=== PATIENT | female | born 1945 | race Caucasian/White ===

== ENCOUNTER 2017-10-12 13:22 | Inpatient (IN) | payer MEDICARE, MEDICAID ==
--- OUTSIDE RECORDS SUMMARY | 2017-10-12 13:29 | XMS REPORT ---
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 Shruti Clarke DO Primary Care Physician Unavailable Payers Type Date Identification Numbers Payment Provider Subscriber Medicare Primary Effective: Policy Number: Medicare Joselin Munoz 1996 [id number] PayID: [id number] [address] [place] [address] Medigap Part B Effective: 2012 Policy Number: BS Facets Joselin Munoz [id number] Expires: 2017 PayID: [id number] [address] [address] [place] [address] Medigap Part B Effective: 2016 Policy Number: [id number] Medicaid Joselin Munoz Group Name: 1 [address] PayID: [id number] [place] [address] Problems Date Description Provider Status Onset: 04/10/2013 Atrial fibrillation Ruben Bustamatne M.D. Active Onset: 04/10/2013 Chest pain Ruben Bustamante M.D. Active Onset: 04/10/2013 Preoperative cardiovascular Ruben Bustamante M.D. Active examination Onset: 04/10/2013 Abnormal results of cardiovascular Ruben Bustamante M.D. Active function studies Family History Date Family Member(s) Problem(s) Comments General Lung Cancer father General Arthritis bother, sister General Pulmonary Embolism (Pe) father Social History Type Date Description Comments Lives With Assisted living Occupation Retired ETOH Use Denies alcohol use Smoking Patient is a former smoker pack and half a day, quit in 1999 Recreational Drug Use Denies Drug Use Exercise Type/Frequency Does not exercise Allergies, Adverse Reactions, Alerts Date Description Reaction Status Severity Comments 04/10/2013 Dilaudid active Medications Medication Date Status Form Strength Qnty SIG Indications Ordering Provider Oxycodone HCL Active up to 6 tabs Unknown /0000 po qd prn Gemfibrozil Active Tablets 600mg 180ta 1 po bid Unknown / bs Furosemide Active Tablets 20mg 90tab 1 po qd Unknown /0000 s Lantus Active Solution 100Unit/M 6Vial sliding Unknown / L s scale Atorvastatin Active Tablets 40mg 90tab take 1 Unknown Calcium / s tablet at bedtime Citalopram Active Tablets 20mg 30tab 1 po qd Unknown Hydrobromide /0000 s Metoprolol Active Tablets 25mg 1/2 tab by Unknown Tartrate /0000 mouth twice a day Amiodarone HCL Active Tablets 200mg 1 by mouth Unknown / every day Warfarin Sodium Active Tablets 2.5mg Unknown / Humalog Active Solution 100Unit/M 4u subq 1x a Unknown /0000 Cartridge L day 6u subq 2x a day Milk Of Active Suspension 400mg/5ML 30 Unknown Magnesia /0000 milliliters by mouth every day at bedtime as needed for constipation Skin Prep Wipes Active Unknown /0000 Tylenol Extra Active Tablets 500mg 2 by mouth Unknown Strength /0000 as needed Vitamin C Active Capsules 500-400mg 1 by mouth Unknown / -Unit every day W/Vitamin E Vitamin D3 Active Tablets 95179Qxyl one by mouth Unknown Ultra Potency /0000 once weekly Miconazole Active Cream 2% apply twice Unknown Nitrate /0000 a day until clear Baclofen 00/00 Active 5mg q 8hrs Unknown /0000 Calazime Skin Active Paste Unknown Protectant/Oliv / amine Hydrocortisone Active Ointment 1% Unknown /0000 Methocarbamol 05/16 Hx Tablets 500mg 45tab one to two Dany Waller /2009 s up to qid Farida, - prn for M.D. 04/08 Hydrocodone/Vimal 03/28 Hx Tablets 5-325mg 90tab 1-2 po qid Dany Waller taminophen s prn Román Iqbal M.DFrancisco 04/09 Oxycodone HCL 01/09 Hx Tablets 5mg 90tab 1-2 po qid Dany Waller /2009 s prRomán Gar M.D. 03/28 Valium 10/04 Hx Tablets 5mg 3tabs 1 po 2 hours Dany Waller prior to mri Farida, - may take one M.D. 04/09 more q 1 hr /2012 prn anxiety Levothyroxine Hx Tablets 125mcg 90tab 1 po qd Unknown Sodium /0000 s - 03/[address] 20mg 90cap 1 po qd Unknown /0000 s - 03/16 Multivitamins Hx Capsules 30cap 1 capsule Unknown /0000 s ophelia;y - 03/16 Gabapentin Hx Capsules 100mg 240ca 2 po bid Unknown /0000 ps - 03/16 B-12 Hx 1200mg 1 po qd Unknown /0000 - 03/16 Glipizide Hx Tablets 5mg 60tab 1 po bid Unknown /0000 s - 03/07 Aspirin Ec Hx Tablets DR 81mg 100ta 1 by mouth Unknown /0000 bs every day - 03/16 Glucosamine Hx Capsules 1500Com bid Unknown Chondroitin /0000 1500 Complex - Maximum 03/10 Celexa 00 Hx Tablets 10mg 1 by mouth Unknown /0000 every day - 03/10 Docusate Sodium 00 Hx Capsules 100mg 1 by mouth Unknown /0000 twice a day - 03/16 Humalog Mix Hx Suspension (75-25)10 8 units sq Unknown 75/25 /0000 0Unit/ML twice a day - with 03/26 breakfast /2017 and dinner Cipro Hx Tablets 500mg 1 by mouth Unknown /0000 twice a day - 03/16 Albuterol 00 Hx Nebulizer (2.5mg/3M 1 vial via Unknown Sulfate /0000 L) 0.083% nebulizer 4 - times daily 03/16 as needed Medications Administered in Office Medication Date Status Form Strength Qnty SIG Indications Ordering Provider Inj, Administered Injection Ruben D. Regadenoson, 013 Valdo Bustamante 0.1 MG Technetium TC Administered Injection Ruben DFrancisco 99M 013 Valdo Bustamante Tetrofosmin, Per Unit Dose Up To 40 Millicuries Vital Signs Date Vital Result Comment 09/26/2017 Height 65 inches 5'5" Heart Rate 66 /min Respiratory Rate 20 /min Body Temperature 96.1 F Pain Level 0 06/27/2017 Heart Rate 49 /min BP Systolic Sitting 134 mmHg BP Diastolic Sitting 64 mmHg Body Temperature 96.5 F 03/26/2017 Height 65 inches 5'5" Weight 229.00 lb BP Systolic 115 mmHg BP Diastolic 81 mmHg Respiratory Rate 16 /min Body Temperature 98.2 F BMI (Body Mass Index) 38.1 kg/m2 12/07/2016 Height 65 inches 5'5" Weight 266.00 lb BP Systolic 115 mmHg BP Diastolic 83 mmHg Body Temperature 97.7 F Pain Level 5 BMI (Body Mass Index) 44.3 kg/m2 09/18/2016 Height 65 inches 5'5" Weight 266.00 lb Heart Rate 72 /min BP Systolic 130 mmHg BP Diastolic 82 mmHg Respiratory Rate 20 /min Body Temperature 96.0 F Pain Level 0 BMI (Body Mass Index) 44.3 kg/m2 08/24/2016 Height 65 inches 5'5" Weight 266.00 lb Heart Rate 68 /min Respiratory Rate 16 /min Body Temperature 97.6 F Pain Level 4 BMI (Body Mass Index) 44.3 kg/m2 07/24/2016 Height 65 inches 5'5" Weight 266.00 lb Heart Rate 60 /min BP Systolic 130 mmHg BP Diastolic 68 mmHg Respiratory Rate 16 /min Pain Level 1 BMI (Body Mass Index) 44.3 kg/m2 06/19/2016 Height 65 inches 5'5" Weight 266.00 lb Pain Level 0 BMI (Body Mass Index) 44.3 kg/m2 06/01/2016 Height 65 inches 5'5" Weight 266.00 lb Respiratory Rate 18 /min Pain Level 0 BMI (Body Mass Index) 44.3 kg/m2 05/10/2016 Respiratory Rate 17 /min Body Temperature 98.8 F Pain Level 0 04/24/2016 Height 65 inches 5'5" Weight 266.00 lb Heart Rate 60 /min Respiratory Rate 16 /min Pain Level 0 BMI (Body Mass Index) 44.3 kg/m2 04/13/2016 Height 65 inches 5'5" Weight 266.00 lb Pain Level 0 BMI (Body Mass Index) 44.3 kg/m2 04/03/2016 Height 65 inches 5'5" Weight 266.00 lb Heart Rate 60 /min Respiratory Rate 16 /min Pain Level 0 BMI (Body Mass Index) 44.3 kg/m2 03/29/2016 Height 65 inches 5'5" Weight 266.00 lb Pain Level 0 BMI (Body Mass Index) 44.3 kg/m2 03/22/2016 Height 65 inches 5'5" Weight 266.00 lb Body Temperature 95.8 F BMI (Body Mass Index) 44.3 kg/m2 03/15/2016 Height 65 inches 5'5" Weight 266.00 lb Pain Level 2 BMI (Body Mass Index) 44.3 kg/m2 03/08/2016 Height 65 inches 5'5" Weight 266.00 lb Heart Rate 56 /min BP Systolic 120 mmHg BP Diastolic 59 mmHg BMI (Body Mass Index) 44.3 kg/m2 05/27/2014 Height 63 inches 5'3" Weight 280.00 lb with shoes Heart Rate 64 /min regular BP Systolic Sitting 102 mmHg right arm large cuff BP Diastolic Sitting 58 mmHg right arm large cuff BP Systolic Standing 100 mmHg right arm large cuff BP Diastolic Standing 54 mmHg right arm large cuff Respiratory Rate 18 /min BMI (Body Mass Index) 49.6 kg/m2 04/10/2013 Height 63 inches 5'3" Weight 264.00 lb Heart Rate 48 /min BP Systolic 104 mmHg Ra large cuff BP Diastolic 54 mmHg Ra large cuff BP Systolic Sitting 104 mmHg LA large cuff BP Diastolic Sitting 56 mmHg LA large cuff BP Systolic Standing 100 mmHg LA BP Diastolic Standing 54 mmHg LA Respiratory Rate 16 /min BMI (Body Mass Index) 46.8 kg/m2 Results Test Date Test Result H/L Range Note Laboratory test 02/06/2016 Point of Care Glucose 209 mg/dL High 74-106 1 finding Laboratory test 02/06/2016 Point of Care Glucose 182 mg/dL High 74-106 2 finding Creatinine 06/12/2011 Creatinine 2.0 mg/dL High 0.50-1.40 One Over Creatinine 0.50 eGFR Non- 24.9 > 60 eGFR 32.0 > 60 3 Comp Metabolic Panel 01/15/2010 Sodium 137 mmol/L 135-145 Potassium 4.6 mmol/L 3.5-5.0 Chloride 106 mmol/L 101-111 Co2 (Carbon Dioxide) 22.0 mmol/L 22-32 Anion Gap 9.0 mmol/L 2-11 4 Glucose 208 mg/dL High 70-100 5 BUN 32 mg/dL High 6-24 Creatinine 1.70 mg/dL High 0.50-1.40 One Over Creatinine 0.50 BUN/Creatinine Ratio 18.8 8-20 Calcium 8.8 mg/dL 8.1-9.9 6 Total Protein 6.5 GM/DL 6.2-8.1 Albumin 3.2 GM/DL 3.2-5.2 Globulin 3.3 GM/DL 2-4 Albumin/Globulin Ratio 1.0 1-3 Bilirubin Total 0.5 mg/dL 0.4-1.5 7 Alkaline Phosphatase 70 U/L 30-110 Alt (SGPT) 9 U/L Low 14-54 Ast (Sgot) 33 U/L 12-42 eGFR Non- 32.0 > 60 eGFR 38.7 > 60 8 CBC With Electronic Diff 01/15/2010 White Blood Count 10.6 CUMM 4.8-10.8 Red Cell Count 2.75 CUMM Low 4.2-5.4 Hemoglobin 8.6 g/dL Low 12.0-16.0 Hematocrit 25 % Low 35-47 Mean Corpuscular Volume 92 um3 79-97 Mean Corpuscular Hemoglob 31 pg 27-31 Mean Corpuscular HGB Cone 34 g/dL 32-36 Redcell Distribution WDTH 15 % 10.5-15 Platelet Count 252 CUMM 150-450 Mean Platelet Volume 7.3 um3 Low 7.4-10.4 Manual Differential 01/15/2010 Polysegmented Neutrophil 78 % 38-83 Lymphocyte 17 % Low 25-47 Monocyte 4 % 0-13 Eosinophil 1 % 0-6 Absolute Neutrophil Count 8.2 RBC Morphology NORMAL Urinalysis W/Microscopic 01/15/2010 Ua Color YELLOW Yellow Appearance-Urine CLEAR Clear Specific [place]-Ur 1.014 1.010-1.030 Esterase-Urine 2+ Negative Nitrite NEGATIVE Negative Anfzhjbxiqtn-Pz-WUZ NEGATIVE Negative Protein-Urine NEGATIVE Negative PH-Urine 5.5 5-9 Blood-Urine NEGATIVE Negative Ketones-Urine NEGATIVE Negative Bilirubin-Ur NEGATIVE Negative Glucose-Urine NEGATIVE Negative WBC-Urine 20-25 0-5 RBC-Urine 0-2 0-2 Epith Cells-Ur FEW None Bacteria-Urine 4+ None Urine Culture & 01/15/2010 Urine Culture ENTEROBACTER AER <SEE 9 Sensitivi Sensitivi NOTE> Anaerobic Culture 01/15/2010 Anaerobic Culture NG5 10 Bottle Bottle Blood Culture 01/15/2010 Aerobic Culture Bottle NG5 11 Ursc-1 01/15/2010 Ampicillin >=32 Amikacin <=2 Ciprofloxacin <=0.25 Ceftriaxone 8 Cefazolin >=64 Nitrofurantoin 64 Gentamicin <=1 Imipenem 2 Levofloxacin <=0.12 Trimeth-Sulfa <=20 Ceftazidime 16 Tigecycline <=0.5 Piperacillin/Tazobactam 8 Surgical Pathology 01/12/2010 Surgical Pathology <SEE 12 NOTE> Laboratory test 01/05/2010 Release Date 01/14/10 13, 14 finding Type And Screen 01/05/2010 Patient Blood Type O POSITIVE 13 Antibody Screen NEGATIVE 13 Specimen Discard Date 01/19/10 13, 15 Basic Metabolic Panel 01/05/2010 Sodium 141 mmol/L 135-145 13 Potassium 5.4 mmol/L High 3.5-5.0 13 Chloride 109 mmol/L 101-111 13 Co2 (Carbon Dioxide) 22.0 mmol/L 22-32 13 Anion Gap 10.0 mmol/L 2-11 13, 16 Glucose 54 mg/dL Low 70-100 13, 17 BUN 49 mg/dL High 6-24 13 Creatinine 2.23 mg/dL High 0.50-1.40 13 One Over Creatinine 0.40 13 BUN/Creatinine Ratio 22.0 High 8-20 13 Calcium 10.2 mg/dL High 8.1-9.9 13, 18 eGFR Non- 23.4 > 60 13 eGFR 28.3 > 60 13, 19 Laboratory test finding 01/05/2010 PTT (Aptt) 29.4 25.15-38.53 13, 20 Protime 01/05/2010 Inr 1.05 High 0.97-1.03 13, 21 Protime 12.4 SEC High 11.5-12.2 13, 22 CBC With Electronic Diff 01/05/2010 White Blood Count 9.1 CUMM 4.8-10.8 13 Red Cell Count 2.77 CUMM Low 4.2-5.4 13 Hemoglobin 8.6 g/dL Low 12.0-16.0 13 Hematocrit 26 % Low 35-47 13 Mean Corpuscular Volume 94 um3 79-97 13 Mean Corpuscular Hemoglob 31 pg 27-31 13 Mean Corpuscular HGB Cone 33 g/dL 32-36 13 Redcell Distribution WDTH 16 % High 10.5-15 13 Platelet Count 356 CUMM 150-450 13 Mean Platelet Volume 7.1 um3 Low 7.4-10.4 13 Gran % 69.2 % 38-83 13 Lymph % 19.2 % Low 25-47 13 Mononuclear % 8.0 % 1-9 13 Eosinophil % 3.2 % 0-6 13 Basophil % 0.4 % 0-2 13 Abs Lymphs 1.7 1.0-4.8 13 Abs Mononuclear 0.7 0-0.8 13 Absolute Neutrophil Count 6.3 1.5-7.7 13 Abs Eosinophils 0.3 0-0.6 13 Abs Basophils 0 0-0.2 13, 23 1 Handcrew Foreman: [id number] BEL RENNER 2 Handcrew Foreman: [id number] [place] JUN 12 Because ethnic data is not always readily available, this report includes an eGFR for both -Americans and non- Americans. The National Kidney Disease Education Program (NKDEP) does not endorse the use of the MDRD equation for patients that are not between the ages of 18 and 70, are , have extremes of body size, muscle mass, or nutritional status, or are non- or non-. According to the National Kidney Foundation, irrespective of diagnosis, the stage of the disease is based on the level of kidney function: Stage Description GFR(mL/min/1.73 m(2)) 1 Kidney damage with normal or decreased GFR 90 2 Kidney damage with mild decrease in GFR 60-89 3 Moderate decrease in GFR 30-59 4 Severe decrease in GFR 15-29 5 Kidney failure <15 (or dialysis) 4 Anion gap measurement may be of limited value in the presence of any alkalosis, especially in a combined acid base disorder. . 5 Note change in reference range as of 01/29/08. The change was based on recommendations from the [place] [employer]. 6 Please note change in reference range effective 07 . 7 A metabolite of Naproxen, O-desmethylnaproxen, has been shown to interfere with the Jendrassik-Paton method for measuring total bilirubin. Samples from patients who have taken Naproxen have shown spurious elevation in total bilirubin levels. 8 Because ethnic data is not always readily available, this report includes an eGFR for both -Americans and non- Americans. The National Kidney Disease Education Program (NKDEP) does not endorse the use of the MDRD equation for patients that are not between the ages of 18 and 70, are , have extremes of body size, muscle mass, or nutritional status, or are non- or non-. According to the National Kidney Foundation, irrespective of diagnosis, the stage of the disease is based on the level of kidney function: Stage Description GFR(mL/min/1.73 m(2)) 1 Kidney damage with normal or decreased GFR 90 2 Kidney damage with mild decrease in GFR 60-89 3 Moderate decrease in GFR 30-59 4 Severe decrease in GFR 15-29 5 Kidney failure <15 (or dialysis) 9 ENTEROBACTER AEROGENES 100^75-100,000 ORGANISMS/ML (MANY)^CCU NORMAL CED 25^10-25,000 ORGANISMS/ML (MODERATE)^CCU 10 NO GROWTH AFTER 5 DAYS 11 NO GROWTH AFTER 5 DAYS 12 ---- RUN DATE: 01/19/10 [facility] NMI LIVE PAGE 1 RUN TIME: 1215 Specimen Inquiry RUN USER: INTERFACE -- Name: JOSELIN MUNOZ Status: DIS IN Re01/12/10 Age/Sex: 64/F Unit#: [id number] Location: [facility]. : 43 -- Spec[id number] [facility]: 01/12/[address] [facility] [address]: Dany bailey MD Spec Type: SURGICAL P Received: 01/12/10-1203 Copies to: SPECIMEN L3 TO L5 LAMINA AND SPINUS PROCESS AND LIGAMENT HISTORY PRE-OP DIAGNOSIS: L3/L5 Lumbar stenosis. GROSS DESCRIPTION The specimen is received in formalin labelled Joselin Branham Michela, L3 to L5 Lamina and Spinous Process and Ligament, and consists of multiple fragments of bone and dense fibrous tissue measuring in aggregate 5.0 x 4.0 x 2.5 cm. Composite Technician section, one cassette after decal. 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 B) Normocellular bone marrow with mixed trilineal hematopoiesis. C) Ligament tissue with dense fibrosis and myxoid degeneration. Signed Electronically by: FOREIGN BROWN MD 01/19/10 1214 -- -- DEPARTMENT OF PATHOLOGY, [address] [place] [address] [facility] Permit #[id number] Foreign Brown M.D. Director Chaz Kat M.D. Process Architect Dir mariam -- 13 01/12 14 ANY BLOOD NOT GIVEN WILL BE RELEASED AT 0700 ON THE ABOVE DATE UNLESS DOCTOR NOTIFIES LAB OTHERWISE. 15 PREADMISSION TESTING SAMPLES FOR BLOOD BANK WILL BE HELD FOR 14 DAYS FROM THE DATE OF COLLECTION *IF* THE FOLLOWING CRITERIA ARE MET: 1) THE PATIENT HAS *NOT* BEEN IN THE LAST 3 MONTHS. 2) THE PATIENT HAS *NOT* BEEN TRANSFUSED IN THE LAST 3 MONTHS. PREADMISSION TESTING SAMPLES WILL *NOT* BE HELD FOR 14 DAYS FROM PATIENTS WHO IN THE LAST 3 MONTHS: 1) HAVE BEEN 2) HAVE BEEN TRANSFUSED THESE PATIENTS *MUST* BE COLLECTED WITHIN 3 DAYS OF THE SURGERY DATE. 16 Anion gap measurement may be of limited value in the presence of any alkalosis, especially in a combined acid base disorder. . 17 Note change in reference range as of 01/29/08. The change was based on recommendations from the [place] Diabetes [employer]. 18 Please note change in reference range effective 07 . 19 Because ethnic data is not always readily available, this report includes an eGFR for both -Americans and non- Americans. The National Kidney Disease Education Program (NKDEP) does not endorse the use of the MDRD equation for patients that are not between the ages of 18 and 70, are , have extremes of body size, muscle mass, or nutritional status, or are non- or non-. According to the National Kidney Foundation, irrespective of diagnosis, the stage of the disease is based on the level of kidney function: Stage Description GFR(mL/min/1.73 m(2)) 1 Kidney damage with normal or decreased GFR 90 2 Kidney damage with mild decrease in GFR 60-89 3 Moderate decrease in GFR 30-59 4 Severe decrease in GFR 15-29 5 Kidney failure <15 (or dialysis) 20 PLEASE NOTE NEW REFERENCE RANGE EFFECTIVE 09. 21 Recommended INR for Patients on Oral Anticoagulants Prophylaxis 2.0 - 3.0 Treatment of thrombosis 2.0 - 3.0 Prevention of embolism 2.0 - 3.0 Prevention of embolism from prosthetic heart valves 2.5 - 3.5 22 DIAGNOSIS,TREATMENT,AND THERAPY MUST BE BASED ON THE INR VALUE ALONE. 23 Lymphopenia % Anemia Procedures Date CPT Code Description Status 06/19/2016 10668 Walking Cast Completed 06/01/2016 16320 Walking Cast Completed 05/19/2016 11914 EKG, Interpretation Only Completed 05/10/2016 53096 Walking Cast Completed 04/26/2016 68248 Walking Cast Completed 04/24/2016 80706 Walking Cast Completed 04/13/2016 20866 Walking Cast Completed 04/03/2016 01747 Walking Cast Completed 03/29/2016 85117 Walking Cast Completed 03/22/2016 89665 Short Leg Cast Completed 03/15/2016 11287 Short Leg Cast Completed 02/06/2016 37339 ORIF Open TX Bimalleolar Ankle FX Includes Internal Completed Fixation 02/06/2016 39360 ORIF Open TX Bimalleolar Ankle FX Includes Internal Completed Fixation 02/01/2016 32484 EEG Recording Awake & Asleep Completed 01/20/2016 45442 EEG Recording Awake & Drowsy Completed 01/19/2016 93900 EKG, Interpretation Only Completed 01/17/2016 70303 ECHO Transthorasic Realtime 2D W Doppler & Color Completed Flow [facility]osp 05/27/2014 14194 EKG Tracing & Interpretation Completed 04/24/2013 86377 Stress Test Completed 04/24/2013 93763 Myocardial Perfusion Imaging Tomographic (Spect) Completed Multiple Studies 04/10/2013 48454 EKG Tracing & Interpretation Completed 12/03/2012 25843 EKG, Interpretation Only Completed 12/02/2012 88299 ECHO Transthorasic Realtime 2D W Doppler & Color Completed Flow [facility]osp 01/12/2010 89513 Pimentel/Facet/Foraminotomy;Ea Addl Segment; Cerv, Thora, Or Completed Lumbar 01/12/2010 28420 Pimentel/Facet/Foraminotomy;Vertebral Segment; Lumbar Completed Encounters Type Date Location Provider CPT E/M Dx Office Visit 08/27/2017 [facility] [place] [address] M25.572 8:15a Office Visit 06/27/2017 [facility] M.D. 21154 M19.172 9:15a Of [facility] Office Visit 05/29/2017 [facility] [place] [address] M25.512 8:45a Office Visit 05/21/2017 [facility] [place] [address] I63.10 8:15a I48.0 Z51.81 Z79.01 Office Visit 05/09/2017 8:30[place] [address] S70.312A S70.311A Office Visit 04/26/2017 10:00a [facility] [place] [address] I63.40 S82.842G R47.01 Z99.3 Office Visit 04/23/2017 8:15a [facility] [place] [address] I48.2 Z79.01 I10 E03.9 Z79.4 E11.9 E78.5 Z99.3 Office Visit 04/18/2017 8:00a [facility] Katherin Lind, OBEY 10033 R05 Office Visit 03/26/2017 8:45a [facility] 71081 S82.842D Of Juju Lyle M14.672 Office Visit 03/13/2017 8:00a [facility] Katherin Lind, OBEY 89575 M25.572 Office Visit 02/13/2017 8:00a [facility] Taniya Appiah M.D. 86249 I63.10 I48.0 Z51.81 Z79.01 Office Visit 01/29/2017 10:00a [facility] Taniya Appiah M.D. 65327 I63.10 I48.0 Z51.81 Z79.01 Office Visit 12/07/2016 10:15a [facility] [address]1012 M14.672 Juju Lyle M25.372 Office Visit 09/18/2016 10:30a [facility] 81170 S82.842D Of Juju Lyle Office Visit 08/24/2016 10:00a [facility] 88714 S82.842D Of Juju Lyle Office Visit 07/24/2016 9:30a [facility] 27074 S82.842D Of Juju Lyle Office Visit 06/19/2016 9:30a [facility] 46267 S82.842D Of Juju Lyle Office Visit 06/01/2016 9:15a [facility] 42831 S82.842D Of Juju Lyle S82.842D Office Visit 05/24/2016 12:55p [facility], [place], [address] K92.2 Micha Lyle I48.91 E11.8 I10 Office Visit 05/23/2016 [facility] [place], [address] K92.2 Hospitalists MFranciscoDFrancisco I48.91 E11.8 I10 Office Visit 05/22/2016 12:55p [facility] [place], [address]11 K92.2 Hospitalists MFranciscoDFrancisco I48.91 E11.8 I10 Office Visit 05/21/2016 12:54p [facility] [place], [address] K92.2 Hospitalists MFranciscoDFrancisco I48.91 E11.8 Office Visit 05/20/2016 12:54p [facility] Taniya Appiah, 22920 K92.2 Hospitalists MFranciscoDFrancisco I48.91 E11.8 I10 Office Visit 05/19/2016 12:53p [facility] Taniya Armandohn, 93666 K92.2 Hospitalists MFranciscoDFrancisco I48.91 E11.8 I10 Office Visit 05/18/2016 12:53p [facility], Rob Parr, 29732 K92.2 Hospitalists NFranciscoPFrancisco I48.91 E11.8 I10 Office Visit 05/10/2016 9:15a [facility], 7101[address] S82.842D Of Juju Lyle S82.842D Office Visit 02/08/2016 2:32p [facility] Jose Angel Bam, [address] E11.9 Assoc,pc PA Hospitalists Z96.7 Z78.9 Z87.81 Office Visit 02/07/2016 [facility] [address] E11.9 Assoc,pc PA Hospitalists Z96.7 Z78.9 Z87.81 Office Visit 02/06/2016 2:28p [facility] Jose Angel Elisabetha-Yani, 32558 E11.9 Assoc,pc PA Hospitalists Z96.7 Z78.9 Z87.81 Office Visit 02/04/2016 3:50p [facility], 46640 S82.842A Juju Lyle Office Visit 02/04/2016 4:13p [facility], 05900 S82.852A Juju Lyle Office Visit 02/03/2016 9:15a [facility] [place] Qu[place] [address] I69.320 I10 S82.842A Z79.01 Office Visit 02/02/2016 7:00a [facility], 98723 S82.842A Juju Lyle Office Visit 02/02/2016 1:49p [facility], Rob Keshav, 48423 R47.01 Hospitalists N.P. I48.2 N30.01 I63.412 Office Visit 02/01/2016 2[facility]p [facility] [place] [address] R47.01 Assoc, Hospitalists Valdo I48.2 N30.01 I63.412 Office Visit 01/24/2016 12:44p [facility], Varun Hodges, 30801 I63.9 Hospitalists M.DFrancisco E11.9 E66.01 Z79.4 Office Visit 01/23/2016 12:43p [facility], Varun Hodges, 58630 I63.9 Hospitalists MFranciscoDFrancisco E11.9 E66.01 Z79.4 Office Visit 01/22/2016 11:33a [facility] Wu Hernandez 59023 I63.512 Valdo Valiente I65.29 I10 I48.91 Office Visit 01/22/2016 12[facility]p [facility] Taniya App[place], 58141 I63.9 Hospitalists Valdo E11.9 E66.01 Z79.4 Office Visit 01/21/2016 12:12p [facility] Wu Hernandez 64015 I63.512 Valdo Valiente I48.91 I65.29 I10 Office Visit 01/21/2016 12:42p [facility], Taniya Appiah, 32662 I63.9 Hospitalists MFranciscoDFrancisco E11.9 E66.01 Z79.4 Office Visit 01/20/2016 12[facility] [place] [address] I63.9 Hospitalists E11.9 E66.01 Z79.4 Office Visit 01/20/2016 12:09p [facility] Myra Marquez, 75457 I63.512 M.DFrancisco R25.1 R40.0 I10 I48.91 Office Visit 01/19/2016 12:06p [facility] Myra Marquez, 79909 I63.512 M.D. I10 I48.91 R25.1 R40.0 Office Visit 01/19/2016 12:41p [facility], [place] [address] I63.9 Hospitalists E11.9 E66.01 Z79.4 Office Visit 01/18/2016 1:56p [facility] Myra Marquez, 97728 I63.512 M.D. I10 I48.91 I65.29 Office Visit 01/18/2016 12:41p [facility], [place] [address] I63.9 Hospitalists E11.9 E66.01 Z79.4 Office Visit 01/17/2016 12:40p [facility], [place] [address] I63.9 Hospitalists E11.9 E66.01 Z79.4 Office Visit 01/17/2016 9:22a [facility] Darek Edmondpert, 65845 I63.512 I10 I48.91 Office Visit 01/16/2016 12:39p [facility], Blane Martinez M.D. 36682 G45.9 Hospitalists E11.9 E66.01 Z79.4 Office Visit 05/27/2014 9:30a [facility] Ruben Bustamante 47990 427.31 Vamsi Lyle Office Visit 04/10/2013 1:00p [facility] Ruben Bustamante 59362 427.31 Vamsi Lyle 786.50 V72.81 794.39 Office Visit 12/11/2012 3:51p [facility],scooter Martinez M.D. 52435 578.1 Hospitalists 280.0 Office Visit 12/10/2012 3:50p [facility],scooter Martinez M.D. 42039 578.1 Hospitalists 280.0 Office Visit 12/09/2012 3:50p [facility],pc [place], 43259 578.1 Hospitalists M.D. 280.0 Office Visit 12/08/2012 3:50p [facility],pc [place], 46572 578.1 Hospitalists M.D. 280.0 Office Visit 12/06/2012 3:36p [facility],pc [place], 02491 285.1 Hospitalists M.D. 578.9 411.89 Office Visit 12/05/2012 3:36p [facility],pc [place], 02801 285.1 Hospitalists M.D. 578.9 411.89 Office Visit 12/04/2012 3:36p [facility],pc [place], 31861 285.1 Hospitalists M.D. 578.9 411.89 Office Visit 12/03/2012 3:35p [facility],pc [place], 28924 285.1 Hospitalists M.D. 578.9 411.89 Office Visit 12/03/2012 4:07p [facility] Jalen Snyder M.D., 11080 794.31 [facility] FAC, FSCAI 411.1 424.1 Office Visit 12/02/2012 3:35p [facility], [place], 57375 285.1 Hospitalists M.D. 578.9 794.31 Office Visit 06/18/2012 1:20p [facility] Dany Iqbal, 41829 724.02 Of Vamsi M.DFrancisco Office Visit 06/12/2011 1:20p [facility] Dany Iqbal 62521 724.02 Of Vamsi M.DFrancisco Office Visit 05/15/2011 3:00p [facility] Dany Iqbal 43756 724.02 Of Vamsi M.DFrancisco Office Visit 12/26/2010 11:00a [facility] Dany Iqbal 23844 724.02 Of Vamsi M.DFrancisco Office Visit 09/25/2010 11:40a [facility] Dany Iqbal, 70929 724.02 Of Seam Stay Stitcher M.D. Office Visit 06/26/2010 9:40a [facility] Dany Iqbal, 28340 724.02 Of Vamsi Lyle Office Visit 01/09/2010 3:40p [facility] Dany Iqbal, 74613 724.02 Of Vamsi MMartell Office Visit 12/09/2009 10:40a [facility] Dany Iqbal, 23534 724.02 Of Vamsi Lyle Office Visit 11/22/2009 1:40p [facility] Dany Iqbal, 81333 781.2 Of Vamsi Lyle Office Visit 10/14/2009 9:20a [facility] Dany Iqbal, 74658 781.2 Of Vamsi Lyle Office Visit 10/04/2009 1:40p [facility] Dany Iqbal, 74794 781.2 Of Vamsi Lyle Plan of Care Future Appointment(s):12/26/2017 9:30 am - Rio Tim M.D. at [facility]09/26/2017 - Rio Tim M.D.M14.622 Charcot's joint, left elbowFollow up:3 months
[2017-10-12 14:47] LABS: ABS Basophils 0.1 10^3/ul (0-0.2); ABS Eosinophils 0.5 10^3/ul (0-0.6); ABS Lymphocytes 1.3 10^3/ul (1.0-4.8); ABS Monocytes 0.6 10^3/ul (0-0.8); ABS Neutrophils 5.2 10^3/ul (1.5-7.7); ABS Nucleated RBC 0 10^3/ul; Eosinophil % 5.9 % (0-6); Hematocrit 36 % (35-47); Hemoglobin 11.8 g/dl (12.0-16.0); Lymphocyte % 17.5 % (25-47); Mean Corpuscular HGB Conc 33 g/dl (31-36); Mean Corpuscular Hemoglobin 30 pg (27-31); Mean Corpuscular Volume 93 fL (80-97); Mean Platelet Volume 8.5 um3 (7.4-10.4); Nucleated Red Blood Cells % 0.1; Platelet Count 181 10^3/ul (150-450); Red Blood Count 3.86 10^6/ul (4.0-5.4); Red Cell Distribution Width 15 % (10.5-15); White Blood Count 7.7 10^3/ul (3.5-10.8)
--- NOTE | 2017-10-12 14:55 | RAD ---
INDICATION: Left ankle deformity. COMPARISON: Comparison is made with a prior study from September 18, 2016. TECHNIQUE: 3 views of the left ankle were obtained. FINDINGS: There is diffuse soft tissue swelling. The patient is status post operative reduction internal fixation. There are metallic plates present along the distal tibia and fibula transfixed with multiple screws. There is medial dislocation of the talus relative to the tibia which has progressed slightly from the prior study. The metallic plate present along the medial aspect of the tibia is eroding into the dome of the talus which appears similar to the prior study. There is a chronic ununited bony density medial to the talus likely representing an old fracture fragment which is also unchanged possibly arising from the medial malleolus. IMPRESSION: 1. DIFFUSE SOFT TISSUE SWELLING. 2. MEDIAL DISLOCATION OF THE TALUS RELATIVE TO THE TIBIA WHICH HAS PROGRESSED FROM THE PRIOR STUDY. 3. EROSION OF THE MEDIAL SURGICAL PLATE INTO THE DOME OF THE TALUS SIMILAR TO THE PRIOR EXAM. 4. CONSIDER AN UNDERLYING INFECTIOUS PROCESS.
[2017-10-12 15:04] LABS: EGFR Non-African American 27.3 (>60)
[2017-10-12] MEDS ORDERED: ceFAZolin 1 GM VIAL(*) 1 GM in NS 0.9% 50 ML* 50 ML IVPB ONE (16:47)
[2017-10-12] MEDS ORDERED: ceFAZolin 1 GM* X ONE DOSE IVPB ×2 (17:00)
--- NOTE | 2017-10-12 17:18 | RAD ---
INDICATION: Possible sepsis. COMPARISON: Correlation is made with a prior study from May 18, 2016. TECHNIQUE: A portable view of the chest was obtained. FINDINGS: Cardiac and mediastinal contours appear to be within normal limits. There is a small infiltrate at the right lung base. The lungs are otherwise clear. No pleural effusion is seen. IMPRESSION: SMALL RIGHT BASILAR INFILTRATE.
[2017-10-12] MEDS ORDERED: Acetaminophen TAB* 325 MG PO PRN (17:51)
[2017-10-12] MEDS ORDERED: Al Hydrox/Mg Hydrox/Simet LIQ* 30 ML UDC PO PRN (17:51)
[2017-10-12] MEDS ORDERED: Dextrose 50% Syringe 50 ML* 25 GM/50 ML SYRINGE IV PUSH PRN (17:53)
[2017-10-12] MEDS ORDERED: Baclofen TAB* 10 MG PO PRN (17:54)
[2017-10-12] MEDS ORDERED: hydrALAZINE IV* 20 MG/ML VIAL IV SLOW PU PRN (17:56)
[2017-10-12 17:58] LABS: INR 2.4 (0.77-1.02)
[2017-10-12] MEDS ORDERED: Phytonadione Oral Solution* 5 MG/25 ML UDC PO ONE (17:58)
[2017-10-12] MEDS ORDERED: ceFAZolin 1 GM VIAL(*) 1 GM in NS 0.9% 50 ML* 50 ML IVPB SCH (18:00)
[2017-10-12] MEDS ORDERED: Insulin GLARGINE(*) 1 UNITS UNIT SUBCUT SCH (18:00)
--- NOTE | 2017-10-12 18:02 | ED ---
Palmoo Reyes Elizabeth, scribed for Stephan Painting MD on 10/12/17 at 1431 . Lower Extremity - HPI Summary HPI Summary: This patient is a 72 year old F presenting to [facility] with a chief complaint of an open wound to her left ankle. Patient notes she had surgery to repair a deformity to her left ankle 14-15 months ago and the hardware is visible through the wound. Symptoms aggravated by nothing. Symptoms alleviated by nothing. Patient reports inability to ambulate. Patient resides at [facility]. 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 Onset of Pain: Prior to Arrival Onset/Duration: Still Present Severity Currently: Mild Pain Intensity: 0 Timing: Constant Location: Is Discrete @ - left ankle Aggravating Factor(s): Nothing Alleviating Factor(s): Nothing - Allergies/Home Medications Allergies/Adverse Reactions: Allergies Allergy/AdvReac Type Severity Reaction Status Date / Time hydromorphone Allergy Altered Verified 10/12/17 13:35 Mental Status rivaroxaban [From Xarelto] Allergy Bleeding Verified 10/12/17 13:35 Home Medications: Home Medications Acetaminophen [Tylenol Extra Strength] 1,000 mg PO BEDTIME 10/12/17 [History Confirmed 10/12/17] Ascorbic Acid TAB* [Vitamin C TAB*] 500 mg PO BID 10/12/17 [History Confirmed 10/12/17] Atorvastatin* [Lipitor 80 MG*] 40 mg PO QPM 10/12/17 [History Confirmed 10/12/17 ] Baclofen TAB* [Lioresal TAB*] 5 mg PO Q8H PRN 10/12/17 [History Confirmed ] Cholecalciferol TAB* [Vitamin D TAB*] 50,000 unit PO MONTHLY 10/12/17 [History Confirmed 10/12/17] Ferrous Sulfate TAB* 325 mg PO DAILY 10/12/17 [History Confirmed 10/12/17] Furosemide TAB* [Lasix TAB*] 20 mg PO DAILY 10/12/17 [History Confirmed 10/12/17 ] Insulin LISPRO* [HumaLOG*] 4 unit SUBCUT QAM 10/12/17 [History Confirmed ] Insulin LISPRO* [HumaLOG*] 6 unit SUBCUT BID WITH MEALS 10/12/17 [History Confirmed 10/12/17] Levothyroxine TAB* [Synthroid TAB*] 125 mcg PO DAILY 10/12/17 [History Confirmed 10/12/17] Lidocaine 4% TOPICAL* [Xylocaine Topical 4%*] 1 patch TOPICAL DAILY 10/12/17 [ History Confirmed 10/12/17] Magnesium Hydroxide LIQ* [Milk of Magnesia LIQ*] 30 ml PO Q6H PRN 10/12/17 [ History Confirmed 10/12/17] Metoprolol Succinate XL TAB* [Toprol XL TAB*] 25 mg PO DAILY 10/12/17 [History Confirmed 10/12/17] Polyethylene Glycol 3350* [Miralax*] 17 gm PO DAILY 10/12/17 [History Confirmed 10/12/17] Warfarin TAB(*) [Coumadin TAB(*)] 2 mg PO QPM 10/12/17 [History Confirmed ] PMH/Surg Hx/FS Hx/Imm Hx Endocrine/Hematology History: Reports: Hx Diabetes - IDDM, Hx Thyroid Disease - hypothyroid, Hx Anemia Cardiovascular History: Reports: Hx Atrial Fibrillation, Hx Coronary Artery Disease, Hx Hypercholesterolemia, Hx Hypertension, Other Cardiovascular Problems /Disorders - A Fib, myocardial stenosis Denies: Hx Pacemaker/ICD Respiratory History: Reports: Hx Asthma, Hx Sleep Apnea GI History: Reports: Hx Gastroesophageal Reflux Disease, Hx Gastrointestinal Bleed, Other GI Disorders - GI BLEED History: Reports: Hx Kidney Infection Denies: Hx Dialysis, Hx Renal Disease Musculoskeletal History: Reports: Hx Arthritis, Other Musculoskeletal History - CHRONIC BACK PAIN, bilat knee replacements, recent L ankle fracture Sensory History: Reports: Hx Cataracts - Implant surgery L eye 2007, Hx Contacts or Glasses Denies: Hx Hearing Aid, Hx Hearing Problem Opthamlomology History: Reports: Hx Cataracts - Implant surgery L eye 2007, Hx Contacts or Glasses Neurological History: Reports: Hx CVA - with right-sided sequela, Hx Transient Ischemic Attacks (TIA) - "Mini-strokes" 20 yrs ago Denies: Hx Dementia, Hx Developmental Delay, Hx Headaches, Hx Migraine, Hx Nerve Disease, Hx Seizures, Hx Spinal Cord Injury, Other Neuro Impairments/ Disorders Psychiatric History: Reports: Hx Anxiety, Hx Depression, Other Psychiatric Issues/Disorders - claustrophobia Denies: Hx Panic Disorder - Cancer History Hx Chemotherapy: No Hx Radiation Therapy: No - Surgical History Surgery Procedure, Year, and Place: R knee replacement 2010, L3/L4 laminectomy. left knee replacement 2012. L ankle ORIF 01/10/16 Hx Anesthesia Reactions: No - Immunization History Date of Tetanus Vaccine: 2010 Date of Influenza Vaccine: Fall 2011 Infectious Disease History: Unable to Obtain/Confirm Infectious Disease History: Reports: Hx Shingles - pt states about 6 months ago , ON HER BACK Denies: Hx Clostridium Difficile, Hx Hepatitis, Hx Human Immunodeficiency Virus (HIV), Hx of Known/Suspected MRSA, Hx Tuberculosis, History Other Infectious Disease, Traveled Outside the [place] in Last 30 Days - Family History Known Family History: Positive: Hypertension, Other - lung cancer (father), brain cancer (brother) Negative: Cardiac Disease, Diabetes - Social History Alcohol Use: None Substance Use Type: Reports: None Smoking Status (MU): Former Smoker Type: Cigarettes Have You Smoked in the Last Year: No Review of Systems Negative: Fever Negative: Epistaxis Negative: Abdominal Pain Positive: Other - pain in left ankle All Other Systems Reviewed And Are Negative: Yes Physical Exam - Summary Physical Exam Summary: Appearance: The patient is well-nourished in no acute distress and in no acute pain. Skin: The skin is warm and dry and skin color reflects adequate perfusion. HEENT: The head is normocephalic and atraumatic. The pupils are equal and reactive. The conjunctivae are clear and without drainage. Nares are patent and without drainage. Mouth reveals moist mucous membranes and the throat is without erythema and exudate. The external ears are intact. The ear canals are patent and without drainage. The tympanic membranes are intact. Neck: the neck is supple with full range of motion and non-tender. There are no carotid bruits. There is no neck vein distension. Respiratory: Chest is non-tender. Lungs are clear to auscultation and breath sounds are symmetrical and equal. Cardiovascular: Heart is regular rate and rhythm. There is no murmur or rub auscultated. There is no peripheral edema and pulses are symmetrical and equal. Abdomen: The abdomen is soft and non-tender. There are normal bowel sounds heard in all four quadrants and there is no organomegaly palpated. Musculoskeletal: There is no back tenderness noted. Extremities are non-tender. There is good capillary refill. There is no peripheral edema or calf tenderness elicited. Varus deformity of left ankle. The left ankle is lax with a 2-3cm open wound over the lateral aspect of the ankle, through which hardware is visible. Neurological: Patient is alert and oriented to person, place and time. The patient has symmetrical motor strength in all four extremities. Cranial nerves are grossly intact. Deep tendon reflexes are symmetrical and equal in all four extremities. Psychiatric: The patient has an appropriate affect and does not exhibit any anxiety or depression. Triage Information Reviewed: Yes Vital Signs On Initial Exam: Initial Vitals Pulse Pulse Ox 53 96 10/12/17 13:29 10/12/17 13:29 Vital Signs Reviewed: Yes Diagnostics - Vital Signs Vital Signs Temp Pulse Resp BP Pulse Ox 10/12/17 14:00 48 19 96 10/12/17 13:53 98.7 F 54 14 120/75 95 10/12/17 13:30 50 97 10/12/17 13:29 53 96 - Laboratory Lab Results: Lab Results 10/12/17 10/12/17 10/12/17 Range/Units 14:39 14:39 14:39 WBC 7.7 (3.5-10.8) 10^3/ul RBC 3.86 L (4.0-5.4) 10^6/ul Hgb 11.8 L (12.0-16.0) g/dl Hct 36 (35-47) % MCV 93 (80-97) fL MCH 30 (27-31) pg MCHC 33 (31-36) g/dl RDW 15 (10.5-15) % Plt Count 181 (150-450) 10^3/ul MPV 8.5 (7.4-10.4) um3 Neut % (Auto) 68.0 (38-83) % Lymph % (Auto) 17.5 L (25-47) % [place] % (Auto) 7.6 H (0-7) % Eos % (Auto) 5.9 (0-6) % Baso % (Auto) 1.0 (0-2) % Absolute Neuts (auto) 5.2 (1.5-7.7) 10^3/ul Absolute Lymphs (auto) 1.3 (1.0-4.8) 10^3/ul Absolute Monos (auto) 0.6 (0-0.8) 10^3/ul Absolute Eos (auto) 0.5 (0-0.6) 10^3/ul Absolute Basos (auto) 0.1 (0-0.2) 10^3/ul Absolute Nucleated RBC 0 10^3/ul Nucleated RBC % 0.1 Sodium 140 (139-145) mmol/L Potassium 4.7 (3.5-5.0) mmol/L Chloride 107 (101-111) mmol/L Carbon Dioxide 26 (22-32) mmol/L Anion Gap 7 (2-11) mmol/L BUN 50 H (6-24) mg/dL Creatinine 1.81 H (0.51-0.95) mg/dL Est GFR ( Amer) 35.1 (>60) Est GFR (Non-Af Amer) 27.3 (>60) BUN/Creatinine Ratio 27.6 H (8-20) Glucose 143 H (70-100) mg/dL Lactic Acid 0.8 (0.5-2.0) mmol/L Calcium 9.2 (8.6-10.3) mg/dL Total Bilirubin 0.30 (0.2-1.0) mg/dL AST 11 L (13-39) U/L ALT 10 (7-52) U/L Alkaline Phosphatase 63 (34-104) U/L C-Reactive Protein 3.75 (< 5.00) mg/L Total Protein 7.1 (6.4-8.9) g/dL Albumin 3.5 (3.2-5.2) g/dL Globulin 3.6 (2-4) g/dL Albumin/Globulin Ratio 1.0 (1-3) Result Diagrams: 10/12/17 14:39 10/12/17 14:39 Lab Statement: Any lab studies that have been ordered have been reviewed, and results considered in the medical decision making process. - Radiology Ankle Left 3+VWS Xray Interpretation: Positive (See Comments) Radiology Interpretation Completed By: Radiologist CXR Xray Interpretation: Positive (See Comments) - IMPRESSION: SMALL RIGHT BASILAR INFILTRATE. Dr. Painting has reviewed this report. Radiology Interpretation Completed By: Radiologist Lower Extremity Course/Dx - Course Course Of Treatment: Ms. Abernathy presented with a concern for an open wound over her left ankle prosthesis laterally. She is at the correction and says that they take her brace off at night so she thinks the wound is new. She had surgery 14 months ago for a trimalleolar fracture and has had a varus deformity since and does not ambulate. She has a 2-3 cm wound with a small amount of thick pus laterally over the ankle, the foot moves freely in relation to the ankle and the prosthesis can be seen through the wound. She has normal vitals, her labs are normal and her x-ray is read by the radiologist as concerning for infection. Dr. Warren requests that we have the hospitalist service admit the the patient and she will take her to the OR to clean it out tomorrow. She was given Ancef here in the ED. - Diagnoses Provider Diagnoses: Wound dehiscence - Critical Care Time Critical Care Time: 30-74 min Discharge - Sign-Out/Discharge Documenting (check all that apply): Discharge/Admit/Transfer - Discharge Plan Condition: Stable Disposition: ADMITTED TO [facility] Referrals: Sunny Baltazar MD [Primary Care Provider] - - Billing Disposition and Condition Condition: STABLE Disposition: [facility] [place] The documentation as recorded by the Palomo metz Elizabeth accurately reflects the service I personally performed and the decisions made by , Stephan Painting MD.
[2017-10-12] MEDS: Docusate CAP* 100 MG PO SCH (21:54)
[2017-10-12] MEDS: Atorvastatin* 40 MG TAB PO SCH (21:54)
[2017-10-12] MEDS: Insulin LISPRO* 1 UNITS UNIT SUBCUT SCH (21:54)
[2017-10-12] MEDS: Heparin VIAL(*) 5000 UNITS/ML VIAL (FIVE THOUSAND) SUBCUT SCH (21:55)
[2017-10-12] MEDS: Lidocaine Patch REMOVE* 1 NOTE MISC SCH (21:55)
--- NOTE | 2017-10-12 22:20 | HP ---
CC: Dr. Tim; Dr. Warren; Dr. Clarke; Dr. Canales HISTORY AND PHYSICAL: DATE OF ADMISSION: 10/12/17 PRIMARY CARE PROVIDER: Shruti Clarke DO from [facility] as well as Dr. Canales from [facility]. CHIEF COMPLAINT: Left ankle wound. HISTORY OF PRESENT ILLNESS: Joselin Abernathy is a 72-year-old female with history of paroxysmal atrial fibrillation as well as expressive aphasia due to cardioembolic stroke in 2016, who is status post ORIF of the left ankle also noted in 2016. The patient stated that she had been having more swelling of the left ankle and she noted today that her ankle had a wound and you could see hardware through that. The patient stated that she had been by Dr. Tim recently within approximately 2 weeks for a sore on the bottom of her right foot , but he did not mention of any abnormalities of the left ankle at this point - as per patient. Her left ankle has major postsurgical abnormality/deformity and that has been chronic. She has had chronic problems with ambulation and now she is basically nonambulatory. She has had no problems with fevers and she had been feeling at her baseline apart from that, but once again the family noted that the wound was opened today. She did state that she gained approximately 15 pounds in the past 4 to 5 months. PAST MEDICAL HISTORY: 1. History of hypertension. 2. Diabetes. 3. History of atrial fibrillation. 4. History of GI bleed while on Xarelto. The patient also has history of small bowel AVMs. 5. History of cardioembolic stroke in 2016 with residual mild aphasia and right sided weakness 6. History of ORIF of the left ankle in February [address] Tim. 7. Hyperlipidemia. 8. Obesity. 9. Chronic back pain. 10. Hypothyroidism. 11. History of obstructive sleep apnea. 12. History of bilateral total knee replacements and revision of the right knee. 13. History of laminectomy at L3-L4. MEDICATIONS: At [facility] where the patient is resident of include: 1. Coumadin 2 mg daily, decreased due to high INR just 3 days ago. 2. Lidocaine patch 1 patch daily on the left upper back. 3. Milk of magnesia on a p.r.n. basis. 4. Vitamin D3 50,000 units monthly. 5. Toprol XL 25 mg daily. 6. Levothyroxine 125 mcg daily. 7. Insulin lispro 4 units subcutaneously in a.m. 8. Insulin Lantus 26 units daily. 9. Furosemide 20 mg daily. 10. Ferrous sulfate 325 mg daily. 11. Baclofen 5 mg every 4 hours p.r.n. 12. Lipitor 40 mg daily. 13. Oxycodone 5 mg every 8 hours p.r.n. 14. Insulin lispro 6 units b.i.d. with lunch and dinner. 15. Vitamin C 500 mg b.i.d. 16. Amiodarone 200 mg daily. 17. Coumadin 2 mg q.p.m. 18. MiraLAX 17 g daily. 19. Acetaminophen 1000 mg at bedtime. ALLERGIES: Include DILAUDID and XARELTO. The patient had a GI bleed while on XARELTO. FAMILY HISTORY: Positive for father with history of NE and CVA. SOCIAL HISTORY: The patient is a long-term resident of [facility]. Her surrogate decision makers are her brother and sister. She is DNR. REVIEW OF SYSTEMS: Positive for chronic right bottom of the foot wound. Positive for numbness of bilateral feet, which is chronic. The patient also has positive expressive aphasia and chronic right sided weakness due to CVA in 2016 She is unable to understand everything but has problems with verbalizing sometimes. Positive for chronic lower back. Positive for 15-pound weight gain. Positive for constipation. All the remaining 12 systems were reviewed with the patient and the patient's family and were otherwise negative. PHYSICAL EXAMINATION GENERAL: The patient is a pleasant 72-year-old female with a BMI of 51. The patient is in no acute distress. Alert, awake, and oriented x3. Please note that the patient has mixed aphasia. Sometimes, she has difficulties naming objects. VITAL SIGNS: Blood pressure of 187/93, heart rate of 49 and regular, respiratory rate 14, oxygen saturation 96% on room air, temperature of 98.3. HEENT: Head: Atraumatic, normocephalic. Eyes: Pupils are equal, reactive to light and accommodation. Oropharynx clear. Mucosa moist. NECK: Supple. No JVD. No bruits bilaterally. RESPIRATORY: Clear to auscultation bilaterally. CARDIOVASCULAR: Regular rate and rhythm. No murmur. ABDOMEN: Soft, nontender. Bowel sounds are present in all 4 quadrants. EXTREMITIES: There is trace bilateral ankle edema. Pulses +2 bilaterally. There is no clubbing or cyanosis. Left ankle with chronic appearing post surgical deformity. NEURO EVALUATION: The patient has mixed aphasia, but is able to make her needs known. She has slight R-sided facial droop and R-sided weakness more than left. Bilateral lower extremities are deconditioned and weak.. Both of the lower extremities, she is able to raise against gravity; however, a short period of time only. PSYCHIATRIC EVALUATION: The patient oriented x3 with no evidence of anxiety or depression. SKIN: On evaluation of the skin, the patient has ecchymotic spots on first and second toes of bilateral feet that appeared to be posttraumatic. She has an ecchymotic bruise on the medial aspect of the upper left calf that appears to be at least several days old. Overlying the left lateral malleolus, there is what appears to be a slit like open area of approximately 3 cm in length and approximately 0.5 cm in width, which exposed connective tissue likely related to the joint capsule. There is also a small area of opening that shows exposed metalware. Overall, the area is not draining, no erythema, and no evidence of cellulitis. It resembles an area of an old dehisced wound. On the bottom of the right foot laterally, the patient has a small area of what appears to be decubitus ulcer of approximately 1 cm, circular crater- like opening unstageable due to slough on the bottom. The ulcer does not appear to be deep. DIAGNOSTIC STUDIES/LAB DATA: Laboratory data showed white blood cell count of 7.7, hemoglobin is 11.8, hematocrit of 36, and platelets 181. INR was 2.4. Sodium was 140, potassium 4.7, chloride 107, carbon dioxide 26, BUN 50, creatinine 1.81, which shows the patient's chronic kidney disease. Portable chest x-ray, impression: "Small right basilar infiltrate." Please note that the patient has no symptoms of shortness of breath or cough. Ankle x-ray, impression: "Diffuse soft tissue swelling. Medial dislocation of the talus relative to the tibia, which has progressed from the prior study from 09/18/16. Erosion of the medial surgical plate into the dome of the talus similar to the prior exam. Consider an underlying infectious process." ASSESSMENT AND PLAN: 1. In regards to the patient's ankle wound, it has an exposed hardware. At this point, I discussed briefly with Dr. Warren, who stated that the patient likely will need a surgical intervention. The patient's INR is therapeutic and she needs to have her Coumadin reversed with vitamin K. She is going to receive a dose of vitamin K p.o. today. Due to that that she is not toxic appearing and she has no marked leukocytosis and there is no evidence of drainage form the wound, I do not believe that the wound needs to be immediately explored. Dr. Warren will see the patient in consultation in the morning. For the time being, the patient is going to be treated with Ancef intravenously. 2. In regards to the patient's diabetes, the patient is going to be continued on her insulin Lantus as well as insulin sliding scale. 3. The patient has chronic kidney disease stage 3 due to diabetes. It is chronic with creatinine at baseline. 4. In regards to the patient's atrial fibrillation, which is paroxysmal. Currently, the patient is in normal sinus rhythm. She is going to be continued on amiodarone and metoprolol. 5. For her hypertension, the patient is going to be placed on continuation of metoprolol and amiodarone. Hydralazine is going to be utilized as needed for uncontrolled hypertension. I believe the patient has elevated systolic blood pressures due to stress of being in the emergency department. 6. For the patient's DVT prophylaxis, the patient currently is anticoagulated. 7. The patient's code status is do not resuscitate and a MOLST was signed. TIME SPENT: Approximately 75 minutes were spent on admission of this patient, more than half of that time was spent [id number] with the patient during the interview and physical exam. [id number]/[facility] #: [id number] VALE
[2017-10-13] MEDS ORDERED: ceFAZolin 1 GM VIAL(*) 1 GM in NS 0.9% 50 ML* 50 ML IVPB SCH (01:00)
[2017-10-13] MEDS: oxyCODONE TAB* 5 MG TAB PO PRN ×3 (01:58→21:33)
[2017-10-13] MEDS: ceFAZolin 1 GM VIAL(*) 1 GM in NS 0.9% 50 ML* 50 ML IVPB SCH ×2 (05:43→17:10)
[2017-10-13] MEDS: Levothyroxine TAB* 125 MCG TAB PO SCH (05:50)
[2017-10-13] MEDS: Heparin VIAL(*) 5000 UNITS/ML VIAL (FIVE THOUSAND) SUBCUT SCH ×3 (05:51→21:33)
[2017-10-13] MEDS: Insulin LISPRO* 1 UNITS UNIT SUBCUT SCH ×4 (08:11→21:27)
[2017-10-13] MEDS: Ferrous Sulfate TAB* 325 MG PO SCH (08:51)
[2017-10-13] MEDS: Furosemide TAB* 40 MG PO SCH (08:51)
[2017-10-13] MEDS: Amiodarone TAB* 200 MG PO SCH (08:51)
[2017-10-13] MEDS: Polyethylene Glycol 3350* 17 GM PACKET PO SCH (08:51)
[2017-10-13] MEDS: Docusate CAP* 100 MG PO SCH ×2 (08:52→21:33)
[2017-10-13] MEDS ORDERED: Lidocaine 4% TOPICAL* 50 ML TOP.SOLN TOPICAL SCH (09:00)
[2017-10-13 09:39] LABS: INR 1.76 (0.77-1.02)
[2017-10-13] MEDS: Metoprolol Succinate XL TAB* 25 MG PO SCH (09:46)
[2017-10-13] MEDS: Lidocaine PATCH 5%* 1 PATCH TRANSDERM SCH (09:46)
--- NOTE | 2017-10-13 10:17 | PN ---
Subjective Date of Service: 10/13/17 Interval History: Pt feels well. No new complaints Objective Active Medications: Acetaminophen (Tylenol Tab*) 650 mg PO Q4H PRN PRN Reason: FEVER/PAIN Last Admin: 10/13/17 08:50 Dose: 650 mg Al Hydrox/Mg Hydrox/Simethicone (Maalox Plus*) 30 ml PO Q6H PRN PRN Reason: INDIGESTION Amiodarone HCl (Cordarone Tab*) 200 mg PO DAILY [facility] Last Admin: 10/13/17 08:51 Dose: 200 mg Atorvastatin Calcium (Lipitor*) 40 mg PO QPM [facility] Last Admin: 10/12/17 21:54 Dose: 40 mg Baclofen (Lioresal Tab*) 5 mg PO Q8H PRN PRN Reason: SPASMS - MUSCLE Dextrose (D50w Syringe 50 Ml*) 12.5 gm IV PUSH .FOR FS < 60 - SS PRN PRN Reason: FS < 60 Docusate Sodium (Colace Cap*) 100 mg PO BID [facility] Last Admin: 10/13/17 08:52 Dose: 100 mg Ferrous Sulfate (Ferrous Sulfate Tab*) 325 mg PO DAILY [facility] Last Admin: 10/13/17 08:51 Dose: 325 mg Furosemide (Lasix Tab*) 20 mg PO DAILY [facility] Last Admin: 10/13/17 08:51 Dose: 20 mg Heparin Sodium (Porcine) (Heparin Vial(*)) 5,000 units SUBCUT Q8HR [facility] Last Admin: 10/13/17 05:51 Dose: 5,000 units Hydralazine HCl (Apresoline Iv*) 5 mg IV SLOW PU Q6H PRN PRN Reason: BLOOD PRESSURE Cefazolin Sodium 1 gm/ Sodium (Chloride) 50 mls @ 200 mls/hr IVPB 0500,1700 [facility] Last Admin: 10/13/17 05:43 Dose: 200 mls/hr Insulin Glargine (Lantus(*)) 26 units SUBCUT Q24H [facility] Last Admin: 10/12/17 21:54 Dose: 26 unit Insulin Human Lispro (Humalog*) 0 units SUBCUT ACHS [facility] PRN Reason: Protocol Last Admin: 10/13/17 08:11 Dose: Not Given Levothyroxine Sodium (Synthroid Tab*) 125 mcg PO 0600 [facility] Last Admin: 10/13/17 05:50 Dose: 125 mcg Lidocaine (Lidoderm 5% Patch*) 1 patch TRANSDERM DAILY [facility] Last Admin: 10/13/17 09:46 Dose: 1 patch Metoprolol Succinate (Toprol Xl Tab*) 25 mg PO DAILY [facility] Last Admin: 10/13/17 09:46 Dose: 25 mg Oxycodone HCl (Roxycodone Tab*) 5 mg PO Q8H PRN PRN Reason: SEVERE PAIN Last Admin: 10/13/17 01:58 Dose: 5 mg Pharmacy Profile Note (Lidocaine Patch Remove*) 1 note N/A 2100 [facility] Last Admin: 10/12/17 21:55 Dose: 1 note Polyethylene Glycol/Electrolytes (Miralax*) 17 gm PO DAILY [facility] Last Admin: 10/13/17 08:51 Dose: 17 gm Vital Signs - 8 hr 10/13/17 10/13/17 10/13/17 04:07 05:46 07:40 Temperature 97.6 F 97.8 F Pulse Rate 44 48 Respiratory 16 16 18 Rate Blood Pressure 122/44 138/67 (mmHg) O2 Sat by Pulse 98 98 Oximetry Oxygen Devices in Use Now: None Appearance: 72 yo f in nAD, aAOx3, notable expressive aphasia Eyes: No Scleral Icterus, PERRLA Ears/Nose/Mouth/Throat: NL Teeth, Lips, Gums, Mucous Membranes Moist Neck: NL Appearance and Movements; NL JVP, Trachea Midline Respiratory: Symmetrical Chest Expansion and Respiratory Effort, Clear to Auscultation Cardiovascular: NL Sounds; No Murmurs; No JVD, RRR Abdominal: NL Sounds; No Tenderness; No Distention, No Hepatosplenomegaly Lymphatic: No Cervical Adenopathy Extremities: No Clubbing, Cyanosis, - - trace b/l pedal edema Skin: No Nodules or Sclerosis, - - left lateral malleolus wound at 3-4 cm in lenght with visible metalware on bottom of wound. R lateral bottom foot-1 cm crater like shallow decubitus -unstageable due to slugh at bottom of wound Neurological: Alert and Oriented x 3, - - genralized weakness b/l LE's, mixed aphsia, mile r facila droop-chronic Result Diagrams: 10/12/17 14:39 10/12/17 14:39 Additional Lab and Data: Lab Results 05/10/2510/12/17 10/12/17 Range/Units 14:39 14:39 14:39 WBC 7.7 (3.5-10.8) 10^3/ul RBC 3.86 L (4.0-5.4) 10^6/ul Hgb 11.8 L (12.0-16.0) g/dl Hct 36 (35-47) % MCV 93 (80-97) fL MCH 30 (27-31) pg MCHC 33 (31-36) g/dl RDW 15 (10.5-15) % Plt Count 181 (150-450) 10^3/ul MPV 8.5 (7.4-10.4) um3 Neut % (Auto) 68.0 (38-83) % Lymph % (Auto) 17.5 L (25-47) % [place] % (Auto) 7.6 H (0-7) % Eos % (Auto) 5.9 (0-6) % Baso % (Auto) 1.0 (0-2) % Absolute Neuts (auto) 5.2 (1.5-7.7) 10^3/ul Absolute Lymphs (auto) 1.3 (1.0-4.8) 10^3/ul Absolute Monos (auto) 0.6 (0-0.8) 10^3/ul Absolute Eos (auto) 0.5 (0-0.6) 10^3/ul Absolute Basos (auto) 0.1 (0-0.2) 10^3/ul Absolute Nucleated RBC 0 10^3/ul Nucleated RBC % 0.1 Sodium 140 (139-145) mmol/L Potassium 4.7 (3.5-5.0) mmol/L Chloride 107 (101-111) mmol/L Carbon Dioxide 26 (22-32) mmol/L Anion Gap 7 (2-11) mmol/L BUN 50 H (6-24) mg/dL Creatinine 1.81 H (0.51-0.95) mg/dL Est GFR ( Amer) 35.1 (>60) Est GFR (Non-Af Amer) 27.3 (>60) BUN/Creatinine Ratio 27.6 H (8-20) Glucose 143 H (70-100) mg/dL Lactic Acid 0.8 (0.5-2.0) mmol/L Calcium 9.2 (8.6-10.3) mg/dL Total Bilirubin 0.30 (0.2-1.0) mg/dL AST 11 L (13-39) U/L ALT 10 (7-52) U/L Alkaline Phosphatase 63 (34-104) U/L C-Reactive Protein 3.75 (< 5.00) mg/L Total Protein 7.1 (6.4-8.9) g/dL Albumin 3.5 (3.2-5.2) g/dL Globulin 3.6 (2-4) g/dL Albumin/Globulin Ratio 1.0 (1-3) Assess/Plan/Problems-Billing Assessment: 72 yo F with h/o cardioembolic CVA in 2015 and subsequent L ankle fx (s/p ORIF by Dr. Tim in 2015), DM ,obesity, PAF, ambulatory dysfucntion, chronic R sided weakness and expressive aphasia presents with wound noted on left ankle - Patient Problems (1) Unspecified open wound, left ankle, subsequent encounter Comment: Pt had ORIF on left ankle in 01/2016. 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 Her family noted and opened wound on 10/12/17 and brought pot [place] [facility] [place] N/o c/o pain /fevers or discharge from wound. CRP 3 will cont Ancef. Plan for OR in AM with Dr. Tim (2) CKD stage 3 due to type 2 diabetes mellitus Comment: creat at baseline (3) CVA (cerebral vascular accident) Comment: - L parietal CVA with expressive/receptive aphasia in 01/2016, neuro deficits at baseline. (4) Diabetes Comment: Continue Lantus and ISS (5) Hypothyroidism Comment: Continue home synthroid (6) DVT prophylaxis Comment: INR 1.7 today. will d/c with ortho is further tx with vit K needed. will start SCDs
[2017-10-13] MEDS ORDERED: Phytonadione Oral Solution* 5 MG/25 ML UDC PO ONE (10:43)
--- NOTE | 2017-10-13 16:01 | CONS ---
INPATIENT ORTHOPEDIC CONSULTATION NOTE: DATE OF CONSULT: 10/13/17. ATTENDING SURGEON: Mary Warren MD. Thank you for this orthopedic consultation. CHIEF COMPLAINT: Left ankle wound. HISTORY OF PRESENT ILLNESS: Ms. Abernathy is a 72-year-old female with multiple medical comorbidities. She presented to the emergency room in the evening on with a new open wound along the left lateral ankle. The patient is seen by Dr. Tim over the last few years for the ankle fracture that went on to heal poorly due to osteoporosis. The patient has been mainly in a wheelchair. She denies having any open wounds along the left ankle. Yesterday, it was noted by the patient and her daughter that she had a 3-cm open wound with visible hardware. She called our answering service and we asked her to come into the ED. The patient reports some dense neuropathy and decreased sensation in that ankle. She has no significant pain. PAST MEDICAL HISTORY: Hypertension, diabetes, atrial fibrillation, GI bleed on Xarelto, small bowel AVMs, cardioembolic stroke in 2016 with mild aphasia and right- sided weakness. Left ankle fracture with ORIF [place] [address] Tim. Hyperlipidemia, morbid obesity, chronic back pain, hypothyroidism, obstructive sleep apnea, osteoarthritis, and lower back pain. PAST SURGICAL HISTORY: ORIF of the left ankle in 2016, Dr. Tim. Bilateral knee replacements, history of lumbar laminectomy. MEDICATIONS: 1. Coumadin 2 mg p.o. daily. 2. Lidocaine patch to the left upper back daily. 3. Milk of mag p.r.n. 4. Vitamin D3 of 50,000 units q. monthly. 5. Toprol-XL 25 mg p.o. daily. 6. Levothyroxine 125 mcg p.o. daily. 7. Insulin lispro 4 units in the a.m. 8. Lantus 26 units daily. 9. Furosemide 20 mg p.o. daily. 10. Baclofen 5 mg q.4 hours p.r.n. 11. Lipitor 40 mg p.o. daily. 12. Oxycodone 5 mg p.o. q.8 hours p.r.n. 13. Insulin lispro 6 units b.i.d. with lunch and dinner. 14. Amiodarone 200 mg p.o. daily. ALLERGIES: DILAUDID, XARELTO. She had a GI bleed while on XARELTO. FAMILY HISTORY: Paternal ID and CVA. SOCIAL HISTORY: The patient is a resident of [facility]. She has a brother and sister, who are her surrogate decision makers. She is DNR. She has not ambulated since the ankle fracture. She is largely in a wheelchair. No tobacco, alcohol, or recreational drug use. REVIEW OF SYSTEMS: A 14 systems reviewed with the patient. Positive for chronic wound on her right foot plantar aspect, positive for the left open wound. Positive for dense bilateral neuropathy. Positive for right-sided weakness. Positive for expressive aphasia, chronic low back pain, weight gain, constipation. Otherwise, the patient reports review of systems is negative or not relevant. PHYSICAL EXAM: Temperature 97.8, heart rate 44, blood pressure 156/61. General : The patient is a morbidly obese female, lying in bed. She is alert and oriented x3. Pleasant mood, appropriate affect. Some expressive aphasia is noted at times. Left lower extremity, she has obvious deformity at the ankle, which is chronic with healed incisions, laterally she has a 3 x 2 cm area with some necrotic fat. There is no significant surrounding cellulitis. She has dense neuropathy and cannot feel sensation of light touch around this. There is minimal drainage. When the necrotic fat is cleared away, there is a visible screw head. She has a 2+ palpable DP pulse. She does not have active dorsiflexion, plantar flexion at the ankle. DIAGNOSTIC STUDIES/LAB DATA: Laboratory studies from 10/12/17 show white blood cell 7.7, hematocrit 36, platelets 181. INR was 2.4; today on 10/13/17 is 1.76. Sodium 140, potassium 4.7, chloride 107, BUN and creatinine 50 and 1.81. CRP 3.75. Radiographs: Multiple views of the patient's left ankle are reviewed. There is hardware visible from prior ankle ORIF. There is severe deformation of this ankle. ASSESSMENT AND PLAN: Ms. Abernathy is a 72-year-old female with a new open wound on her left lateral ankle. She has dense neuropathy. This does not appear to be infected at this point. The patient is a longstanding patient of Dr. Tim, so I did give him a call. He liked her to be n.p.o. after midnight and he will take her to the operating room for a formal debridement, possible closure, possible wound VAC placement tomorrow on 10/14/17. I discussed this option with the patient and she is in favor of it. She will be optimized for surgery. Of course, Coumadin will be held and she will likely get a small dose of vitamin K as well. Until then she should have p.r.n. analgesia. She is currently on IV antibiotics. She will be on bedrest. [id number]/[facility] #: [id number] [facility] CENTERKrish
[2017-10-13] MEDS: Atorvastatin* 40 MG TAB PO SCH (17:10)
[2017-10-13] MEDS: Insulin GLARGINE(*) 1 UNITS UNIT SUBCUT SCH (18:17)
[2017-10-13] MEDS: Lidocaine Patch REMOVE* 1 NOTE MISC SCH (21:33)
[2017-10-14] MEDS: Levothyroxine TAB* 125 MCG TAB PO SCH (05:35)
[2017-10-14] MEDS: ceFAZolin 1 GM VIAL(*) 1 GM in NS 0.9% 50 ML* 50 ML IVPB SCH ×2 (05:35→18:43)
[2017-10-14] MEDS: oxyCODONE TAB* 5 MG TAB PO PRN ×2 (05:35→21:49)
[2017-10-14 05:37] LABS: ABS Basophils 0.1 10^3/ul (0-0.2); ABS Eosinophils 0.5 10^3/ul (0-0.6); ABS Lymphocytes 1.5 10^3/ul (1.0-4.8); ABS Monocytes 0.6 10^3/ul (0-0.8); ABS Neutrophils 4.3 10^3/ul (1.5-7.7); ABS Nucleated RBC 0 10^3/ul; Eosinophil % 7.7 % (0-6); Hematocrit 33 % (35-47); Hemoglobin 10.9 g/dl (12.0-16.0); Lymphocyte % 21.3 % (25-47); Mean Corpuscular HGB Conc 33 g/dl (31-36); Mean Corpuscular Hemoglobin 31 pg (27-31); Mean Corpuscular Volume 92 fL (80-97); Mean Platelet Volume 8.4 um3 (7.4-10.4); Nucleated Red Blood Cells % 0; Platelet Count 165 10^3/ul (150-450); Red Blood Count 3.56 10^6/ul (4.0-5.4); Red Cell Distribution Width 14 % (10.5-15)
[2017-10-14 05:44] LABS: INR 1.23 (0.77-1.02)
[2017-10-14 06:06] LABS: EGFR Non-African American 30.6 (>60)
[2017-10-14] MEDS: Insulin LISPRO* 1 UNITS UNIT SUBCUT SCH ×4 (08:29→22:00)
--- NOTE | 2017-10-14 09:00 | PN ---
Subjective Date of Service: 10/14/17 Interval History: pt feels well, denies pain, SOB. NPO for surgery Objective Active Medications: Acetaminophen (Tylenol Tab*) 650 mg PO Q4H PRN PRN Reason: FEVER/PAIN Last Admin: 10/13/17 08:50 Dose: 650 mg Al Hydrox/Mg Hydrox/Simethicone (Maalox Plus*) 30 ml PO Q6H PRN PRN Reason: INDIGESTION Amiodarone HCl (Cordarone Tab*) 200 mg PO DAILY [facility] Last Admin: 10/13/17 08:51 Dose: 200 mg Atorvastatin Calcium (Lipitor*) 40 mg PO QPM [facility] Last Admin: 10/13/17 17:10 Dose: 40 mg Baclofen (Lioresal Tab*) 5 mg PO Q8H PRN PRN Reason: SPASMS - MUSCLE Last Admin: 10/13/17 21:32 Dose: 5 mg Dextrose (D50w Syringe 50 Ml*) 12.5 gm IV PUSH .FOR FS < 60 - SS PRN PRN Reason: FS < 60 Docusate Sodium (Colace Cap*) 100 mg PO BID [facility] Last Admin: 10/13/17 21:33 Dose: 100 mg Ferrous Sulfate (Ferrous Sulfate Tab*) 325 mg PO DAILY [facility] Last Admin: 10/13/17 08:51 Dose: 325 mg Furosemide (Lasix Tab*) 20 mg PO DAILY [facility] Last Admin: 10/13/17 08:51 Dose: 20 mg Hydralazine HCl (Apresoline Iv*) 5 mg IV SLOW PU Q6H PRN PRN Reason: BLOOD PRESSURE Cefazolin Sodium 1 gm/ Sodium (Chloride) 50 mls @ 200 mls/hr IVPB 0500,1700 [facility] Last Admin: 10/14/17 05:35 Dose: 200 mls/hr Lactated Ringer's (Lactated Ringers 1000 Ml Bag*) 1,000 mls @ 125 mls/hr IV PER RATE [facility] Insulin Glargine (Lantus(*)) 16 units SUBCUT Q24H [facility] Last Admin: 10/13/17 18:17 Dose: 16 unit Insulin Human Lispro (Humalog*) 0 units SUBCUT ACHS [facility] PRN Reason: Protocol Last Admin: 10/14/17 08:29 Dose: Not Given Levothyroxine Sodium (Synthroid Tab*) 125 mcg PO 0600 [facility] Last Admin: 10/14/17 05:35 Dose: 125 mcg Lidocaine (Lidoderm 5% Patch*) 1 patch TRANSDERM DAILY [facility] Last Admin: 10/13/17 09:46 Dose: 1 patch Metoprolol Succinate (Toprol Xl Tab*) 25 mg PO DAILY [facility] Last Admin: 10/13/17 09:46 Dose: 25 mg Oxycodone HCl (Roxycodone Tab*) 5 mg PO Q8H PRN PRN Reason: SEVERE PAIN Last Admin: 10/14/17 05:35 Dose: 5 mg Pharmacy Profile Note (Lidocaine Patch Remove*) 1 note N/A 2100 [facility] Last Admin: 10/13/17 21:33 Dose: 1 note Polyethylene Glycol/Electrolytes (Miralax*) 17 gm PO DAILY [facility] Last Admin: 10/13/17 08:51 Dose: 17 gm Vital Signs - 8 hr 10/14/17 10/14/17 10/14/17 03:47 05:35 07:43 Temperature 97.5 F 97.9 F Pulse Rate 48 48 Respiratory 16 18 16 Rate Blood Pressure 150/42 148/48 (mmHg) O2 Sat by Pulse 93 96 Oximetry Oxygen Devices in Use Now: None Appearance: 72 yo F in nAD, AAOx3 Eyes: No Scleral Icterus, PERRLA Ears/Nose/Mouth/Throat: NL Teeth, Lips, Gums, Mucous Membranes Moist Neck: NL Appearance and Movements; NL JVP, Trachea Midline Respiratory: Symmetrical Chest Expansion and Respiratory Effort, - - faint bibasiliar crackles Cardiovascular: NL Sounds; No Murmurs; No JVD, RRR Abdominal: NL Sounds; No Tenderness; No Distention Lymphatic: No Cervical Adenopathy Extremities: No Clubbing, Cyanosis, - - left foot edema +1-pitting, R ankle trase edema Skin: No Nodules or Sclerosis, - - R lateral foot, small 1 cm pressure ulcer- unstegeable. L lateral malleolus open wound at 3 cm with clean cut edges, slit like openinf up to 1 cm in width, visible joint capsule and metalware Neurological: Alert and Oriented x 3, - - r facial droop, b/l leg weakness- chronic, mixed aphasia-chronic Result Diagrams: 10/14/17 05:20 10/14/17 05:20 Additional Lab and Data: Lab Results 10/12/17 10/12/17 10/12/17 Range/Units 14:39 14:39 14:39 WBC 7.7 (3.5-10.8) 10^3/ul RBC 3.86 L (4.0-5.4) 10^6/ul Hgb 11.8 L (12.0-16.0) g/dl Hct 36 (35-47) % MCV 93 (80-97) fL MCH 30 (27-31) pg MCHC 33 (31-36) g/dl RDW 15 (10.5-15) % Plt Count 181 (150-450) 10^3/ul MPV 8.5 (7.4-10.4) um3 Neut % (Auto) 68.0 (38-83) % Lymph % (Auto) 17.5 L (25-47) % [place] % (Auto) 7.6 H (0-7) % Eos % (Auto) 5.9 (0-6) % Baso % (Auto) 1.0 (0-2) % Absolute Neuts (auto) 5.2 (1.5-7.7) 10^3/ul Absolute Lymphs (auto) 1.3 (1.0-4.8) 10^3/ul Absolute Monos (auto) 0.6 (0-0.8) 10^3/ul Absolute Eos (auto) 0.5 (0-0.6) 10^3/ul Absolute Basos (auto) 0.1 (0-0.2) 10^3/ul Absolute Nucleated RBC 0 10^3/ul Nucleated RBC % 0.1 Sodium 140 (139-145) mmol/L Potassium 4.7 (3.5-5.0) mmol/L Chloride 107 (101-111) mmol/L Carbon Dioxide 26 (22-32) mmol/L Anion Gap 7 (2-11) mmol/L BUN 50 H (6-24) mg/dL Creatinine 1.81 H (0.51-0.95) mg/dL Est GFR ( Amer) 35.1 (>60) Est GFR (Non-Af Amer) 27.3 (>60) BUN/Creatinine Ratio 27.6 H (8-20) Glucose 143 H (70-100) mg/dL Lactic Acid 0.8 (0.5-2.0) mmol/L Calcium 9.2 (8.6-10.3) mg/dL Total Bilirubin 0.30 (0.2-1.0) mg/dL AST 11 L (13-39) U/L ALT 10 (7-52) U/L Alkaline Phosphatase 63 (34-104) U/L C-Reactive Protein 3.75 (< 5.00) mg/L Total Protein 7.1 (6.4-8.9) g/dL Albumin 3.5 (3.2-5.2) g/dL Globulin 3.6 (2-4) g/dL Albumin/Globulin Ratio 1.0 (1-3) Assess/Plan/Problems-Billing Assessment: 72 yo F with h/o cardioembolic CVA in 2015 and subsequent L ankle fx (s/p ORIF by Dr. Tim in 2015), DM ,obesity, PAF, ambulatory dysfucntion, chronic R sided weakness and expressive aphasia presents with wound noted on left ankle - Patient Problems (1) Unspecified open wound, left ankle, subsequent encounter Comment: Pt had ORIF on left ankle in 01/2016. 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 Her family noted an opened wound on 10/12/17 and brought pot to [facility] [place]. N/o c/o pain /fevers or discharge from wound. CRP 3 will cont Ancef. Plan for OR today with Dr. Tim (2) CKD stage 3 due to type 2 diabetes mellitus Comment: creat at baseline (3) CVA (cerebral vascular accident) Comment: - L parietal CVA with expressive/receptive aphasia in 01/2016, neuro deficits at baseline. (4) Diabetes Comment: Continue Lantus and ISS (5) Hypothyroidism Comment: Continue home synthroid (6) Afib Comment: - Paroxysmal afib - currently sounds regular on physical examination, but with h/o CVA, would prefer to resume anticoagulation with close monitoring of her INR as soon as possible - Continue Amiodarone. (7) DVT prophylaxis Comment: INR 1.23 today. cont SCDs
[2017-10-14] MEDS: Ferrous Sulfate TAB* 325 MG PO SCH (09:25)
[2017-10-14] MEDS: Polyethylene Glycol 3350* 17 GM PACKET PO SCH (09:25)
[2017-10-14] MEDS: Docusate CAP* 100 MG PO SCH ×2 (09:25→19:54)
[2017-10-14] MEDS: Furosemide TAB* 40 MG PO SCH (10:19)
[2017-10-14] MEDS: Metoprolol Succinate XL TAB* 25 MG PO SCH (10:20)
[2017-10-14] MEDS: Amiodarone TAB* 200 MG PO SCH (10:20)
[2017-10-14] MEDS: Lidocaine PATCH 5%* 1 PATCH TRANSDERM SCH (10:21)
--- NOTE | 2017-10-14 12:25 | PN ---
Progress Note - Progress Note Date of Service: 10/14/17 SOAP: Subjective: 72 y/o female with dehiscence of left ankle ORIF in 01/2016. Patient has been following Dr. Foster and feels very comfortably with his care, questions about timing of surgery and dressing care post-op. VSS afebrile. Objective: General- Resting in bed comfortably, NAD, AO MSK- DResing intact over L ankle, no drainage noted. Vital Signs Temp 97.9 F 10/14/17 11:26 Pulse 48 10/14/17 11:26 Resp 16 10/14/17 11:26 BP 159/51 10/14/17 11:26 Pulse Ox 96 10/14/17 11:26 Intake & Output 10/13/17 10/14/17 10/14/17 18:59 06:59 18:59 Intake Total 420 900 Output Total 950 Balance 420 -50 Weight 137.438 kg Intake: IVPB 0 ABX - CEFAZOLIN 0 Oral 420 900 Output: Urine 950 Other: Estimated Void Medium Assessment: 72 y/o female with dehiscence of left ankle ORIF in 01/2016 Plan: - OR today with Dr. Foster - DVT prophylaxis post-op - IV cefazolin - Currently NPO Acetaminophen (Tylenol Tab*) 650 mg PO Q4H PRN PRN Reason: FEVER/PAIN Last Admin: 10/13/17 08:50 Dose: 650 mg Al Hydrox/Mg Hydrox/Simethicone (Maalox Plus*) 30 ml PO Q6H PRN PRN Reason: INDIGESTION Amiodarone HCl (Cordarone Tab*) 200 mg PO DAILY [facility] Last Admin: 10/14/17 10:20 Dose: 200 mg Atorvastatin Calcium (Lipitor*) 40 mg PO QPM [facility] Last Admin: 10/13/17 17:10 Dose: 40 mg Baclofen (Lioresal Tab*) 5 mg PO Q8H PRN PRN Reason: SPASMS - MUSCLE Last Admin: 10/13/17 21:32 Dose: 5 mg Dextrose (D50w Syringe 50 Ml*) 12.5 gm IV PUSH .FOR FS < 60 - SS PRN PRN Reason: FS < 60 Docusate Sodium (Colace Cap*) 100 mg PO BID [facility] Last Admin: 10/14/17 09:25 Dose: Not Given Ferrous Sulfate (Ferrous Sulfate Tab*) 325 mg PO DAILY [facility] Last Admin: 10/14/17 09:25 Dose: Not Given Furosemide (Lasix Tab*) 20 mg PO DAILY [facility] Last Admin: 10/14/17 10:19 Dose: 20 mg Hydralazine HCl (Apresoline Iv*) 5 mg IV SLOW PU Q6H PRN PRN Reason: BLOOD PRESSURE Cefazolin Sodium 1 gm/ Sodium (Chloride) 50 mls @ 200 mls/hr IVPB 0500,1700 [facility] Last Admin: 10/14/17 05:35 Dose: 200 mls/hr Lactated Ringer's (Lactated Ringers 1000 Ml Bag*) 1,000 mls @ 125 mls/hr IV PER RATE [facility] Insulin Glargine (Lantus(*)) 16 units SUBCUT Q24H [facility] Last Admin: 10/13/17 18:17 Dose: 16 unit Insulin Human Lispro (Humalog*) 0 units SUBCUT ACHS [facility] PRN Reason: Protocol Last Admin: 10/14/17 12:11 Dose: Not Given Levothyroxine Sodium (Synthroid Tab*) 125 mcg PO 0600 [facility] Last Admin: 10/14/17 05:35 Dose: 125 mcg Lidocaine (Lidoderm 5% Patch*) 1 patch TRANSDERM DAILY [facility] Last Admin: 10/14/17 10:21 Dose: 1 patch Metoprolol Succinate (Toprol Xl Tab*) 25 mg PO DAILY [facility] Last Admin: 10/14/17 10:20 Dose: 25 mg Oxycodone HCl (Roxycodone Tab*) 5 mg PO Q8H PRN PRN Reason: SEVERE PAIN Last Admin: 10/14/17 05:35 Dose: 5 mg Pharmacy Profile Note (Lidocaine Patch Remove*) 1 note N/A 2100 [facility] Last Admin: 10/13/17 21:33 Dose: 1 note Polyethylene Glycol/Electrolytes (Miralax*) 17 gm PO DAILY [facility] Last Admin: 10/14/17 09:25 Dose: Not Given
[2017-10-14] MEDS ORDERED: fentaNYL* 50 MCG/ML 2 ML VIAL (100 MCG VIAL) ONE (12:56)
[2017-10-14] MEDS ORDERED: Etomidate* 2 MG/ML 10 ML VIAL ONE (12:58)
[2017-10-14] MEDS ORDERED: Propofol* 10 MG/ML 20 ML BTL IV PUSH ONE (12:58)
[2017-10-14] MEDS ORDERED: Lidocaine 2% PF * 5 ML VIAL ONE (12:59)
[2017-10-14] MEDS ORDERED: Morphine INJ* 2 MG/ML 1 ML CARPUJECT IV PRN (13:41)
[2017-10-14] MEDS ORDERED: oxyCODONE TAB* 5 MG TAB PO PRN ×2 (13:41)
[2017-10-14] MEDS ORDERED: Scopolamine 1.5 mg* PATCH TRANSDERM PRN (13:41)
[2017-10-14] MEDS ORDERED: Naloxone* 0.4 MG/ML 1 ML VIAL IV PRN (13:41)
[2017-10-14] MEDS ORDERED: Acetaminophen IV 1GM/100ML * 1,000 MG/100 ML VIAL IVPB ONE (13:41)
[2017-10-14] MEDS ORDERED: fentaNYL* 50 MCG/ML 2 ML VIAL (100 MCG VIAL) IV PRN (13:41)
[2017-10-14] MEDS ORDERED: Ondansetron INJ* 2 MG/ML VIAL IV PRN (13:41)
[2017-10-14] MEDS ORDERED: Bupivacaine 0.5%* 50 ML VIAL ONE (14:29)
[2017-10-14] MEDS ORDERED: Midazolam* 1 MG/ML 2 ML VIAL (2 MG) ONE (15:05)
[2017-10-14] MEDS: Atorvastatin* 40 MG TAB PO SCH (18:37)
[2017-10-14] MEDS: Insulin GLARGINE(*) 1 UNITS UNIT SUBCUT SCH (18:44)
[2017-10-14] MEDS: Lidocaine Patch REMOVE* 1 NOTE MISC SCH (22:02)
--- NOTE | 2017-10-15 03:45 | OP ---
DATE OF OPERATION: 10/14/17 - ROOM #[id number] DATE OF : 41 SURGEON: Rio Tim MD GLOBAL CATEGORY MANAGER: Jennifer Ordaz PA-C PRE-OP DIAGNOSIS: Wound breakdown, left lateral hindfoot with exposure of fibular plate. POST-OP DIAGNOSIS: Wound breakdown, left lateral hindfoot with exposure of fibular plate. OPERATIVE PROCEDURE: Removal of plate; irrigation, debridement and wound closure. DESCRIPTION OF PROCEDURE: The patient was taken to the operating room where local anesthetic was instilled around the previous fibular incision. We opened up longitudinally over the fibula plate and the plate was removed with use of the small fragment screwdriver. We scraped the bed of the plate with a large curette. We used sharp dissection distally to ellipticize the distal wound leaving fresh skin edges and fresh subcutaneous tissue. Cultures were sent. There was no purulence noted. We used a pulsatile lavage to thoroughly clean the bed. There was fresh bleeding throughout. Closure of 2-0 Vicryl and Prolene for the skin was then performed as well as a plaster splint. [id number]/[facility] #: [id number] MTDD
[2017-10-15] MEDS: ceFAZolin 1 GM VIAL(*) 1 GM in NS 0.9% 50 ML* 50 ML IVPB SCH (05:38)
[2017-10-15] MEDS: Levothyroxine TAB* 125 MCG TAB PO SCH (05:38)
[2017-10-15 05:50] LABS: INR 1.02 (0.77-1.02)
[2017-10-15 05:52] LABS: ABS Basophils 0 10^3/ul (0-0.2); ABS Eosinophils 0.4 10^3/ul (0-0.6); ABS Monocytes 0.7 10^3/ul (0-0.8); ABS Neutrophils 5.2 10^3/ul (1.5-7.7); ABS Nucleated RBC 0 10^3/ul; Eosinophil % 5.2 % (0-6); Hematocrit 35 % (35-47); Hemoglobin 11.7 g/dl (12.0-16.0); Lymphocyte % 14.1 % (25-47); Mean Corpuscular HGB Conc 33 g/dl (31-36); Mean Corpuscular Hemoglobin 31 pg (27-31); Mean Corpuscular Volume 94 fL (80-97); Mean Platelet Volume 8.7 um3 (7.4-10.4); Nucleated Red Blood Cells % 0; Platelet Count 144 10^3/ul (150-450); Red Blood Count 3.77 10^6/ul (4.0-5.4); Red Cell Distribution Width 14 % (10.5-15); White Blood Count 7.3 10^3/ul (3.5-10.8)
[2017-10-15 06:00] LABS: EGFR Non-African American 34.2 (>60)
[2017-10-15] MEDS: Insulin LISPRO* 1 UNITS UNIT SUBCUT SCH (08:15)
[2017-10-15] MEDS ORDERED: Furosemide TAB* 20 MG PO SCH (09:00)
[2017-10-15] MEDS: Docusate CAP* 100 MG PO SCH (09:41)
[2017-10-15] MEDS: Ferrous Sulfate TAB* 325 MG PO SCH (09:41)
[2017-10-15] MEDS: Metoprolol Succinate XL TAB* 25 MG PO SCH (09:41)
[2017-10-15] MEDS: Amiodarone TAB* 200 MG PO SCH (09:42)
[2017-10-15] MEDS: Polyethylene Glycol 3350* 17 GM PACKET PO SCH (09:44)
[2017-10-15] MEDS: Lidocaine PATCH 5%* 1 PATCH TRANSDERM SCH (09:47)
[2017-10-15 11:17] VITALS: BP 130/48
--- NOTE | 2017-10-15 11:18 | DS ---
CC: Dr. Clarke; Dr. Canales; Dr. Tim; [facility] * DISCHARGE SUMMARY: DATE OF ADMISSION: 10/12/17 DATE OF DISCHARGE: 10/15/17 PRIMARY CARE PROVIDER: Dr. Canales from [facility]. DISCHARGE DIAGNOSIS: Wound breakdown in the left lateral hindfoot with exposure of fibular plate, status post removal of plate, irrigation, debridement , and wound closure, performed by Dr. Tim on 10/14/17. SECONDARY DIAGNOSES: 1. History of morbid obesity with BMI of 52. 2. Obstructive sleep apnea. 3. Hypertension. 4. Diabetes. 5. History of paroxysmal atrial fibrillation. 6. History of gastrointestinal bleed while on Xarelto. Patient also has history of small bowel arteriovenous malformations. 7. History of cardioembolic stroke in 2016 with residual mild aphasia and right - sided weakness. 8. History of open reduction and internal fixation of the left ankle in February 2016. 9. Hyperlipidemia. 10. Chronic back pain. 11. Hypothyroidism. 12. 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 13. Laminectomy at L3-L4 levels. MEDICATIONS AT DISCHARGE: Unchanged from prior and include: 1. Acetaminophen on p.r.n. basis. 2. Amiodarone 200 mg daily. 3. Vitamin C 500 mg b.i.d. 4. Lipitor 40 mg q.p.m. 5. Baclofen 5 mg every 8 hours p.r.n. 6. Vitamin 50,000 units monthly. 7. Ferrous sulfate 325 mg daily. 8. Lasix 20 mg daily. 9. Lantus insulin 26 units subcutaneously q.24 hours. 10. Insulin Humalog 6 units b.i.d. with meals and 4 units q.a.m. 11. Synthroid 125 mcg daily. 12. Lidocaine patch, apply 1 patch to back for pain, change every 72 hours. 13. Milk of magnesia 30 mL every 6 hours p.r.n. 14. Toprol-XL 25 mg daily. 15. Oxycodone 5 mg every 8 hours p.r.n.. 16. MiraLAX 17 g daily. 17. Coumadin 2 mg daily. Patient's new medication is Keflex 250 mg every 8 hours for a total of 10 days and further on as instructed by Dr. Tim. LABORATORY DATA AND STUDIES PERFORMED DURING THE HOSPITAL STAY: Included, on , white blood cell count of 7.3, hemoglobin 11.7, hematocrit 35, and platelets of 144. INR was 1.02 on 10/15/17. Sodium was 138, potassium 4.8, chloride 107, carbon dioxide 23, BUN 36, creatinine 1.49. Microbiology studies showed skin and soft tissue cultures were staph aureus negative and MRSA negative, and showed +2 gram positive cocci in clusters resembling Staph and possible +1 gram positive bacilli. Blood cultures were negative at the time of discharge. Pathology from the hardware is pending at the time of dictation. Ankle x-ray obtained on 10/12/17, impression: "Diffuse soft tissue swelling. Medial dislocation of the talus relative to the tibia which has progressed from the previous study from September 2016. Erosion of the medial surgical plate into the dome of talus similar to the prior exam. Consider underlying infectious process." Patient's portable chest x-ray obtained on admission, impression: "Small right basilar infiltrate." HOSPITALIZATION COURSE: Joselin Abernathy is a 72-year-old obese female with history of expressive aphasia due to previous CVA, as well as right-sided weakness and bilateral lower extremity weakness. Patient lives at [facility] and is basically nonambulatory. For the past several months, she has been having problems with the left ankle. She got immobile and gained weight. On the day of admission, patient's family noted that the patient has a slit-like wound noted overlying the left lateral malleolus where patient previously had hardware placed by Dr. Tim in 2016. Patient was admitted to the hospital. Her CRP was low. Patient was not toxic appearing. The wound had no drainage and the patient had been afebrile, with no leukocytosis. Nevertheless, she was placed on Ancef intravenously during her hospital stay. On Saturday, on 10/14/17 , Dr. Tim saw the patient in consultation and performed removal of the fibular plate, with irrigation of the wound, debridement, and wound closure. Patient's wound was casted and patient is to be nonweightbearing on the left leg until further directions, as per Dr. Tim. Due to MRSA negative but gram positive cocci noted on wound culture, patient is going to be placed on p.o. Keflex for the next 10 days that may need to be extended further depending on Dr. Tim's recommendation. Dr. Tim wishes for the patient to be seen at his office for followup orthopedic evaluation next week. Please note that for her paroxysmal atrial fibrillation, patient was on Coumadin , which was reversed for her surgery. Coumadin is going to be restarted on the day of discharge. Next INR should be performed in a couple of days and followed as per patient's primary care provider. PHYSICAL EXAMINATION AT THE TIME OF DISCHARGE: Blood pressure of 130/47, heart rate of 49 and regular, respiratory rate 16, oxygen saturation 97% on room air, temperature of 98.4. General: The patient is a very pleasant 72-year-old female, whose BMI is 52. Patient is in no acute distress. Alert, awake, and oriented x3. HEENT: Head is atraumatic, normocephalic. Eyes: Pupils are equal , reactive to light and accommodation. Oropharynx clear. Mucosa moist. Neck: Supple. No JVD. No bruits bilaterally. Cardiovascular: Regular rate and rhythm. No murmur. Respiratory: Faint bibasilar crackles. Abdomen: Protuberant, soft, nontender. Bowel sounds are present in all 4 quadrants. Extremities: The left lower extremity is in a cast. There are 2 ecchymotic areas on the tips of the first and second toe, likely posttraumatic. They were there at admission. Patient also has a small ecchymotic area on the right medial calf that was there at admission also. Patient also has a small area of ulceration on the right lateral bottom of her foot, approximately 1 cm in diameter, crater like, with bottom covered with slough and unstageable. Please note that patient was noted to have possibility of small basilar infiltrate on her chest x-ray. She had no symptoms of infection and I suspect it is atelectasis. That was not treated. Patient is nonweightbearing on the left leg. Patient is recommended to have DuoDERM wound care to the right bottom foot ulcer with changes on a daily basis. Please note that this is a short summary of the patient's hospitalization. Please refer to further medical records for details. TIME SPENT: Approximately 45 minutes were spent on patient's discharge. [id number]/[facility] #: [id number] MTDD
[2017-10-17] MEDS ORDERED: Scopolamine PATCH Remove* 1 NOTE MISC PATCH OFF ONE (13:42)
== END 2017-10-15 11:20 | DRG 464 ==
LOC: ED 13:22 → SSU 17:50
PROVIDERS: ADMIT Internal Medicine; ATTEND Internal Medicine
PROC: 0SPG04Z Removal of Internal Fixation Device from Left Ankle Joint, Open Approach (ICD-10-PCS; 2017-10-14)
PROC: 0JBR0ZZ Excision of Left Foot Subcutaneous Tissue and Fascia, Open Approach (ICD-10-PCS; principal; 2017-10-14 14:00)
DX: T84.625A Infection and inflammatory reaction due to internal fixation device of left fibula, initial encounter (principal); T81.30XA Disruption of wound, unspecified, initial encounter; I69.351 Hemiplegia and hemiparesis following cerebral infarction affecting right dominant side; Z68.43 Body mass index [BMI] 50.0-59.9, adult; L97.418 Non-pressure chronic ulcer of right heel and midfoot with other specified severity; E11.42 Type 2 diabetes mellitus with diabetic polyneuropathy; E66.01 Morbid (severe) obesity due to excess calories; E11.22 Type 2 diabetes mellitus with diabetic chronic kidney disease; I69.320 Aphasia following cerebral infarction; N18.3 Chronic kidney disease, stage 3 (moderate); I48.0 Paroxysmal atrial fibrillation; B96.5 Pseudomonas (aeruginosa) (mallei) (pseudomallei) as the cause of diseases classified elsewhere; B96.4 Proteus (mirabilis) (morganii) as the cause of diseases classified elsewhere; B95.2 Enterococcus as the cause of diseases classified elsewhere; X58.XXXA Exposure to other specified factors, initial encounter; E78.5 Hyperlipidemia, unspecified; Z66 Do not resuscitate; E03.9 Hypothyroidism, unspecified; G47.33 Obstructive sleep apnea (adult) (pediatric); M19.90 Unspecified osteoarthritis, unspecified site; M54.5 Low back pain; K59.00 Constipation, unspecified; E11.621 Type 2 diabetes mellitus with foot ulcer; I12.9 Hypertensive chronic kidney disease with stage 1 through stage 4 chronic kidney disease, or unspecified chronic kidney disease; Q27.39 Arteriovenous malformation, other site; Z99.3 Dependence on wheelchair; Z96.653 Presence of artificial knee joint, bilateral; Z79.01 Long term (current) use of anticoagulants; Z79.1 Long term (current) use of non-steroidal anti-inflammatories (NSAID); Z79.4 Long term (current) use of insulin; Z79.891 Long term (current) use of opiate analgesic; Z79.899 Other long term (current) drug therapy; Z88.8 Allergy status to other drugs, medicaments and biological substances; Z82.49 Family history of ischemic heart disease and other diseases of the circulatory system; Z82.3 Family history of stroke
CPT/HCPCS: 36415; 71045; 80048; 80053; 83605; 85025; 85610; 86140; 87040; 87070; 87073; 87077; 87186; 87205; 87640; 87641; 88300; 93005; 99285; A9270-GY; J0690; J1644; J2250; J2704; J3010

== ENCOUNTER → 2017-12-11 20:07 | Emergency (ER) | payer MEDICARE, OTHER ==
[~2017-12-11 20:07] MED LIST: cloNIDine TAB* 0.1 MG PO ONE
--- OUTSIDE RECORDS SUMMARY | 2017-12-11 20:36 | XMS REPORT ---
:1945 External Reference #:[id number] Author Organization [facility] Address [address] [place] [address] [place] [address] Phone [phone] Care Team Providers Name Role Phone Patient's Choice Primary Care Physician Unavailable Payers Type Date Identification Numbers Payment Provider Subscriber Medicare Primary Effective: Policy Number: Medicare Joselin Munoz 1996 [id number] PayID: [id number] [address] [place] [address] [facility] Part B Policy Number: [id number] Medicaid Joselin Munoz Group Name: 1 [address] PayID: [id number] [place] [address] Commercial Expires: 2017 Policy Number: [id number] Robbieevelia Munoz PayID: [id number] [address] [place] [address] Problems Date Description Provider Status Onset: 04/10/2013 Atrial fibrillation Ruben Bustamante M.D. Active Onset: 04/10/2013 Chest pain Ruben Bustamante M.D. Active Onset: 04/10/2013 Preoperative cardiovascular Ruben Bustamante M.D. Active examination Onset: 04/10/2013 Abnormal results of cardiovascular Ruben Bustamante M.D. 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 Onset: 10/01/2017 Medication monitoring Rianna Dias NP Active Onset: 10/01/2017 Long-term current use of Rianna Dias NP Active anticoagulant Onset: 10/01/2017 Abrasion and/or friction burn of Katherin Lind, SOCIAL WELFARE CLERK Active lower limb without infection Onset: 10/01/2017 Abrasion and/or friction burn of Katherin Lind, SOCIAL WELFARE CLERK Active lower limb without infection Onset: 10/01/2017 Cerebral infarction due to Hermelindo Gunderson MD Active embolism of cerebral arteries Onset: 10/01/2017 Displ bimalleol fx l low leg, subs Hermelindo Gunderson MD Active for clos fx w delay heal Onset: 10/01/2017 Dependence on wheelchair Hermelindo uGnderson MD Active Onset: 10/01/2017 Chronic atrial fibrillation Hermelindo Gunderson MD Active Onset: 10/01/2017 Hypothyroidism Hermelindo Gunderson MD Active Onset: 10/01/2017 Long-term current use of insulin Hermelindo Gunderson MD Active Onset: 10/01/2017 Hyperlipidemia Hermelindo Gunderson MD Active Onset: 10/01/2017 Cough Katherin Lind NP Active Onset: 10/01/2017 Displ bimalleol fx l low leg, subs Rio Tim M.D. Active for clos fx w routn heal Onset: 10/01/2017 Charcot's joint of foot Rio Tim M.D. Active Onset: 10/01/2017 Joint derangement Rio Tim M.D. Active Onset: 10/01/2017 Gastrointestinal hemorrhage Key Pelletier M.D. Active Onset: 10/01/2017 Diabetes mellitus [place] M.D. Active Onset: 10/01/2017 Electrocardiogram abnormal Danielito Owens M.D., Active FACC, FASNC Onset: 10/01/2017 Pressure ulcer of unspecified Jennifer GarciaSANAZ dumas Active heel, stage 3 Onset: 10/01/2017 Implantation of joint prosthesis ANN Patel Active Onset: 10/01/2017 Other specified health status ANN Patel Active Onset: 10/01/2017 H/O: fracture ANN Patel Active Onset: 10/01/2017 Encounter for other orthopedic SANAZ Benites Active aftercare Onset: 10/01/2017 Closed bimalleolar fracture Jennifer SANAZ Ordaz Active Onset: 10/01/2017 Closed trimalleolar fracture Rio Tim M.D. Active Onset: 10/01/2017 Aphasia as late effect of Orquidea Quiñones MD Active cerebrovascular accident Onset: 10/01/2017 Acute hemorrhagic cystitis Rob Parr, N.P. 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 Active embolism of middle cerebral artery Onset: 10/01/2017 Cerebral artery occlusion Varun Hodges M.D. Active Onset: 10/01/2017 Morbid obesity Varun Hodges M.D. 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 Active Onset: 10/01/2017 Abnormal involuntary movement Myra Marquez M.D. Active Onset: 10/01/2017 Disturbance of consciousness Myra Marquez M.D. Active Onset: 10/01/2017 Athscl heart disease of [place] Jalen Snyder M.D., FACC, Active coronary artery w/o ang pctrs FSCAI Onset: 10/01/2017 Transient cerebral ischemia Blane Martinez M.D. Active Onset: 10/01/2017 Electrocardiogram abnormal Ruben Bustamante M.D. Active Onset: 10/01/2017 Pre-surgery evaluation Ruben Bustamante M.D. Active Onset: 10/01/2017 Melena Blane Martinez M.D. Active Onset: 10/01/2017 Anemia due to chronic blood loss Blane Martinez M.D. Active Onset: 10/01/2017 Acute posthemorrhagic anemia Key Pelletier M.D. Active Onset: 10/01/2017 Gastrointestinal hemorrhage Key Pelletier M.D. Active Onset: 10/01/2017 Ischemic heart disease Key Pel[place] M.D. Active Onset: 10/01/2017 Impending infarction Jalen Snyder M.D., [facility], Active [facility] Onset: 10/01/2017 Aortic valve disorder Jalen Snyder M.D., [facility], Active [facility] Onset: 10/01/2017 Edema Danielito Owens M.D., Active [facility], [facility] Onset: 10/01/2017 Spinal stenosis of lumbar region Dany Iqbal M.D. Active Onset: 10/01/2017 Postsurgical Status Other Dany Iqbal M.D. Active Onset: 10/01/2017 Postsurgical Status Other Dany Iqbal M.D. Active Onset: 10/01/2017 Abnormal gait Dany Iqbal M.D. Active Family History Date Family Member(s) Problem(s) Comments [...] Reaction Status Severity Comments 04/10/2013 Dilaudid active 10/01/2017 Hydromorphone Hydrochloride active 10/01/2017 Rivaroxaban active Medications Medication Date Status Form Strength Qnty SIG Indications Ordering Provider Warfarin Sodium 10/01 Active Tablets 3mg 90tab 1 tab every I48.91 s night or as [place], directed SOCIAL WELFARE CLERK Levothyroxine 10/01 Active Tablets 125mcg 30tab 1 by mouth E03.9 Rianna Sodium s every day Arun OBEY Oxycodone HCL 10/01 Active Tablets 5mg 30tab 1 tab PO Q R52 Rianna s 8 hrs prn Arun SOCIAL WELFARE CLERK Acetaminophen 10/01 Active Tablets 500mg 2 tabs PO Rianna bid Arun OBEY Ferrous Sulfate 10/01 Active Tablets 325(65Fe) 90tab 1 by mouth mg s every day Arun OBEY Aspercreme 10/01 Active Patches 4% 90uni apply qam L Lidocaine ts shoulder, Arun, remove Q PM SOCIAL WELFARE CLERK Miralax 10/01 Active Powder 3350NF 1unit 17 gm Dany J. s mixed w/ 8 Pollack, olga M.D. water/juice On even days, hold for loose stool. Furosemide Active Tablets 20mg 90tab 1 po qd Unknown /0000 s Lantus Active Solution 100Unit/M 6Vial 26 units SQ E11.9 Vince, /0000 L s Q hs Shruti, DO Atorvastatin Active Tablets 40mg 90tab take 1 E78.5 Vince, Calcium /0000 s tablet at Shruti, bedtime on DO Odd days Metoprolol Active Tablets ER 25mg 90tab 1 by mouth I10 Vince, Succinate ER /0000 24HR s every day Shruti, DO Amiodarone HCL Active Tablets 200mg 1 by mouth Vince, /0000 every day Shruti, DO Humalog Active Solution 100Unit/M 4u subq Vince, /0000 Cartridge L with Shruti, breakfast, DO 6u subq with lunch and dinner Milk Of Magnesia Active Suspension 400mg/5ML 30 Vince, /0000 milliliters Shruti, by mouth Q DO 6hrs as needed for constipatio n Tylenol Extra Active Tablets 500mg 2 by mouth Vince, Strength /0000 Q 24 hrs as Shruti, needed DO Ascorbic Acid Active Tablets 500mg 30tab 1 atb PO Vince, /0000 s bid Shruti, DO Vitamin D3 Ultra Active Tablets 32255Bgxe one by E55.9 Vince, Potency /0000 mouth Q Shruti, Month DO Baclofen Active 5mg q 8hrs prn G89.29 Vince, /0000 Shruti, DO Calazime Skin Active Paste apply to Vince, Protectant/Chu / buttocks Q Shruti, mine shift DO Keflex Active Capsules 250mg q 8 hours x [place], 10 days MD Rio Cholecalciferol Active Powder 1000 unit Unknown / tablet by mouth every day Polyethylene Active Packet 3350NF Unknown Glycol 3350 /0000 Vitamin C Active Capsules 500mg 1 by mouth Unknown every day Methocarbamol 05/16 Hx Tablets 500mg 45tab one to two Dany Waller /2009 s up to qikang Iqbal - prn for Guillermo.DFrancisco 04/08 Hydrocodone/Acet 03/28 Hx Tablets 5-325mg 90tab 1-2 po qid Dany Waller aminophen /2009 s prRomán Gar M.D. 04/09 Oxycodone HCL 01/09 Hx Tablets 5mg 90tab 1-2 po qid Dany Waller /2009 s prn Román Iqbal M.D. 03/28 Valium 10/04 Hx Tablets 5mg 3tabs 1 po 2 Dany Waller /2009 hours prior Far[place], - to october Guillermo.DFrancisco 04/09 take more q 1 hr prn anxiety Levothyroxine Hx Tablets 125mcg 90tab 1 po qd Unknown s - 03/[address] 20mg 90cap 1 po qd Unknown /0000 s - 03/16 Multivitamins Hx Capsules 30cap 1 capsule Unknown /0000 s ophelia;y - 03/16 Oxycodone HCL Hx up to 6 Unknown /0000 tabs po qd - prn 10/01 Gemfibrozil Hx Tablets 600mg 180ta 1 po bid Unknown /0000 bs - 10/01 Gabapentin Hx Capsules 100mg 240ca 2 po bid Unknown /0000 ps - 03/16 B-12 Hx 1200mg 1 po qd Unknown /0000 - 03/16 Glipizide Hx Tablets 5mg 60tab 1 po bid Unknown /0000 s - 03/07 Citalopram Hx Tablets 20mg 30tab 1 po qd Unknown Hydrobromide /0000 s - 10/01 Aspirin Ec [address] 81mg 100ta 1 by mouth Unknown /0000 bs every day - 03/16 Glucosamine Hx Capsules 1500Com bid Unknown Chondroitin 1500 /0000 Complex Maximum - Strength 03/10 Celexa Hx Tablets 10mg 1 by mouth Unknown /0000 every day - 03/10 Docusate Sodium Hx Capsules 100mg 1 by mouth Unknown /0000 twice a day - 03/16 Humalog Mix Hx Suspension (75-25)10 8 units sq Unknown 75/25 /0000 0Unit/ML twice a day - with 03/26 and dinner Cipro Hx Tablets 500mg 1 by mouth Unknown /0000 twice a day - 03/16 Albuterol Hx Nebulizer (2.5mg/3M 1 vial via Unknown Sulfate /0000 L) 0.083% nebulizer 4 - times daily 03/16 as needed /2016 Warfarin Sodium Hx Tablets 2.5mg Unknown /0000 - 10/01 Skin Prep Wipes Hx Unknown /0000 - 10/01 Miconazole Hx Cream 2% apply twice Unknown Nitrate /0000 a day until - clear 10/01 Hydrocortisone Hx Ointment 1% Unknown / - 10/01 Medications Administered in Office Medication Date Status Form Strength Qnty SIG Indications Ordering Provider Inj, Administered Injection Ruben Allen Regadenoson, Sangeetha Bustamante M.D. 0.1 MG Technetium TC Administered Injection Ruben Allen 99M Sangeetha Bustamante M.D. Tetrofosmin, Per Unit Dose Up To 40 Millicuries Vital Signs Date Vital Result Comment 12/03/2017 Heart Rate 60 /min BP Systolic 130 mmHg BP Diastolic 88 mmHg Respiratory Rate 16 /min Body Temperature 97.6 F Pain Level 5 11/19/2017 Heart Rate 58 /min BP Systolic 150 mmHg BP Diastolic 48 mmHg Respiratory Rate 24 /min Pain Level 5 11/12/2017 Height 65 inches 5'5" Weight 303.00 lb Heart Rate 68 /min Respiratory Rate 15 /min Body Temperature 97.5 F Pain Level 7 BMI (Body Mass Index) 50.4 kg/m2 10/31/2017 Height 65 inches 5'5" Weight 303.00 lb Heart Rate 80 /min BP Systolic Sitting 126 mmHg BP Diastolic Sitting 60 mmHg Respiratory Rate 16 /min Body Temperature 97.0 F Pain Level 7 BMI (Body Mass Index) 50.4 kg/m2 09/26/2017 Height 65 inches 5'5" Heart Rate [...] Color YELLOW Yellow Appearance-Urine CLEAR Clear Specific Crucible-Ur 1.014 1.010-1.030 Esterase-Urine 2+ Negative Nitrite NEGATIVE Negative Kmyosgrviazh-El-JFE NEGATIVE Negative Protein-Urine NEGATIVE Negative PH-Urine 5.5 [...] 0.3 0-0.6 13 Abs Basophils 0 0-0.2 13 1 Distribution Operation Supervisor: [id number] BEL RENNER 2 Distribution Operation Supervisor: [id number] IVANNA JUN 12 Because ethnic data is not [...] change was based on recommendations from the [place] [employer]. 6 Please note change in reference range effective 07 . 7 A metabolite of Naproxen, O-desmethylnaproxen, has been shown to interfere with the [place] method for measuring total bilirubin. Samples from [...] 5 DAYS 12 ---- RUN DATE: 01/19/10 [facility] NMI LIVE PAGE 1 RUN TIME: 1215 Specimen Inquiry RUN USER: INTERFACE -- Name: JOSELIN MUNOZ Status: DIS IN Re01/12/10 Age/Sex: 64/F Unit#: [id number] Location: [facility]. : 41 -- Specimen: [id number] [facility] Spec Date: 01/12/[address]: Dany bailey MD Spec Type: SURGICAL P Received: 01/12/10-7286 Copies to: SPECIMEN L3 TO L5 LAMINA AND SPINUS PROCESS AND LIGAMENT HISTORY PRE-OP DIAGNOSIS: L3/L5 Lumbar stenosis. GROSS DESCRIPTION The specimen is received in formalin labelled Joselin Munoz, L3 to L5 Lamina and Spinous Process and Ligament, and consists of multiple fragments of bone and dense fibrous tissue measuring in aggregate 5.0 x 4.0 x 2.5 cm. Lumber Sales Supervisor section, one cassette after decal. 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 B) Normocellular bone marrow with mixed trilineal hematopoiesis. C) Ligament tissue with dense fibrosis and myxoid degeneration. Signed Electronically by: FOREIGN BROWN MD 01/19/10 1214 -- -- DEPARTMENT OF PATHOLOGY, [address] [place] [address] [facility] Permit #[id number] Foreign Brown M.D. Director Chaz Kat M.D. Engagement Executive Dir mariam -- 01/12 14 ANY BLOOD NOT GIVEN WILL [...] change was based on recommendations from the [place] [employer]. 18 Please note change in [...] Anemia Procedures Date CPT Code Description Status 12/03/2017 55179 Short Leg Cast Completed 10/14/2017 50951 Removal Implant Deep Wire,Screw Nail,Trevon Or Plate Completed 10/14/2017 03081 Removal Implant Deep Wire,Screw Nail,Trevon Or Plate Completed 06/19/2016 43261 Walking Cast Completed 06/01/2016 22794 Walking Cast Completed 05/19/2016 90587 EKG, Interpretation Only Completed 05/10/2016 36452 Walking Cast Completed 04/26/2016 41971 Walking Cast Completed 04/24/2016 23105 Walking Cast Completed 04/13/2016 97098 Walking Cast Completed 04/03/2016 55223 Walking Cast Completed 03/29/2016 08430 Walking Cast Completed 03/22/2016 92838 Short Leg Cast Completed 03/15/2016 61131 Short Leg Cast Completed 02/06/2016 25436 ORIF Open TX Bimalleolar Ankle FX Includes Internal Completed Fixation 02/06/2016 53886 ORIF Open TX Bimalleolar Ankle FX Includes Internal Completed Fixation 02/01/2016 75563 EEG Recording Awake & Asleep Completed 01/20/2016 45781 EEG Recording Awake & Drowsy Completed 01/19/2016 14178 EKG, Interpretation Only Completed 01/17/2016 36662 ECHO Transthorasic Realtime 2D W Doppler & Color Flow Completed Hosp 05/27/2014 69954 EKG Tracing & Interpretation Completed 04/24/2013 79236 Stress Test Completed 04/24/2013 69069 Myocardial Perfusion Imaging Tomographic (Spect) Completed Multiple Studies 04/10/2013 04282 EKG Tracing & Interpretation Completed 12/03/2012 27897 EKG, Interpretation Only Completed 12/02/2012 27947 ECHO Transthorasic Realtime 2D W Doppler & Color Flow Completed Hosp 01/12/2010 77860 Pimentel/Facet/Foraminotomy;Ea Addl Segment; Cerv, Thora, Or Completed Lumbar 01/12/2010 92616 Pimentel/Facet/Foraminotomy;Vertebral Segment; Lumbar Completed Encounters Type Date Location Provider CPT E/M Dx Office Visit 10/17/2017 8:15a [facility] Shruti Clarke D.O. 35850 I69.320 I48.0 T81.4xxS E11.9 [facility] [address] S91.002A scooter Brantley M.D. I10 E11.610 Z78.9 Office Visit 10/14/2017 [facility] 58047 S91.002A scooter Brantley M.D. I10 E11.610 Z78.9 Office Visit 10/13/2017 [facility] 9[address] S91.002A Assoc Micha Lyle I10 E11.610 Z78.9 Office Visit 10/13/2017 10:12a [facility], 50142 S91.002A Juju Lyle E11.610 Office Visit 10/12/2017 [facility] 78066 S91.002A scooter Brantley M.D. I10 E11.610 Z78.9 Office Visit 09/26/2017 10:00a [facility] [place], 30793 M14.622 Juju Lyle Office Visit 09/16/2017 9:30a [facility] Rianna Dias, 03274 N39.0 SOCIAL WELFARE CLERK R31.0 Office Visit 09/13/2017 9:30a [facility] [place] [address] I69.320 M25.572 I48.0 M25.512 E11.9 I10 Office Visit 08/27/2017 8:15a [facility] Katherin Lind, OBEY 82415 M25.572 Office Visit 06/27/2017 9:15a [facility] [place], 01258 M19.172 Of Juju Lyle Office Visit 05/29/2017 8:45a [facility] Rianna Mccallcarolynn, OBEY 36055 M25.512 Office Visit 05/21/2017 8:15a [facility] Riannatelma Dias, OBEY 23074 I63.10 I48.0 Z51.81 Z79.01 Office Visit 05/09/2017 8:30a [facility] Katherin Lind, OBEY 12990 S70.312A S70.311A Office Visit 04/26/2017 10:00a [facility] [place] [address] I63.40 S82.842G R47.01 Z99.3 Office Visit 04/23/2017 8:15a [facility] [place] [address] I48.2 Z79.01 I10 E03.9 Z79.4 E11.9 E78.5 Z99.3 Office Visit 04/18/2017 8:00a [facility] [place] [address] R05 Office Visit 03/26/2017 8:45a [facility] [place], 93079 S82.842D Of Juju Lyle M14.672 Office Visit 03/13/2017 8:00a [facility] [place] [address] M25.572 Office Visit 02/13/2017 8:00a [facility] Taniya Appiah M.D. 02407 I63.10 I48.0 Z51.81 Z79.01 Office Visit 01/29/2017 10:00a [facility] Taniya Appiah M.D. 28686 I63.10 I48.0 Z51.81 Z79.01 Office Visit 12/07/2016 10:15a [facility], 32384 M14.672 Juju Lyle M25.372 Office Visit 09/18/2016 10:30a [facility] [place] 89832 S82.842D Of Juju Lyle Office Visit 08/24/2016 10:00a [facility] [place] 32246 S82.842D Of Juju Lyle Office Visit 07/24/2016 9:30a [facility] [place] 58422 S82.842D Of Juju Lyle Office Visit 06/19/2016 9:30a [facility] [place] 19375 S82.842D Of Juju Lyle Office Visit 06/01/2016 9:15a [facility] [place] 47278 S82.842D Of Juju Lyle S82.842D Office Visit 05/24/2016 12:55p [facility], [place], 39047 K92.2 Hospitalists M.DFrancisco I48.91 E11.8 I10 Office Visit 05/23/2016 12:55p [facility], [place], 61189 K92.2 Hospitalists M.DFrancisco I48.91 E11.8 I10 Office Visit 05/22/2016 12:55p [facility] [place], 58948 K92.2 Hospitalists M.DFrancisco I48.91 E11.8 I10 Office Visit 05/21/2016 12:54p [facility] [place] [address]3936 K92.2 Hospitalists M.DFrancisco I48.91 E11.8 Office Visit 05/20/2016 12:54p [facility], Taniya Appiah, 27833 K92.2 Hospitalists MFranciscoDFrancisco I48.91 E11.8 I10 Office Visit 05/19/2016 12:53p [facility], Taniya Appiah, 24487 K92.2 Hospitalists Valdo I48.91 E11.8 I10 Office Visit 05/18/2016 12:53p [facility] Assoc,pc Rob Parr, 42044 K92.2 Hospitalists N.P. I48.91 E11.8 I10 Office Visit 05/10/2016 9:15a [facility] [place], 10494 S82.842D Of Juju Lyle S82.842D Office Visit 02/08/2016 2:32p [facility] Jose Angel SalazarYani, 83103 E11.9 Assoc,pc [place] Hospitalists Z96.7 Z78.9 Z87.81 Office Visit 02/07/2016 2:31p [facility] Jose Angel Kuhn, 78737 E11.9 Assoc,pc PA Hospitalists Z96.7 Z78.9 Z87.81 Office Visit 02/06/2016 2:28p [facility]ty Kuhn, 82164 E11.9 Assoc, PA Hospitalists Z96.7 Z78.9 Z87.81 Office Visit 02/04/2016 3:50p [facility], 51189 S82.842A Juju Lyle Office Visit 02/04/2016 4:13p [facility] [place], 55121 S82.852A Juju Lyle Office Visit 02/03/2016 9:15a [facility] [place]quidea Qu[place] [address] I69.320 I10 S82.842A Z79.01 Office Visit 02/02/2016 7:00a [facility], 36293 S82.842A Juju Lyle Office Visit 02/02/2016 1:49p [facility], Robsheila Parr, 73673 R47.01 Hospitalists N.P. I48.2 N30.01 I63.412 Office Visit 02/01/2016 2:43p [facility] [place], [address] R47.01 Assoc, Hospitalists Valdo I48.2 N30.01 I63.412 Office Visit 01/24/2016 12:44p [facility], Varun Hodges, 93602 I63.9 Hospitalists M.D. E11.9 E66.01 Z79.4 Office Visit 01/23/2016 12:43p [facility], Varun Hodges, 45872 I63.9 Hospitalists M.D. E11.9 E66.01 Z79.4 Office Visit 01/22/2016 11:33a [facility] Wu Hernandez 29664 I63.512 Valdo Valiente I65.29 I10 I48.91 Office Visit 01/22/2016 12:43p [facility], Taniya Appiah, 63248 I63.9 Hospitalists M.DFrancisco E11.9 E66.01 Z79.4 Office Visit 01/21/2016 12:12p [facility] Wu Hernandez 86084 I63.512 Valdo Valiente I48.91 I65.29 I10 Office Visit 01/21/2016 12:42p [facility], Taniya Appiah, 64209 I63.9 Hospitalists M.DFrancisco E11.9 E66.01 Z79.4 Office Visit 01/20/2016 12:09p [facility] Myra Marquez 00231 I63.512 Valdo R25.1 R40.0 I10 I48.91 Office Visit 01/20/2016 12:42p [facility], [place] [address] I63.9 Hospitalists E11.9 E66.01 Z79.4 Office Visit 01/19/2016 12:41p [facility], [place] [address] I63.9 Hospitalists E11.9 E66.01 Z79.4 Office Visit 01/19/2016 12:06p [facility] Myra Marquez 01318 I63.512 Valdo I10 I48.91 R25.1 R40.0 Office Visit 01/18/2016 1:56p [facility] Myra Marquez 57118 I63.512 MMaretll I10 I48.91 I65.29 Office Visit 01/18/2016 12:41p [facility],[place] [address] I63.9 Hospitalists E11.9 E66.01 Z79.4 Office Visit 01/17/2016 12:40p [facility],[place] [address] I63.9 Hospitalists E11.9 E66.01 Z79.4 Office Visit 01/17/2016 9:22a [facility] Darek Brown, 93322 I63.512 I10 I48.91 Office Visit 01/16/2016 12:39p [facility], Blane Martinez M.D. 06704 G45.9 Hospitalists E11.9 E66.01 Z79.4 Office Visit 05/27/2014 9:30a [facility] Tiffany Bustamante, 14398 427.31 Laborer Carpentry Dock M.Tiffany Office Visit 04/10/2013 1:00p [facility] Tiffany Bustamante, 14091 427.31 [facility] M.Tiffany 786.50 V72.81 794.39 Office Visit 12/11/2012 3:51p [facility], Blane Martinez M.D. 31250 578.1 Hospitalists 280.0 Office Visit 12/10/2012 3:50p [facility], Blane Martinez M.D. 26307 578.1 Hospitalists 280.0 Office Visit 12/09/2012 3:50p [facility], [place], 51676 578.1 Hospitalists M.DFrancisco 280.0 Office Visit 12/08/2012 3:50p [facility], [place], 17638 578.1 Hospitalists M.D. 280.0 Office Visit 12/06/2012 3:36p [facility], [place], 56670 285.1 Hospitalists M.DFrancisco 578.9 411.89 Office Visit 12/05/2012 3:36p [facility], [place], 94270 285.1 Hospitalists MFranciscoDFrancisco 578.9 411.89 Office Visit 12/04/2012 3:36p [facility], [place], 55153 285.1 Hospitalists M.DFrancisco 578.9 411.89 Office Visit 12/03/2012 4:07p [facility] Jalen Snyder M.D., 95405 794.31 [facility], FSCAI 411.1 424.1 Office Visit 12/03/2012 3:35p [facility], [place], 56774 285.1 Hospitalists M.DFrancisco 578.9 411.89 Office Visit 12/02/2012 3:35p [facility] Ass, [place], 35557 285.1 Hospitalists M.D. 578.9 794.31 Office Visit 06/18/2012 1:20p [facility] Dany Iqbal, 14024 724.02 Of Laborer Carpentry Dock M.D. Office Visit 06/12/2011 1:20p [facility] Dany Iqbal 28308 724.02 Of Laborer Carpentry Dock M.D. Office Visit 05/15/2011 3:00p [facility] Dany Iqbal, 90942 724.02 Of Laborer Carpentry Dock M.D. Office Visit 12/26/2010 11:00a [facility] Dany Iqbal, 88581 724.02 Of Laborer Carpentry Dock M.D. Office Visit 09/25/2010 11:40a [facility] Services Dany Iqbal, 45929 724.02 Of Laborer Carpentry Dock M.D. Office Visit 06/26/2010 9:40a Neurosurgery Services Dany Iqbal, 83922 724.02 Of Laborer Carpentry Dock M.D. Office Visit 01/09/2010 3:40p [facility] Services Dany Iqbal, 96511 724.02 Of Laborer Carpentry Dock M.D. Office Visit 12/09/2009 10:40a [facility] Services Dany Iqbal 72958 724.02 Of Laborer Carpentry Dock M.D. Office Visit 11/22/2009 1:40p [facility]surgery Services Dany Iqbal 56844 781.2 Of Laborer Carpentry Dock M.D. Office Visit 10/14/2009 9:20a [facility] Services Dany Iqbal, 18048 781.2 Of Laborer Carpentry Dock M.D. Office Visit 10/04/2009 1:40p [facility]surgery Services Dany Iqbal, 58471 781.2 Of Laborer Carpentry Dock M.D. Plan of Care Future Appointment(s):12/19/2017 9:15 am - Rio Tim M.D. at [facility]12/26/2017 9:30 am - Rio Tim M.D. at [facility]12/03/2017 - Rio Tim M.D.S91.002D Unspecified open wound, left ankle, subsequent encounterFollow up:2 weeks
--- OUTSIDE RECORDS SUMMARY | 2017-12-11 20:36 | XMS REPORT ---
:1945 External Reference #:[id number] Author Organization [employer] Address [address] [place] [address] [place] [address] Phone [phone] Care Team Providers Name Role Phone Patient's Choice Primary Care Physician Unavailable Payers Type Date Identification Numbers Payment Provider Subscriber Medicare Primary Effective: Policy Number: Medicare Joselin Munoz 1996 [id number] PayID: [id number] [address] [place] [address] Medigap Part B Effective: 2012 Policy Number: BS Facets Joselin Munoz [id number] Expires: 2017 PayID: [id number] [address] [address] [place] [address] Medigap Part B Effective: 2016 Policy Number: [id number] Medicaid Joselin Munoz Expires: 2017 Group Name: 1 1 [address] PayID: [id number] [place] [address] Commercial Policy Number: [id number] Robbie Joselin Munoz PayID: [id number] [address] [place] [address] Problems Date Description Provider Status Onset: 04/10/2013 [...] Abrasion and/or friction burn of Katherin Lind, FINANCIAL DEVELOPER Active lower limb without infection Onset: 10/01/2017 Abrasion and/or friction burn of Katherin Lind, FINANCIAL DEVELOPER Active lower limb without infection Onset: 10/01/2017 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 Active Onset: 10/01/2017 Electrocardiogram abnormal Danielito Juan R Owens M.D., Active FACC, FASNC Onset: 10/01/2017 Pressure ulcer of unspecified Jennifer Ordaz, RPA-C Active heel, stage 3 Onset: 10/01/2017 Implantation of joint prosthesis ANN Patel Active Onset: 10/01/2017 Other specified health status ANN Patel Active Onset: 10/01/2017 H/O: fracture ANN Patel Active Onset: 10/01/2017 Encounter for other orthopedic Jennifer Orlin, RPA-C Active aftercare Onset: 10/01/2017 Closed bimalleolar fracture Jennifer Garciajoy, RPA-C Active Onset: 10/01/2017 Closed trimalleolar fracture Rio [...] Active Onset: 10/01/2017 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., [facility], Active coronary artery w/o ang pctrs FSCAI [...] Onset: 10/01/2017 Impending infarction Jalen Snyder M.D., [facility], [facility] Onset: 10/01/2017 Aortic valve disorder Jalen Snyder M.D., [facility], [facility] Onset: 10/01/2017 Edema Danielito Juan R Owens M.D., Active [facility] Onset: 10/01/2017 Spinal stenosis of lumbar region [...] I48.91 s night or as [place], directed OBEY Levothyroxine 10/01 Active Tablets 125mcg 30tab 1 by mouth E03.9 Rianna Sodium s every day OBEY Dias Oxycodone HCL 10/01 Active Tablets 5mg 30tab 1 tab PO Q R52 s 8 hrs prn OBEY Dias Acetaminophen 10/01 Active Tablets 500mg 2 tabs PO bid OBEY Dias Ferrous Sulfate 10/01 Active Tablets 325(65Fe) 90tab 1 by mouth mg s every day OBEY Dias Aspercreme 10/01 Active Patches 4% 90uni apply qam L ts shoulder, [place], remove Q PM FINANCIAL DEVELOPER Miralax 10/01 Active Powder 3350NF 1unit 17 gm Dany Waller s mixed w/ 8 olga Iqbal M.D. water/juice On even days, hold for [...] Tablets 500mg 30tab 1 atb PO Vince, / s bid Shruti, DO Vitamin D3 Ultra Active Tablets 87883Ytsf one by E55.9 Vince, Potency /0000 mouth Q Shruti, Month DO Baclofen Active 5mg q 8hrs prn G89.29 Vince, / Shruti, DO Calazime Skin Active Paste apply to Vince, Protectant/Chu / buttocks Q Shruti, mine shift DO Keflex Active Capsules 250mg q 8 hours x [place], 10 days MD Rio Cholecalciferol Active Powder 1000 unit Unknown tablet by mouth every day Polyethylene Active Packet 3350NF Unknown Glycol 335 Vitamin C Active Capsules 500mg 1 by mouth Unknown every day Methocarbamol 05/16 Hx Tablets 500mg 45tab one to two Dany Waller /2009 s up to qikang Iqbal - prn for M.DFrancisco 04/08 Hydrocodone/Acet 03/28 Hx Tablets 5-325mg 90tab 1-2 po qid Dany Waller aminophen /2009 s prn Román Iqbal M.D. 04/09 Oxycodone HCL 01/09 Hx Tablets 5mg 90tab 1-2 po qid Dany Waller /2009 s prn Román Iqbal M.D. 03/28 Valium 10/04 Hx Tablets 5mg 3tabs 1 po 2 Dany Waller /2009 hours prior Farida - to mri october M.D. 04/09 take more q 1 hr prn anxiety Levothyroxine Hx Tablets 125mcg 90tab 1 po qd Unknown Sodium s - 03/[address] 20mg 90cap 1 po qd Unknown / s - 03/16 Multivitamins Hx Capsules 30cap 1 capsule Unknown s ophelia;y - 03/16 Oxycodone HCL Hx up to 6 Unknown tabs po qd - prn 10/01 Gemfibrozil Hx Tablets 600mg 180ta 1 po bid Unknown bs - 10/01 Gabapentin Hx Capsules 100mg 240ca 2 po bid Unknown /0000 ps - 03/16 B-12 00 Hx 1200mg 1 po qd Unknown /0000 - 03/16 Glipizide Hx Tablets 5mg 60tab 1 po bid Unknown /0000 s - 03/07 Citalopram Hx Tablets 20mg 30tab 1 po qd Unknown Hydrobromide /0000 s - 10/01 Aspirin Ec Hx Tablets DR 81mg 100ta [...] twice a day - with 03/26 breakfast and dinner Cipro Hx Tablets 500mg 1 by mouth Unknown /0000 twice a day - 03/16 Albuterol Hx Nebulizer (2.5mg/3M 1 vial via Unknown Sulfate /0000 L) 0.083% nebulizer 4 - times daily 03/16 as needed /2016 Warfarin Sodium Hx Tablets 2.5mg Unknown / - 10/01 Skin Prep Wipes Hx Unknown /0000 - 10/01 Miconazole Hx Cream 2% apply twice Unknown Nitrate /0000 a day until - clear 10/01 Hydrocortisone Hx Ointment 1% Unknown / - 10/01 Medications Administered in Office Medication Date Status Form Strength Qnty SIG Indications Ordering Provider Inj, Administered Injection Ruben Allen Regadenoson, 013 Valdo Bustamante 0.1 MG Technetium TC Administered Injection Ruben Allen 99M 013 Valdo Bustamante Tetrofosmin, Per Unit Dose Up To 40 Millicuries Vital Signs Date Vital Result Comment 11/19/2017 Heart Rate 58 /min BP Systolic [...] Color YELLOW Yellow Appearance-Urine CLEAR Clear Specific [place]-Ur 1.014 1.010-1.030 Esterase-Urine 2+ Negative Nitrite NEGATIVE Negative Ejohcuygreny-Ev-ORD NEGATIVE Negative Protein-Urine NEGATIVE Negative PH-Urine 5.5 [...] Abs Basophils 0 0-0.2 13, 23 1 Brick Pitcher: [id number] BEL RENNER 2 Brick Pitcher: [id number] LAPOINT JUN 12 Because ethnic data is [...] change was based on recommendations from the [place] [employer]. 6 Please note change in reference range effective 07 . 7 A metabolite of Naproxen, O-desmethylnaproxen, has been shown to interfere with the [place] method for measuring total bilirubin. Samples from [...] 5 DAYS 12 ---- RUN DATE: 01/19/10 [facility] NMI LIVE PAGE 1 RUN TIME: 1215 Specimen Inquiry RUN USER: INTERFACE -- [id number] Status: DIS IN Re01/12/10 Age/Sex: 64/F Unit#: [id number] Location: [facility]. : 43 -- Specimen: [id number] [facility] Spec Date: 01/12/[address]: Dany bailey MD Spec Type: SURGICAL P Received: 01/12/10-6148 Copies to: SPECIMEN L3 TO L5 LAMINA AND SPINUS PROCESS AND LIGAMENT HISTORY PRE-OP DIAGNOSIS: L3/L5 Lumbar stenosis. GROSS DESCRIPTION The specimen is received in formalin labelled Joselin Munoz, L3 to L5 Lamina and Spinous Process and Ligament, and consists of multiple fragments of bone and dense fibrous tissue measuring in aggregate 5.0 x 4.0 x 2.5 cm. Contact Center Assistant section, one cassette after decal. 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 B) Normocellular bone marrow with mixed trilineal hematopoiesis. C) Ligament tissue with dense fibrosis and myxoid degeneration. Signed Electronically by: FOREIGN BROWN MD 01/19/10 1214 -- -- DEPARTMENT OF PATHOLOGY, [address] [place] [address] [facility] Permit #[id number] Foreign Brown M.D. Director Chaz Kat M.D. Patient Information Coordinator Dir mariam -- 01/12 14 ANY BLOOD [...] change was based on recommendations from the [place] [employer]. 18 Please note change in [...] Anemia Procedures Date CPT Code Description Status 10/14/201788749 Removal Implant Deep Wire,Screw Nail,Trevon Or Plate Completed 10/14/201738977 Removal Implant Deep Wire,Screw Nail,Trevon Or Plate Completed 06/19/2016 31913 Walking Cast Completed 06/01/2016 92994 Walking Cast Completed 05/19/2016 12862 EKG, Interpretation Only Completed 05/10/2016 56590 Walking Cast Completed 04/26/2016 39913 Walking Cast Completed 04/24/2016 67429 Walking Cast Completed 04/13/2016 87125 Walking Cast Completed 04/03/2016 72065 Walking Cast Completed 03/29/2016 49590 Walking Cast Completed 03/22/2016 79302 Short Leg Cast Completed 03/15/2016 28671 Short Leg Cast Completed 02/06/2016 62761 ORIF Open TX Bimalleolar Ankle FX Includes Internal Completed Fixation 02/06/2016 54645 ORIF Open TX Bimalleolar Ankle FX Includes Internal Completed Fixation 02/01/2016 52367 EEG Recording Awake & Asleep Completed 01/20/2016 06331 EEG Recording Awake & Drowsy Completed 01/19/2016 97521 EKG, Interpretation Only Completed 01/17/2016 86850 ECHO Transthorasic Realtime 2D W Doppler & Color Flow Completed Hosp 05/27/2014 27204 EKG Tracing & Interpretation Completed 04/24/2013 09032 Stress Test Completed 04/24/2013 60156 Myocardial Perfusion Imaging Tomographic (Spect) Completed Multiple Studies 04/10/2013 23916 EKG Tracing & Interpretation Completed 12/03/2012 57566 EKG, Interpretation Only Completed 12/02/2012 52824 ECHO Transthorasic Realtime 2D W Doppler & Color Flow Completed Hosp 01/12/2010 47709 Pimentel/Facet/Foraminotomy;Ea Addl Segment; Cerv, Thora, Or Completed Lumbar 01/12/2010 81062 Pimentel/Facet/Foraminotomy;Vertebral Segment; Lumbar Completed Encounters Type Date Location Provider CPT E/M Dx Office Visit 10/17/2017 8:15a [facility] Shruti Clarke D.O. 24894 I69.320 I48.0 T81.4xxS E11.9 Office Visit 10/15/2017 10:18a [facility] Taniya Appiah, 08094 S91.002A [facility]oc Hospitalists Valdo I10 E11.610 Z78.9 Office Visit 10/14/2017 10:17a [facility] Taniya Appiah, 72959 S91.002A [facility] MMartell I10 E11.610 Z78.9 Office Visit 10/13/2017 10:13a [facility] Taniya Appiah, 23664 S91.002A [facility] Valdo I10 E11.610 Z78.9 Office Visit 10/13/2017 10:12a [facility], 23511 S91.002A Juju Lyle E11.610 Office Visit 10/12/2017 10:12a [facility] Taniya Appiah, 39850 S91.002A [facility] M.D. I10 E11.610 Z78.9 Office Visit 09/26/2017 10:00a [facility] [place], 71172 M14.622 Juju Lyle Office Visit 09/16/2017 9:30a [facility] Rianna Dias, 53961 N39.0 FINANCIAL DEVELOPER R31.0 Office Visit 09/13/2017 9:30a [facility] [place] [place] [address] I69.320 M25.572 I48.0 M25.512 E11.9 I10 Office Visit 08/27/2017 8:15a [facility] Katherin Lind, OBEY 73978 M25.572 Office Visit 06/27/2017 9:15a [facility] [place], 69653 M19.172 Of Juju Lyle Office Visit 05/29/2017 8:45a [facility] Rianna Mccallcarolynn, OBEY 51743 M25.512 Office Visit 05/21/2017 8:15a [facility] Rianna MccallOBEY pradhan 05433 I63.10 I48.0 Z51.81 Z79.01 Office Visit 05/09/2017 8:30a [facility] [place] [place] [address] S70.312A S70.311A Office Visit 04/26/2017 10:00a [facility] [place] [address] I63.40 S82.842G R47.01 Z99.3 Office Visit 04/23/2017 8:15a [facility] [place] [address] I48.2 Z79.01 I10 E03.9 Z79.4 E11.9 E78.5 Z99.3 Office Visit 04/18/2017 8:00a [facility] Katherin Lind, OBEY 47966 R05 Office Visit 03/26/2017 8:45a [facility] [place], 02625 S82.842D Of Juju Lyle M14.672 Office Visit 03/13/2017 8:00a [facility] [place] [address] M25.572 Office Visit 02/13/2017 8:00a [facility] Taniya Appiah M.D. 29674 I63.10 I48.0 Z51.81 Z79.01 Office Visit 01/29/2017 10:00a [facility] Taniya Appiah M.D. 04227 I63.10 I48.0 Z51.81 Z79.01 Office Visit 12/07/2016 10:15a [facility] [place], 88087 M14.672 Juju Lyle M25.372 Office Visit 09/18/2016 10:30a [facility] [place] 32839 S82.842D Of Juju Lyle Office Visit 08/24/2016 10:00a [facility] [place] 08227 S82.842D Of CPolly Lyle Office Visit 07/24/2016 9:30a [facility] [place] 62373 S82.842D Of Juju Lyle Office Visit 06/19/2016 9:30a [facility] [place] 37789 S82.842D Of Juju Lyle Office Visit 06/01/2016 9:15a [facility] [place] 74116 S82.842D Of Juju Lyle S82.842D Office Visit 05/24/2016 12:55p [facility] Key Pelletier, 87450 K92.2 Hospitalists M.DFrancisco I48.91 E11.8 I10 Office Visit 05/23/2016 12:55p [facility], [place], 92876 K92.2 Hospitalists M.D. I48.91 E11.8 I10 Office Visit 05/22/2016 12:55p [facility], [place], 79722 K92.2 Hospitalists M.D. I48.91 E11.8 I10 Office Visit 05/21/2016 12:54p [facility], [place], 65941 K92.2 Hospitalists M.D. I48.91 E11.8 Office Visit 05/20/2016 12:54p [facility], Taniya Appiah, 71059 K92.2 Hospitalists M.DFrancisco I48.91 E11.8 I10 Office Visit 05/19/2016 12:53p [facility] Assoc,pc Taniya Appiah, 08906 K92.2 Hospitalists Valdo I48.91 E11.8 I10 Office Visit 05/18/2016 12:53p [facility] Rob Parr, 98728 K92.2 Hospitalists N.P. I48.91 E11.8 I10 Office Visit 05/10/2016 9:15a [facility] [place], 52049 S82.842D Of Juju Lyle S82.842D Office Visit 02/08/2016 2[facility]p [facility] [address]326 E11.9 Assoc,pc PA Hospitalists Z96.7 Z78.9 Z87.81 Office Visit 02/07/2016 2:31p [facility] [address] E11.9 Assoc,pc PA Hospitalists Z96.7 Z78.9 Z87.81 Office Visit 02/06/2016 2:28p [facility] 69462 E11.9 Assoc,pc PA Hospitalists Z96.7 Z78.9 Z87.81 Office Visit 02/04/2016 3:50p [facility] [place], 93715 S82.842A Juju Lyle Office Visit 02/04/2016 4:13p [facility] [place], 05337 S82.852A Juju Lyle Office Visit 02/03/2016 9:15a [facility] [place]quidea Qu[place] [address] I69.320 I10 S82.842A Z79.01 Office Visit 02/02/2016 7:00a [facility] [place], 18990 S82.842A Juju Lyle Office Visit 02/02/2016 1:49p [facility] Rob Parr, 80318 R47.01 Hospitalists N.P. I48.2 N30.01 I63.412 Office Visit 02/01/2016 2:43p [facility] Ambrocio Krause , 49943 R47.01 Assoc, Hospitalists Valdo I48.2 N30.01 I63.412 Office Visit 01/24/2016 12:44p [facility], Varun Hodges, 86109 I63.9 Hospitalists M.D. E11.9 E66.01 Z79.4 Office Visit 01/23/2016 12:43p [facility], Varun Hodges, 43745 I63.9 Hospitalists M.D. E11.9 E66.01 Z79.4 Office Visit 01/22/2016 11:33a [facility] Wu Hernandez 52271 I63.512 Valdo Valiente I65.29 I10 I48.91 Office Visit 01/22/2016 12:43p [facility] Taniya Appiah, 62661 I63.9 Hospitalists M.DFrancisco E11.9 E66.01 Z79.4 Office Visit 01/21/2016 12:12p [facility] Wu Hernandez 57919 I63.512 Valdo Valiente I48.91 I65.29 I10 Office Visit 01/21/2016 12:42p [facility] Taniya Appiah, 40652 I63.9 Hospitalists M.DFrancisco E11.9 E66.01 Z79.4 Office Visit 01/20/2016 12:09p [facility] Myra Marquez, 08372 I63.512 Valdo R25.1 R40.0 I10 I48.91 Office Visit 01/20/2016 12:42p [facility], [place] [address] I63.9 Hospitalists E11.9 E66.01 Z79.4 Office Visit 01/19/2016 12:41p [facility], [place] [address] I63.9 Hospitalists E11.9 E66.01 Z79.4 Office Visit 01/19/2016 12:06p [facility] Myra Marquez, 31701 I63.512 Valdo I10 I48.91 R25.1 R40.0 Office Visit 01/18/2016 1:56p [facility] Myra Marquez 61527 I63.512 M.D. I10 I48.91 I65.29 Office Visit 01/18/2016 12:41p [facility], [place] [address] I63.9 Hospitalists E11.9 E66.01 Z79.4 Office Visit 01/17/2016 12:40p [facility], [place] [address] I63.9 Hospitalists E11.9 E66.01 Z79.4 Office Visit 01/17/2016 9:22a [facility] Darek Brown, 11924 I63.512 I10 I48.91 Office Visit 01/16/2016 12:39p [facility], Blane Martinez M.D. 50336 G45.9 Hospitalists E11.9 E66.01 Z79.4 Office Visit 05/27/2014 9:30a [facility] Tiffany Bustamante, 01189 427.31 Mgmt Consultant M.DFrancisco Office Visit 04/10/2013 1:00p [facility] Tiffany Bustamante, 16393 427.31 Mgmt Consultant Guillermo.Tiffany 786.50 V72.81 794.39 Office Visit 12/11/2012 3:51p [facility], Blane Martinez M.D. 51635 578.1 Hospitalists 280.0 Office Visit 12/10/2012 3:50p [facility], Blane Martinez M.D. 11042 578.1 Hospitalists 280.0 Office Visit 12/09/2012 3:50p [facility], [place], 78079 578.1 Hospitalists MFranciscoDFrancisco 280.0 Office Visit 12/08/2012 3:50p [facility], [place], 77209 578.1 Hospitalists Valdo 280.0 Office Visit 12/06/2012 3:36p [facility], [place], 57883 285.1 Hospitalists Valdo 578.9 411.89 Office Visit 12/05/2012 3:36p [facility], [place], 69761 285.1 Hospitalists Valdo 578.9 411.89 Office Visit 12/04/2012 3:36p [facility], [place], 16931 285.1 Hospitalists M.DFrancisco 578.9 411.89 Office Visit 12/03/2012 4:07p [facility] Jalen Snyder M.D., 14292 794.31 [facility], FSCAI 411.1 424.1 Office Visit 12/03/2012 3:35p [facility] Assoc, [place], 32801 285.1 Hospitalists MMartell 578.9 411.89 Office Visit 12/02/2012 3:35p [facility] Assoc, [place], 77028 285.1 Hospitalists M.Tiffany 578.9 794.31 Office Visit 06/18/2012 1:20p [facility] Dany Iqbal, 29976 724.02 Of Mgmt Consultant M.D. Office Visit 06/12/2011 1:20p [facility] Dany Iqbal, 73768 724.02 Of Mgmt Consultant M.D. Office Visit 05/15/2011 3:00p [facility] Dany Iqbal, 22638 724.02 Of Mgmt Consultant M.D. Office Visit 12/26/2010 11:00a [facility] Dany Iqbal 49787 724.02 Of Mgmt Consultant M.D. Office Visit 09/25/2010 11:40a [facility] Dany Iqbal, 41604 724.02 Of Mgmt Consultant M.D. Office Visit 06/26/2010 9:40a [facility] Dany Iqbal 94638 724.02 Of Mgmt Consultant M.D. Office Visit 01/09/2010 3:40p [facility] Dany Iqbal, 75850 724.02 Of Mgmt Consultant M.D. Office Visit 12/09/2009 10:40a [facility] Dany Iqbal 70176 724.02 Of Mgmt Consultant M.D. Office Visit 11/22/2009 1:40p [facility] Dany Iqbal, 10023 781.2 Of Mgmt Consultant M.D. Office Visit 10/14/2009 9:20a [facility] Dany Iqbal 81395 781.2 Of Mgmt Consultant M.D. Office Visit 10/04/2009 1:40p [facility] Dany Iqbal, 09813 781.2 Of Vamsi Lyle Plan of Care Future Appointment(s):12/03/2017 9:45 am - Rio Tmi M.D. at [facility]12/26/2017 9:30 am - [place] Tim M.D. 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
--- OUTSIDE RECORDS SUMMARY | 2017-12-11 20:37 | XMS REPORT ---
:1945 External Reference #:[id number] Author Organization [facility] [employer] Address [address] [address] Phone [phone] Care Team Providers Name Role Phone Patient's Choice Primary Care Physician Unavailable Payers Type Date Identification Numbers Payment Provider Subscriber Medicare Primary Effective: Policy Number: Medicare Joselin Munoz 1996 [id number] PayID: [id number] [address] [place] [address] Medigap Part B Effective: 2012 Policy Number: BS Facets Joselin Munoz [id number] Expires: 2017 PayID: [id number] [address] [address] [place] [address] Medigap Part B Effective: 2016 Policy Number: [id number] Medicaid Joselin Munoz Expires: 2017 Group Name: 1 1 [address] PayID: [id number] [place] [address] Commercial Policy Number: [id number] Robbie Joselin Munoz PayID: [id number] [address] [place] [address] Problems Date Description Provider Status Onset: 04/10/2013 [...] Abrasion and/or friction burn of Katherin Lind, 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 Active Onset: 10/01/2017 Morbid obesity Varun Hodges M.D. 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 Active Onset: 10/01/2017 Abnormal involuntary movement Myra Marquez M.D. Active Onset: 10/01/2017 Disturbance of consciousness Myra Marquez M.D. 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., [facility], Active coronary artery w/o ang pctrs FSCAI [...] Onset: 10/01/2017 Impending infarction Jalen Snyder M.D., [facility], Active [facility] Onset: 10/01/2017 Aortic valve disorder Jalen Snyder M.D., [facility], Active [facility] Onset: 10/01/2017 Edema Danielito Juan R Owens M.D., Active [facility], [facility] Onset: 10/01/2017 Spinal [...] tab every I48.91 s night or as Touchcarolynn, shiraz BARNHART Levothyroxine 10/01 Active Tablets 125mcg 30tab 1 [...] L ts shoulder, [place], remove Q PM PLUG OVERWRAP MACHINE TENDER Miralax 10/01 Active Powder 3350NF 1unit 17 gm Dany J. s mixed w/ 8 Pollack, oz M.D. water/juice On even days, hold for [...] Tablets 500mg 30tab 1 atb PO Vince, s bid Shruti, DO Vitamin D3 Ultra Active Tablets 14645Gdwn one by E55.9 Vince, Potency / mouth Q Shruti, Month DO Baclofen Active 5mg q 8hrs prn G89.29 Vince, Shruti, DO Calazime Skin Active Paste apply to Vince, Protectant/Chu / buttocks Q Shruti, mine shift DO Keflex Active Capsules 250mg q 8 hours x [place] 10 days MD Rio Cholecalciferol Active Powder [...] Waller /2009 hours prior Farida, - to mri october M.DFrancisco 04/09 take one more q 1 hr prn anxiety Levothyroxine Hx Tablets 125mcg 90tab 1 po qd Unknown s - 03/[address] 20mg 90cap 1 po qd Unknown / s - 03/16 Multivitamins Hx Capsules 30cap 1 capsule Unknown / s ophelia;y - 03/16 Oxycodone HCL Hx [...] 4 - times daily 03/16 as needed /2017 Warfarin Sodium Hx Tablets 2.5mg Unknown /0000 - 10/01 Skin Prep Wipes Hx Unknown /0000 - 10/01 Miconazole Hx Cream 2% apply twice Unknown Nitrate /0000 a day until - clear 10/01 Hydrocortisone Hx Ointment 1% Unknown /0000 - 10/01 Medications Administered in Office Medication Date Status Form Strength Qnty SIG Indications Ordering Provider Inj, Administered Injection Ruben Allen Regadenoson, Sangeetha Bustamante M.D. 0.1 MG Technetium TC Administered Injection Ruben Allen 99M 013 Valdo Bustamante Tetrofosmin, Per Unit Dose Up To 40 Millicuries Vital Signs Date Vital Result Comment 11/12/2017 Height 65 inches 5'5" Weight 303.00 [...] Color YELLOW Yellow Appearance-Urine CLEAR Clear Specific Alexander-Ur 1.014 1.010-1.030 Esterase-Urine 2+ Negative Nitrite NEGATIVE Negative Olkrnpkncslz-An-ICW NEGATIVE Negative Protein-Urine NEGATIVE Negative PH-Urine 5.5 [...] 13 Abs Basophils 0 0-0.2 13 1 Canvass Manager: [id number] BEL RENNER 2 Canvass Manager: [id number] IVANNA JUN 12 Because ethnic data is [...] change was based on recommendations from the [place] [employer]. 6 Please note change in reference range effective 07 . 7 A metabolite of Naproxen, O-desmethylnaproxen, has been shown to interfere with the [place] method for measuring total bilirubin. Samples from [...] 5 DAYS 12 ---- RUN DATE: 01/19/10 [facility] NMI LIVE PAGE 1 RUN TIME: 1215 Specimen Inquiry RUN USER: INTERFACE -- Name: JOSELIN MUNOZ Status: DIS IN Re01/12/10 Age/Sex: 64/F Unit#: [id number] Location: [facility]. : 41 -- Specimen: [id number] [facility] Spec Date: 01/12/[address]: Dany bailey MD Spec Type: SURGICAL P Received: 01/12/10-8194 Copies to: SPECIMEN L3 TO L5 LAMINA AND SPINUS PROCESS AND LIGAMENT HISTORY PRE-OP DIAGNOSIS: L3/L5 Lumbar stenosis. GROSS DESCRIPTION The specimen is received in formalin labelled Joselin Munoz, L3 to L5 Lamina and Spinous Process and Ligament, and consists of multiple fragments of bone and dense fibrous tissue measuring in aggregate 5.0 x 4.0 x 2.5 cm. Risk And Insurance Manager section, one cassette after decal. 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 B) Normocellular bone marrow with mixed trilineal hematopoiesis. C) Ligament tissue with dense fibrosis and myxoid degeneration. Signed Electronically by: FOREIGN BROWN MD 01/19/10 1214 -- -- DEPARTMENT OF PATHOLOGY, [address] [place] [address] [facility] Permit #[id number] Foreign Brown M.D. Director Chaz Kat M.D. Enrollment Eligibility Representative Dir mariam -- 01/12 14 ANY BLOOD [...] change was based on recommendations from the [place] [employer]. 18 Please note change in [...] Anemia Procedures Date CPT Code Description Status 10/14/201722488 Removal Implant Deep Wire,Screw Nail,Trevon Or Plate Completed 10/14/201778560 Removal Implant Deep Wire,Screw Nail,Trevon Or Plate Completed 06/19/2016 94990 Walking Cast Completed 06/01/2016 49749 Walking Cast Completed 05/19/2016 04114 EKG, Interpretation Only Completed 05/10/2016 45103 Walking Cast Completed 04/26/2016 76600 Walking Cast Completed 04/24/2016 63013 Walking Cast Completed 04/13/2016 99980 Walking Cast Completed 04/03/2016 91704 Walking Cast Completed 03/29/2016 99099 Walking Cast Completed 03/22/2016 71868 Short Leg Cast Completed 03/15/2016 43663 Short Leg Cast Completed 02/06/2016 01361 ORIF Open TX Bimalleolar Ankle FX Includes Internal Completed Fixation 02/06/2016 42585 ORIF Open TX Bimalleolar Ankle FX Includes Internal Completed Fixation 02/01/2016 54847 EEG Recording Awake & Asleep Completed 01/20/2016 76162 EEG Recording Awake & Drowsy Completed 01/19/2016 40074 EKG, Interpretation Only Completed 01/17/2016 37820 ECHO Transthorasic Realtime 2D W Doppler & Color Flow Completed Hosp 05/27/2014 49415 EKG Tracing & Interpretation Completed 04/24/2013 55563 Stress Test Completed 04/24/2013 16513 Myocardial Perfusion Imaging Tomographic (Spect) Completed Multiple Studies 04/10/2013 15983 EKG Tracing & Interpretation Completed 12/03/2012 94158 EKG, Interpretation Only Completed 12/02/2012 21926 ECHO Transthorasic Realtime 2D W Doppler & Color Flow Completed Hosp 01/12/2010 37685 Pimentel/Facet/Foraminotomy;Ea Addl Segment; Cerv, Thora, Or Completed Lumbar 01/12/2010 70065 Pimentel/Facet/Foraminotomy;Vertebral Segment; Lumbar Completed Encounters Type Date Location Provider CPT E/M Dx Office Visit 10/17/2017 8:15a [facility] Shruti Clarke D.O. 18085 I69.320 I48.0 T81.4xxS E11.9 Office [facility] 7[address]85 S91.002A [facility] Valdo I10 E11.610 Z78.9 Office Visit 10/14/2017 [facility] 67520 S91.002A [facility] Hospitalists Valdo I10 E11.610 Z78.9 Office Visit 10/13/2017 10[facility]a [facility] 02367 S91.002A [facility], Hospitalists MMartell I10 E11.610 Z78.9 Office Visit 10/13/2017 10:12a [facility], 49288 S91.002A Juju Lyle E11.610 Office Visit 10/12/2017 10:12a [facility] Taniya Appiah, 86454 S91.002A [facility], Hospitalists Valdo I10 E11.610 Z78.9 Office Visit 09/26/2017 10:00a [facility] [place], 08685 M14.622 Juju Lyle Office Visit 09/16/2017 9:30a [facility] Rianna Mccallcarolynn, 03635 N39.0 PLUG OVERWRAP MACHINE TENDER R31.0 Office Visit 09/13/2017 9:30a [facility] [place] [address] I69.320 M25.572 I48.0 M25.512 E11.9 I10 Office Visit 08/27/2017 8:15a [facility] [place] [address] M25.572 Office Visit 06/27/2017 9:15a [facility] [place], 65853 M19.172 Of Juju Lyle Office Visit 05/29/2017 8:45a [facility] Rianna CalOBEY pradhan 75792 M25.512 Office Visit 05/21/2017 8:15a [facility] [address] I63.10 I48.0 Z51.81 Z79.01 Office Visit 05/09/2017 8:30a [facility] [place] [address] S70.312A S70.311A Office Visit 04/26/2017 10:00a [facility] [address] I63.40 S82.842G R47.01 Z99.3 Office Visit 04/23/2017 8:15a [place] [address] I48.2 Z79.01 I10 E03.9 Z79.4 E11.9 E78.5 Z99.3 Office Visit 04/18/2017 8:00a [facility] [place] [address] R05 Office Visit 03/26/2017 8:45a [facility] [place], 22643 S82.842D Of Juju Lyle M14.672 Office Visit 03/13/2017 8:00a [place] [address] M25.572 Office Visit 02/13/2017 8:00a [facility] Taniya Appiah M.D. 73316 I63.10 I48.0 Z51.81 Z79.01 Office Visit 01/29/2017 10:00a [facility] Taniya Appiah M.D. 53991 I63.10 I48.0 Z51.81 Z79.01 Office Visit 12/07/2016 10:15a [facility], 64365 M14.672 Juju Lyle M25.372 Office Visit 09/18/2016 10:30a [facility] [place] 07531 S82.842D Of Juju Lyle Office Visit 08/24/2016 10:00a [facility] [place] 08992 S82.842D Of CPolly Lyle Office Visit 07/24/2016 9:30a [facility] [place] 53094 S82.842D Of Juju Lyle Office Visit 06/19/2016 9:30a [facility] [place] 22200 S82.842D Of Juju Lyle Office Visit 06/01/2016 9:15a [facility] [place] 66878 S82.842D Of Juju Lyle S82.842D Office Visit 05/24/2016 12:55p [facility] [place], 66484 K92.2 Hospitalists M.DFrancisco I48.91 E11.8 I10 Office Visit 05/23/2016 12:55p [facility], [place], 13188 K92.2 Hospitalists M.D. I48.91 E11.8 I10 Office Visit 05/22/2016 12:55p [facility], [place], 28969 K92.2 Hospitalists M.D. I48.91 E11.8 I10 Office Visit 05/21/2016 12:54p [facility], [place], 47929 K92.2 Hospitalists M.D. I48.91 E11.8 Office Visit 05/20/2016 12:54p [facility], Taniya Appiah, 01562 K92.2 Hospitalists M.D. I48.91 E11.8 I10 Office Visit 05/19/2016 12:53p [facility], Taniya Appiah, 79404 K92.2 Hospitalists M.D. I48.91 E11.8 I10 Office Visit 05/18/2016 12:53p [facility], Rob Parr, 08777 K92.2 Hospitalists Stanley I48.91 E11.8 I10 Office Visit 05/10/2016 9:15a [facility] [place], 77426 S82.842D Of Juju Lyle S82.842D Office Visit 02/08/2016 2:32p [facility] 42216 E11.9 Assoc,pc PA Hospitalists Z96.7 Z78.9 Z87.81 Office Visit 02/07/2016 2:31p [facility] 18622 E11.9 Assoc,pc PA Hospitalists Z96.7 Z78.9 Z87.81 Office Visit 02/06/2016 2:28p [facility] Jose Angel SalazarYani, 98440 E11.9 Assoc,pc PA Hospitalists Z96.7 Z78.9 Z87.81 Office Visit 02/04/2016 3:50p [facility] [place], 70717 S82.842A Juju Lyle Office Visit 02/04/2016 4:13p [facility] [place], 53418 S82.852A Juju Lyle Office Visit 02/03/2016 9:15a [facility] [place]quidea Qu[place] [address] I69.320 I10 S82.842A Z79.01 Office Visit 02/02/2016 7:00a [facility] [place], 00621 S82.842A Juju Lyle Office Visit 02/02/2016 1:49p [facility], Rob Parr, 90674 R47.01 Hospitalists N.PFrancisco I48.2 N30.01 I63.412 Office Visit 02/01/2016 2:43p [facility] [place], [address] R47.01 Assoc, Micha Lyle I48.2 N30.01 I63.412 Office Visit 01/24/2016 12:44p [facility], Varun Hodges, 52923 I63.9 Hospitalists M.D. E11.9 E66.01 Z79.4 Office Visit 01/23/2016 12:43p [facility], Varun Hodges, 31620 I63.9 Hospitalists M.D. E11.9 E66.01 Z79.4 Office Visit 01/22/2016 11:33a [facility] Wu Hernandez 02060 I63.512 Valdo Valiente I65.29 I10 I48.91 Office Visit 01/22/2016 12:43p [facility], Taniya Appiah, 28515 I63.9 Hospitalists M.DFrancisco E11.9 E66.01 Z79.4 Office Visit 01/21/2016 12:12p [facility] Wu Hernandez 59608 I63.512 Valdo Valiente I48.91 I65.29 I10 Office Visit 01/21/2016 12:42p [facility], Taniya Bijal, 47612 I63.9 Hospitalists M.DFrancisco E11.9 E66.01 Z79.4 Office Visit 01/20/2016 12:09p [facility] Myra Marquez, 19678 I63.512 Valdo R25.1 R40.0 I10 I48.91 Office Visit 01/20/2016 12:42p [facility], [place] [address] I63.9 Hospitalists E11.9 E66.01 Z79.4 Office Visit 01/19/2016 12:41p [facility], [place] [address] I63.9 Hospitalists E11.9 E66.01 Z79.4 Office Visit 01/19/2016 12:06p [facility] Myra Marquez, 87323 I63.512 Valdo I10 I48.91 R25.1 R40.0 Office Visit 01/18/2016 1:56p [facility] Myra Marquez 40251 I63.512 MMartell I10 I48.91 I65.29 Office Visit 01/18/2016 12:41p [facility], [place] [address] I63.9 Hospitalists E11.9 E66.01 Z79.4 Office Visit 01/17/2016 12:40p [facility], [place] [address] I63.9 Hospitalists E11.9 E66.01 Z79.4 Office Visit 01/17/2016 9:22a [facility] Darek Kevin, 77636 I63.512 I10 I48.91 Office Visit 01/16/2016 12:39p [facility], Blane Martinez M.D. 54003 G45.9 Hospitalists E11.9 E66.01 Z79.4 Office Visit 05/27/2014 9:30a [facility] Tiffany Bustamante, 31758 427.31 Vamsi Lyle Office Visit 04/10/2013 1:00p [facility] Tiffany Bustamante, 43748 427.31 Vamsi Li.Tiffany 786.50 V72.81 794.39 Office Visit 12/11/2012 3:51p [facility], Blane Martinez M.D. 48985 578.1 Hospitalists 280.0 Office Visit 12/10/2012 3:50p [facility], Blane Martinez M.D. 27869 578.1 Hospitalists 280.0 Office Visit 12/09/2012 3:50p [facility], Key Pelletier, 64988 578.1 Hospitalists M.D. 280.0 Office Visit 12/08/2012 3:50p [facility], [place], 28107 578.1 Hospitalists M.D. 280.0 Office Visit 12/06/2012 3:36p [facility], [place], 93581 285.1 Hospitalists M.DFrancisco 578.9 411.89 Office Visit 12/05/2012 3:36p [facility], [place], 45190 285.1 Hospitalists M.DFrancisco 578.9 411.89 Office Visit 12/04/2012 3:36p [facility], [place], 23176 285.1 Hospitalists M.DFrancisco 578.9 411.89 Office Visit 12/03/2012 4:07p [facility] Jalen Snyder M.D., 60538 794.31 [facility], FSCAI 411.1 424.1 Office Visit 12/03/2012 3:35p [facility], [place], 32144 285.1 Hospitalists M.Tiffany 578.9 411.89 Office Visit 12/02/2012 3:35p [facility], [place], 33986 285.1 Hospitalists M.DFrancisco 578.9 794.31 Office Visit 06/18/2012 1:20p [facility] Dany Iqbal, 06839 724.02 Of Blindstitch Hemmer M.D. Office Visit 06/12/2011 1:20p [facility] Dany Iqbal, 22415 724.02 Of Blindstitch Hemmer M.D. Office Visit 05/15/2011 3:00p [facility] Dany Iqbal 67819 724.02 Of Blindstitch Hemmer M.D. Office Visit 12/26/2010 11:00a [facility] Dany Iqbal, 28786 724.02 Of Blindstitch Hemmer M.D. Office Visit 09/25/2010 11:40a [facility] Dany Iqbal, 84878 724.02 Of Blindstitch Hemmer M.D. Office Visit 06/26/2010 9:40a [facility] Dany Iqbal, 06221 724.02 Of Blindstitch Hemmer M.D. Office Visit 01/09/2010 3:40p [facility] Dany Iqbal 22486 724.02 Of Blindstitch Hemmer M.D. Office Visit 12/09/2009 10:40a [facility] Dany Iqbal 78906 724.02 Of Blindstitch Hemmer M.D. Office Visit 11/22/2009 1:40p [facility] Dany Iqbal 15114 781.2 Of Blindstitch Hemmer M.D. Office Visit 10/14/2009 9:20a [facility] Dany Iqbal 22735 781.2 Of Blindstitch Hemmer M.D. Office Visit 10/04/2009 1:40p [facility] Dany Iqbal, 26234 781.2 Of Blindstitch Hemmer M.DFrancisco Plan of Care Future Appointment(s):11/19/2017 9:15 am - [place] M.D. at [facility]12/26/2017 9:30 am - [place] [facility] M.D. at [facility]11/12/2017 - [place] Tim M.D.S91.002D Unspecified open wound, left ankle, subsequent encounterFollow up:7-10 days
[2017-12-11 20:49] LABS: ABS Basophils 0.1 10^3/ul (0-0.2); ABS Eosinophils 0.6 10^3/ul (0-0.6); ABS Lymphocytes 1.6 10^3/ul (1.0-4.8); ABS Monocytes 0.7 10^3/ul (0-0.8); ABS Neutrophils 5.7 10^3/ul (1.5-7.7); ABS Nucleated RBC 0 10^3/ul; Eosinophil % 6.8 % (0-6); Hematocrit 37 % (35-47); Hemoglobin 12.2 g/dl (12.0-16.0); Lymphocyte % 18.2 % (25-47); Mean Corpuscular HGB Conc 33 g/dl (31-36); Mean Corpuscular Hemoglobin 31 pg (27-31); Mean Corpuscular Volume 91 fL (80-97); Mean Platelet Volume 8.9 um3 (7.4-10.4); Nucleated Red Blood Cells % 0; Platelet Count 190 10^3/ul (150-450); Red Blood Count 3.99 10^6/ul (4.00-5.40); Red Cell Distribution Width 14 % (10.5-15); White Blood Count 8.6 10^3/ul (3.5-10.8)
[2017-12-11 20:54] LABS: INR 1.83 (0.77-1.02)
[2017-12-11 21:06] LABS: EGFR Non-African American 31.5 (>60)
[2017-12-11 21:23] VITALS: BP 149/66
--- NOTE | 2017-12-11 22:36 | ED ---
Dea Reyes Simon, scribed for Tricia Haque MD on 12/11/17 at 2016 . Lower Extremity - HPI Summary HPI Summary: This patient is a 72 year old F presenting to [facility] from [facility] with a chief complaint of intermittent left ankle/leg pain at 3/10 intensity for 1 week. 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 PMHx ankle fx, cast off 2 weeks ago to remove screws, then replaced, currently on now. Pt endorses taking oxycodone and one other pain medication for the fx. She denies fevers, tachycardia. PMHx DM, CVA 1 year ago. She endorses an allergy to Dilaudid. - History of Current Complaint Stated Complaint: LT LEG PAIN Hx Obtained From: Patient, EMS Mechanism Of Injury: Unknown Onset of Pain: Days, Prior to Arrival Onset/Duration: Days Severity Initially: Moderate Severity Currently: Moderate Pain Intensity: 3 Pain Scale Used: 0-10 Numeric Timing: Constant Location: Is Discrete @ - left lateral ankle, medial left calf. Associated Signs And Symptoms: Positive: Knee Pain - bilateral, Other - Cast makes identification of many sx difficult.. Negative: Fever Aggravating Factor(s): Nothing Alleviating Factor(s): Other - prescribed oxycodone Able to Bear Weight: No - Allergies/Home Medications Allergies/Adverse Reactions: Allergies Allergy/AdvReac Type Severity Reaction Status Date / Time hydromorphone Allergy Altered Verified 12/11/17 20:15 Mental Status rivaroxaban [From Xarelto] Allergy Bleeding Verified 12/11/17 20:15 Home Medications: Home Medications Acetaminophen [APAP] 325 mg PO Q6H PRN 12/11/17 [History Confirmed 12/11/17] PMH/Surg Hx/FS Hx/Imm Hx Endocrine/Hematology History: Reports: Hx Diabetes - IDDM, Hx Thyroid Disease - hypothyroid, Hx Anemia Cardiovascular History: Reports: Hx Atrial Fibrillation, Hx Coronary Artery Disease, Hx Hypercholesterolemia, Hx Hypertension, Other Cardiovascular Problems /Disorders - A Fib, myocardial stenosis Denies: Hx Pacemaker/ICD Respiratory History: Reports: Hx Asthma, Hx Sleep Apnea GI History: Reports: Hx Gastroesophageal Reflux Disease, Hx Gastrointestinal Bleed, Other GI Disorders - GI BLEED History: Reports: Hx Kidney Infection Denies: Hx Dialysis, Hx Renal Disease Musculoskeletal History: Reports: Hx Arthritis, Other Musculoskeletal History - CHRONIC BACK PAIN, bilat knee replacements, recent L ankle fracture Sensory History: Reports: Hx Cataracts - Implant surgery L eye 2007, Hx Contacts or Glasses Denies: Hx Hearing Aid, Hx Hearing Problem Opthamlomology History: Reports: Hx Cataracts - Implant surgery L eye 2007, Hx Contacts or Glasses Neurological History: Reports: Hx CVA - with right-sided sequela, Hx Transient Ischemic Attacks (TIA) - "Mini-strokes" 20 yrs ago Denies: Hx Dementia, Hx Developmental Delay, Hx Headaches, Hx Migraine, Hx Nerve Disease, Hx Seizures, Hx Spinal Cord Injury, Other Neuro Impairments/ Disorders Psychiatric History: Reports: Hx Anxiety, Hx Depression, Other Psychiatric Issues/Disorders - claustrophobia Denies: Hx Panic Disorder - Cancer History Hx Chemotherapy: No Hx Radiation Therapy: No - Surgical History Surgery Procedure, Year, and Place: R knee replacement 2010, L3/L4 laminectomy. left knee replacement 2012. L ankle ORIF 01/10/16 Hx Anesthesia Reactions: No - Immunization History Date of Tetanus Vaccine: 2010 Date of Influenza Vaccine: Fall 2011 Infectious Disease History: Reports: Hx Shingles - pt states about 6 months ago , ON HER BACK Denies: Hx Clostridium Difficile, Hx Hepatitis, Hx Human Immunodeficiency Virus (HIV), Hx of Known/Suspected MRSA, Hx Tuberculosis, History Other Infectious Disease - Family History Known Family History: Positive: Hypertension, Other - lung cancer (father), brain cancer (brother) Negative: Cardiac Disease, Diabetes - Social History Occupation: Retired Lives: At [facility] Alcohol Use: None Substance Use Type: Reports: None Smoking Status (MU): Former Smoker Type: Cigarettes Have You Smoked in the Last Year: No Review of Systems Negative: Fever Positive: Arthralgia - knees bilaterally, left lateral ankle, Myalgia - left medial calf, Decreased ROM Neurological: Other - Aphasia s/p CVA 1 year ago Positive: Numbness - bilateral peripheral neuropathy All Other Systems Reviewed And Are Negative: Yes Physical Exam - Summary Physical Exam Summary: Appearance: Chronically ill-appearing, minimal pain distress, obese, dyphasic Skin: Warm, color reflects adequate perfusion, dry Head: Normal Head/Face inspection, atraumatic Eyes: Conjunctiva clear ENT: Normal inspection Neck: Supple, no nodes, no JVD Respiratory: Lungs clear, normal breath sounds, no respiratory distress Cardio: RRR, No murmur, pulses normal, brisk capillary refill Abdomen: Soft, nontender Bowel sounds: Present Musculoskeletal: Strength Intact/ROM intact, no calf tenderness RLE, no calf tenderness in cast leg by palpating with fingers in the cast, no edema RLE, no swelling of toes in cast leg, cast from toes to knee present LLE, pt indicates pain at lateral malleolus, cast is not warm or deformed, no odor from cast, able to place 1 finger along top and lower rims of cast, capillary refill <2 seconds, sensation not intact bilaterally (DM neuropathy). Psychological: Normal Neuro: Alert, muscle tone normal, no focal deficit Triage Information Reviewed: Yes Vital Signs On Initial Exam: Initial Vitals Resp 28 12/11/17 20:12 Vital Signs Reviewed: Yes Diagnostics - Vital Signs Vital Signs Temp Pulse Resp BP Pulse Ox 12/11/17 21:41 98.9 F 52 16 149/66 95 12/11/17 21:14 8 149/66 12/11/17 21:00 47 14 97 12/11/17 20:50 47 12 208/81 96 12/11/17 20:43 48 17 208/102 97 12/11/17 20:16 99 F 51 18 206/89 96 12/11/17 20:15 12 206/89 12/11/17 20:12 28 - Laboratory Lab Results: Lab Results 12/11/17 12/11/17 12/11/17 Range/Units 20:39 20:39 20:39 WBC 8.6 (3.5-10.8) 10^3/ul RBC 3.99 L (4.00-5.40) 10^6/ul Hgb 12.2 (12.0-16.0) g/dl Hct 37 (35-47) % MCV 91 (80-97) fL MCH 31 (27-31) pg MCHC 33 (31-36) g/dl RDW 14 (10.5-15) % Plt Count 190 (150-450) 10^3/ul MPV 8.9 (7.4-10.4) um3 Neut % (Auto) 66.2 (38-83) % Lymph % (Auto) 18.2 L (25-47) % [place] % (Auto) 8.0 H (0-7) % Eos % (Auto) 6.8 H (0-6) % Baso % (Auto) 0.8 (0-2) % Absolute Neuts (auto) 5.7 (1.5-7.7) 10^3/ul Absolute Lymphs (auto) 1.6 (1.0-4.8) 10^3/ul Absolute Monos (auto) 0.7 (0-0.8) 10^3/ul Absolute Eos (auto) 0.6 (0-0.6) 10^3/ul Absolute Basos (auto) 0.1 (0-0.2) 10^3/ul Absolute Nucleated RBC 0 10^3/ul Nucleated RBC % 0 ESR 71 H (0-40) mm/Hr INR (Anticoag Therapy) 1.83 H (0.77-1.02) Sodium (135-145) mmol/L Potassium (3.5-5.0) mmol/L Chloride (101-111) mmol/L Carbon Dioxide (22-32) mmol/L Anion Gap (2-11) mmol/L BUN (6-24) mg/dL Creatinine (0.51-0.95) mg/dL Est GFR ( Amer) (>60) Est GFR (Non-Af Amer) (>60) BUN/Creatinine Ratio (8-20) Glucose (70-100) mg/dL Lactic Acid 0.6 (0.5-2.0) mmol/L Calcium (8.6-10.3) mg/dL Total Bilirubin (0.2-1.0) mg/dL AST (13-39) U/L ALT (7-52) U/L Alkaline Phosphatase (34-104) U/L C-Reactive Protein (<8.01) mg/L Total Protein (6.4-8.9) g/dL Albumin (3.2-5.2) g/dL Globulin (2-4) g/dL Albumin/Globulin Ratio (1-3) // Range/Units 20:40 WBC (3.5-10.8) 10^3/ul RBC (4.00-5.40) 10^6/ul Hgb (12.0-16.0) g/dl Hct (35-47) % MCV (80-97) fL MCH (27-31) pg MCHC (31-36) g/dl RDW (10.5-15) % Plt Count (150-450) 10^3/ul MPV (7.4-10.4) um3 Neut % (Auto) (38-83) % Lymph % (Auto) (25-47) % [place] % (Auto) (0-7) % Eos % (Auto) (0-6) % Baso % (Auto) (0-2) % Absolute Neuts (auto) (1.5-7.7) 10^3/ul Absolute Lymphs (auto) (1.0-4.8) 10^3/ul Absolute Monos (auto) (0-0.8) 10^3/ul Absolute Eos (auto) (0-0.6) 10^3/ul Absolute Basos (auto) (0-0.2) 10^3/ul Absolute Nucleated RBC 10^3/ul Nucleated RBC % ESR (0-40) mm/Hr INR (Anticoag Therapy) (0.77-1.02) Sodium 139 (135-145) mmol/L Potassium 4.3 (3.5-5.0) mmol/L Chloride 106 (101-111) mmol/L Carbon Dioxide 25 (22-32) mmol/L Anion Gap 8 (2-11) mmol/L BUN 39 H (6-24) mg/dL Creatinine 1.60 H (0.51-0.95) mg/dL Est GFR ( Amer) 38.1 (>60) Est GFR (Non-Af Amer) 31.5 (>60) BUN/Creatinine Ratio 24.4 H (8-20) Glucose 143 H (70-100) mg/dL Lactic Acid (0.5-2.0) mmol/L Calcium 9.0 (8.6-10.3) mg/dL Total Bilirubin 0.30 (0.2-1.0) mg/dL AST 13 (13-39) U/L ALT 10 (7-52) U/L Alkaline Phosphatase 85 (34-104) U/L C-Reactive Protein 3.29 (<8.01) mg/L Total Protein 7.2 (6.4-8.9) g/dL Albumin 3.6 (3.2-5.2) g/dL Globulin 3.6 (2-4) g/dL Albumin/Globulin Ratio 1.0 (1-3) Result Diagrams: 12/11/17 20:39 12/11/17 20:40 Lab Statement: Any lab studies that have been ordered have been reviewed, and results considered in the medical decision making process. Lower Extremity Course/Dx - Course Course Of Treatment: A 72-year-old F presents to the ED with a CC of LLE pain @3 /10 intensity for 1 week. (+) mild aphasia, left ankle cast, decreased ROM. (-) fever, tachycardia. PMHx CVA 1 year ago, DM, screws out of ankle 2 weeks ago, cast removed and replaced. In the ED course, pt was given clonidine. Allergies noted, high blood pressure noted. Pt medications reviewed this visit. - Diagnoses Provider Diagnoses: Left leg pain, Cast in place on lower extremity, Poorly controlled blood pressure - Physician Notifications Discussed Care Of Patient With: Roro Leon - [id number] Time Discussed With Above Provider: 20:20 Instructed by Provider To: Other - discussed pt being in the ED, whether or not to remove cast, obtained background about fracture and pt PMHx related to fx. Discharge - Sign-Out/Discharge Documenting (check all that apply): Discharge/Admit/Transfer - home to [facility] - Discharge Plan Condition: Stable Disposition: HOME Patient Education Materials: Cast Care (ED) Referrals: Rio Tim MD [Medical Doctor] - 1 Day Sunny Baltazar MD [Primary Care Provider] - Additional Instructions: We discussed your care tonight with Ms Leon, the PA who works with Dr. Tim. She knows your cast history very well. Your labs tonight do not show any sign of infection. We have given you a copy of these labs to bring to Dr. Tim tomorrow. Dr. Tim will definitely see you tomorrow in the office. You will need to call him in the am, to find out the time. Continue your oxycodone as directed. Return to the ER if you have any new or worsening symptoms. Consult Consult: Dr. Leon [id number]: discussed PE of pt, findings, lab work The documentation as recorded by the Dea metz Simon accurately reflects the service I personally performed and the decisions made by me, Tricia Haque MD.
== END | disposition home or self-care (01) ==
LOC: ED 20:07
DX: M25.572 Pain in left ankle and joints of left foot (principal); S82.892D Other fracture of left lower leg, subsequent encounter for closed fracture with routine healing; X58.XXXD Exposure to other specified factors, subsequent encounter; I25.10 Atherosclerotic heart disease of native coronary artery without angina pectoris; I10 Essential (primary) hypertension; I69.354 Hemiplegia and hemiparesis following cerebral infarction affecting left non-dominant side; I69.320 Aphasia following cerebral infarction; E11.40 Type 2 diabetes mellitus with diabetic neuropathy, unspecified; Z88.8 Allergy status to other drugs, medicaments and biological substances; Z87.891 Personal history of nicotine dependence
CPT/HCPCS: 36415; 80053; 83605; 85025; 85610; 85652; 86140; 99283

== ENCOUNTER 2018-06-30 23:26 | Emergency (ER) | payer MEDICARE, MEDICAID ==
[2018-07-01 01:06] LABS: ABS Basophils 0.1 10^3/ul (0-0.2); ABS Eosinophils 0.4 10^3/ul (0-0.6); ABS Lymphocytes 1.7 10^3/ul (1.0-4.8); ABS Monocytes 0.6 10^3/ul (0-0.8); ABS Neutrophils 5.5 10^3/ul (1.5-7.7); ABS Nucleated RBC 0 10^3/ul; Eosinophil % 4.4 %; Hematocrit 39 % (35-47); Hemoglobin 12.6 g/dl (12.0-16.0); Lymphocyte % 20.2 %; Mean Corpuscular HGB Conc 33 g/dl (31-36); Mean Corpuscular Hemoglobin 30 pg (27-31); Mean Corpuscular Volume 92 fL (80-97); Mean Platelet Volume 8.5 fL (7.4-10.4); Nucleated Red Blood Cells % 0.1; Platelet Count 186 10^3/ul (150-450); Red Blood Count 4.21 10^6/ul (4.00-5.40); Red Cell Distribution Width 14 % (10.5-15); White Blood Count 8.2 10^3/ul (3.5-10.8)
[2018-07-01] MEDS ORDERED: Acetaminophen TAB* 325 MG PO ONE (01:17)
[2018-07-01 01:18] LABS: INR 2.25 (0.77-1.02)
[2018-07-01 01:23] LABS: Albumin 3.6 g/dL (3.2-5.2); Albumin/Globulin Ratio 1.1 (1-3); BUN/Creatinine Ratio 22.9 (8-20); C Reactive Protein 2.17 mg/L (<8.01); Calcium 9.4 mg/dL (8.6-10.3); EGFR Non-African American 26.2 (>60); Globulin 3.4 g/dL (2-4); Potassium 4.9 mmol/L (3.5-5.0); Total Bilirubin 0.4 mg/dL (0.2-1.0)
--- NOTE | 2018-07-01 01:47 | ED ---
Lower Extremity - HPI Summary HPI Summary: Patient from [facility] complains of left femur fracture diagnosed by x-ray today. Patient denies trauma, does complain of left leg pain 2 weeks, being treated by oxycodone at facility. No active pain at this time. Denies fever, cough, sore throat, CV, SOB, N/V/D, abdominal pain, change in urine, change in BM. Medical history CVA, DM, HTN, CK D, hypothyroid, HDL, A. fib. History of left knee replacement 11 years ago, left ankle surgery 1 year ago. 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 Mechanism Of Injury: Unknown Onset of Pain: Days Onset/Duration: Weeks Severity Currently: None Pain Intensity: 0 Pain Scale Used: 0-10 Numeric Timing: Intermittent Location: Is Discrete @ Character Of Pain: Aching, Throbbing Associated Signs And Symptoms: Positive: Negative Able to Bear Weight: No - due to obesity - Allergies/Home Medications Allergies/Adverse Reactions: Allergies Allergy/AdvReac Type Severity Reaction Status Date / Time hydromorphone Allergy Altered Verified 12/11/17 20:15 Mental Status rivaroxaban [From Xarelto] Allergy Bleeding Verified 12/11/17 20:15 PMH/Surg Hx/FS Hx/Imm Hx Endocrine/Hematology History: Reports: Hx Diabetes - IDDM, Hx Thyroid Disease - hypothyroid, Hx Anemia Cardiovascular History: Reports: Hx Atrial Fibrillation, Hx Coronary Artery Disease, Hx Hypercholesterolemia, Hx Hypertension, Other Cardiovascular Problems /Disorders - A Fib, myocardial stenosis Denies: Hx Pacemaker/ICD Respiratory History: Reports: Hx Asthma, Hx Sleep Apnea GI History: Reports: Hx Gastroesophageal Reflux Disease, Hx Gastrointestinal Bleed, Other GI Disorders - GI BLEED History: Reports: Hx Kidney Infection Denies: Hx Dialysis, Hx Renal Disease Musculoskeletal History: Reports: Hx Arthritis, Other Musculoskeletal History - CHRONIC BACK PAIN, bilat knee replacements, recent L ankle fracture Sensory History: Reports: Hx Cataracts - Implant surgery L eye 2007, Hx Contacts or Glasses Denies: Hx Hearing Aid, Hx Hearing Problem Opthamlomology History: Reports: Hx Cataracts - Implant surgery L eye 2007, Hx Contacts or Glasses Neurological History: Reports: Hx CVA - with right-sided sequela, Hx Transient Ischemic Attacks (TIA) - "Mini-strokes" 20 yrs ago Denies: Hx Dementia, Hx Developmental Delay, Hx Headaches, Hx Migraine, Hx Nerve Disease, Hx Seizures, Hx Spinal Cord Injury, Other Neuro Impairments/ Disorders Psychiatric History: Reports: Hx Anxiety, Hx Depression, Other Psychiatric Issues/Disorders - claustrophobia Denies: Hx Panic Disorder - Cancer History Hx Chemotherapy: No Hx Radiation Therapy: No - Surgical History Surgery Procedure, Year, and Place: R knee replacement 2010, L3/L4 laminectomy. left knee replacement 2012. L ankle ORIF 01/10/16 Hx Anesthesia Reactions: No - Immunization History Date of Tetanus Vaccine: 2010 Date of Influenza Vaccine: Fall 2011 Infectious Disease History: No Infectious Disease History: Reports: Hx Shingles - pt states about 6 months ago , ON HER BACK Denies: Hx Clostridium Difficile, Hx Hepatitis, Hx Human Immunodeficiency Virus (HIV), Hx of Known/Suspected MRSA, Hx Tuberculosis, History Other Infectious Disease, Traveled Outside the [place] in Last 30 Days - Family History Known Family History: Positive: Hypertension, Other - lung cancer (father), brain cancer (brother) Negative: Cardiac Disease, Diabetes - Social History Alcohol Use: None Substance Use Type: Reports: None Smoking Status (MU): Former Smoker Type: Cigarettes Have You Smoked in the Last Year: No Review of Systems Constitutional: Negative Eyes: Negative ENT: Negative Cardiovascular: Negative Respiratory: Negative Gastrointestinal: Negative Genitourinary: Negative Musculoskeletal: Other Skin: Negative Neurological: Negative Psychological: Normal All Other Systems Reviewed And Are Negative: Yes Physical Exam - Summary Physical Exam Summary: No erythema, ecchymosis, swelling, deformity noted to left hip, left extremity. Very minimal tenderness with palpation of lateral distal thigh. Patient unable to pinpoint where pain is. Pulses intact distally on bilateral lower extremities by Doppler. Patient able to flex and extend bilateral ankles and bilateral knees. Left calf soft nontender. Triage Information Reviewed: Yes Vital Signs On Initial Exam: Initial Vitals Temp Pulse Resp BP Pulse Ox 97.9 F 51 15 220/85 96 06/30/18 23:30 06/30/18 23:30 06/30/18 23:30 06/30/18 23:30 06/30/18 23:30 Vital Signs Reviewed: Yes Appearance: Positive: Well-Appearing Skin: Positive: Warm Head/Face: Positive: Normal Head/Face Inspection Eyes: Positive: Normal Neck: Positive: Supple Respiratory/Lung Sounds: Positive: Clear to Auscultation Cardiovascular: Positive: Normal Abdomen Description: Positive: Nontender Musculoskeletal: Positive: Normal Neurological: Positive: Normal Psychiatric: Positive: Normal AVPU Assessment: Alert - Jeane Coma Scale Best Eye Response: 4 - Spontaneous Best Motor Response: 6 - Obeys Commands Best Verbal Response: 5 - Oriented Coma Scale Total: 15 Diagnostics - Vital Signs Vital Signs Temp Pulse Resp BP Pulse Ox 06/30/18 23:30 97.9 F 51 15 220/85 96 - Laboratory Lab Results: Lab Results 07/01/18 07/01/18 07/01/18 Range/Units 00:56 00:56 00:56 WBC 8.2 (3.5-10.8) 10^3/ul RBC 4.21 (4.00-5.40) 10^6/ul Hgb 12.6 (12.0-16.0) g/dl Hct 39 (35-47) % MCV 92 (80-97) fL MCH 30 (27-31) pg MCHC 33 (31-36) g/dl RDW 14 (10.5-15) % Plt Count 186 (150-450) 10^3/ul MPV 8.5 (7.4-10.4) fL Neut % (Auto) 66.9 % Lymph % (Auto) 20.2 % [place] % (Auto) 7.4 % Eos % (Auto) 4.4 % Baso % (Auto) 1.1 % Absolute Neuts (auto) 5.5 (1.5-7.7) 10^3/ul Absolute Lymphs (auto) 1.7 (1.0-4.8) 10^3/ul Absolute Monos (auto) 0.6 (0-0.8) 10^3/ul Absolute Eos (auto) 0.4 (0-0.6) 10^3/ul Absolute Basos (auto) 0.1 (0-0.2) 10^3/ul Absolute Nucleated RBC 0 10^3/ul Nucleated RBC % 0.1 INR (Anticoag Therapy) 2.25 H (0.77-1.02) Sodium 140 (135-145) mmol/L Potassium 4.9 (3.5-5.0) mmol/L Chloride 105 (101-111) mmol/L Carbon Dioxide 30 (22-32) mmol/L Anion Gap 5 (2-11) mmol/L BUN 43 H (6-24) mg/dL Creatinine 1.88 H (0.51-0.95) mg/dL Est GFR ( Amer) 31.7 (>60) Est GFR (Non-Af Amer) 26.2 (>60) BUN/Creatinine Ratio 22.9 H (8-20) Glucose 125 H (70-100) mg/dL Lactic Acid (0.5-2.0) mmol/L Calcium 9.4 (8.6-10.3) mg/dL Total Bilirubin 0.40 (0.2-1.0) mg/dL AST 14 (13-39) U/L ALT 13 (7-52) U/L Alkaline Phosphatase 72 (34-104) U/L Troponin I 0.01 (<0.04) ng/mL C-Reactive Protein 2.17 (<8.01) mg/L Total Protein 7.0 (6.4-8.9) g/dL Albumin 3.6 (3.2-5.2) g/dL Globulin 3.4 (2-4) g/dL Albumin/Globulin Ratio 1.1 (1-3) TSH Pending 07/01/18 Range/Units 00:56 WBC (3.5-10.8) 10^3/ul RBC (4.00-5.40) 10^6/ul Hgb (12.0-16.0) g/dl Hct (35-47) % MCV (80-97) fL MCH (27-31) pg MCHC (31-36) g/dl RDW (10.5-15) % Plt Count (150-450) 10^3/ul MPV (7.4-10.4) fL Neut % (Auto) % Lymph % (Auto) % [place] % (Auto) % Eos % (Auto) % Baso % (Auto) % Absolute Neuts (auto) (1.5-7.7) 10^3/ul Absolute Lymphs (auto) (1.0-4.8) 10^3/ul Absolute Monos (auto) (0-0.8) 10^3/ul Absolute Eos (auto) (0-0.6) 10^3/ul Absolute Basos (auto) (0-0.2) 10^3/ul Absolute Nucleated RBC 10^3/ul Nucleated RBC % INR (Anticoag Therapy) (0.77-1.02) Sodium (135-145) mmol/L Potassium (3.5-5.0) mmol/L Chloride (101-111) mmol/L Carbon Dioxide (22-32) mmol/L Anion Gap (2-11) mmol/L BUN (6-24) mg/dL Creatinine (0.51-0.95) mg/dL Est GFR ( Amer) (>60) Est GFR (Non-Af Amer) (>60) BUN/Creatinine Ratio (8-20) Glucose (70-100) mg/dL Lactic Acid 1.4 (0.5-2.0) mmol/L Calcium (8.6-10.3) mg/dL Total Bilirubin (0.2-1.0) mg/dL AST (13-39) U/L ALT (7-52) U/L Alkaline Phosphatase (34-104) U/L Troponin I (<0.04) ng/mL C-Reactive Protein (<8.01) mg/L Total Protein (6.4-8.9) g/dL Albumin (3.2-5.2) g/dL Globulin (2-4) g/dL Albumin/Globulin Ratio (1-3) TSH Result Diagrams: 07/01/18 00:56 07/01/18 00:56 Lab Statement: Any lab studies that have been ordered have been reviewed, and results considered in the medical decision making process. Lower Extremity Course/Dx - Course Course Of Treatment: Patient from [facility] complains of left femur fracture diagnosed by x-ray today. Patient denies trauma, does complain of left leg pain 2 weeks, being treated by oxycodone at facility. No active pain at this time. Denies fever, cough, sore throat, CV, SOB, N/V/D, abdominal pain, change in urine, change in BM. Medical history CVA, DM, HTN, CK D, hypothyroid, HDL, A. fib. History of left knee replacement 11 years ago, left ankle surgery 1 year ago. Physical exam:No erythema, ecchymosis, swelling, deformity noted to left hip, left extremity. Very minimal tenderness with palpation of lateral distal thigh. Patient unable to pinpoint where pain is. Pulses intact distally on bilateral lower extremities by Doppler. Patient able to flex and extend bilateral ankles and bilateral knees. Left calf soft nontender. Patient from [facility] with x-ray report confirming fracture of the left distal femur. X-ray of left femur and left knee taken here in the ED negative for fracture per this provider, attending physician and radiology. Special request for radiology to read x-ray after 6 PM result negative for fracture. Patient discharged in stable condition to [facility]. - Diagnoses Provider Diagnoses: Leg pain Discharge - Sign-Out/Discharge Documenting (check all that apply): Patient Departure - Discharge Plan Condition: Stable Disposition: SNF FACILITY Patient Education Materials: Leg Pain (ED) Referrals: Sunny Baltazar MD [Primary Care Provider] - Additional Instructions: Follow-up with primary care. Return to the ED for any new or worsening symptoms. - Billing Disposition and Condition Condition: STABLE [facility]
[2018-07-01 01:51] LABS: TSH (Thyroid Stimulating Horm) 33.73 mcIU/mL (0.34-5.60)
[2018-07-01 02:36] VITALS: BP 176/90
== END 2018-07-01 02:35 ==
LOC: ED 23:26
DX: M79.605 Pain in left leg (principal); E66.9 Obesity, unspecified; E10.9 Type 1 diabetes mellitus without complications; I25.10 Atherosclerotic heart disease of native coronary artery without angina pectoris; Z87.891 Personal history of nicotine dependence
CPT/HCPCS: 36415; 80053; 83036; 83605; 84443; 84484; 85025; 85610; 86140; 93005; 99283; A9270-GY

== ENCOUNTER 2018-11-25 13:19 | Emergency (ER) | payer MEDICARE, MEDICAID ==
--- NOTE | 2018-11-25 13:59 | ED ---
Lower Extremity - HPI Summary HPI Summary: The patient is a 73 year old F brought in by EMS from [facility] to [facility] for her L ankle which is deformed. She stated that she has had past surgeries on her L ankle but the staff at [facility] has been re-injuring her ankle since her surgery. Last night she had pain in her L ankle, and today when the staff checked on her they found that the ankle had deviated inward. She states that the pain has decreased overnight. She also has pain to palpation in her L calf with swelling around her L ankle. Her symptoms are alleviated by rest and are aggravated by movement and palpation. Pt denies any fever, chills, erythema of eyes, sore throat, CP, SOB, cough, abdominal pain, N/V, dysuria, hematuria, myalgia, edema, rash, or dizziness. 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 She is wheelchair bound on baseline. - History of Current Complaint Chief Complaint: EDExtremityLower Stated Complaint: POSS LEFT ANKLE FRACTURE PER EMS Time Seen by Provider: 11/25/18 13:35 Hx Obtained From: Patient Mechanism Of Injury: Unknown Onset of Pain: Days - 1 Onset/Duration: Resolved - Pt stated that the pain has improved Severity Initially: Moderate Severity Currently: None Pain Intensity: 0 Pain Scale Used: 0-10 Numeric Timing: Constant Associated Signs And Symptoms: Positive: Negative - Pt denies any fever, chills , erythema of eyes, sore throat, CP, SOB, cough, abdominal pain, N/V, dysuria, hematuria, myalgia, edema, rash, or dizziness., Swelling, Other - Pain around her L ankle, L calf pain. Aggravating Factor(s): Movement, Other - palpation Alleviating Factor(s): Rest - Allergies/Home Medications Allergies/Adverse Reactions: Allergies Allergy/AdvReac Type Severity Reaction Status Date / Time hydromorphone Allergy Altered Verified 11/25/18 13:33 Mental Status rivaroxaban [From Xarelto] Allergy Bleeding Verified 11/25/18 13:33 PMH/Surg Hx/FS Hx/Imm Hx Previously Healthy: No Endocrine/Hematology History: Reports: Hx Diabetes - IDDM, Hx Thyroid Disease - hypothyroid, Hx Anemia Cardiovascular History: Reports: Hx Atrial Fibrillation, Hx Coronary Artery Disease, Hx Hypercholesterolemia, Hx Hypertension, Other Cardiovascular Problems /Disorders - A Fib, myocardial stenosis Denies: Hx Pacemaker/ICD Respiratory History: Reports: Hx Asthma, Hx Sleep Apnea GI History: Reports: Hx Gastroesophageal Reflux Disease, Hx Gastrointestinal Bleed, Other GI Disorders - GI BLEED History: Reports: Hx Kidney Infection Denies: Hx Dialysis, Hx Renal Disease Musculoskeletal History: Reports: Hx Arthritis, Other Musculoskeletal History - CHRONIC BACK PAIN, bilat knee replacements, recent L ankle fracture Sensory History: Reports: Hx Cataracts - Implant surgery L eye 2007, Hx Contacts or Glasses Denies: Hx Hearing Aid, Hx Hearing Problem Opthamlomology History: Reports: Hx Cataracts - Implant surgery L eye 2007, Hx Contacts or Glasses Neurological History: Reports: Hx CVA - with right-sided sequela, Hx Transient Ischemic Attacks (TIA) - "Mini-strokes" 20 yrs ago Denies: Hx Dementia, Hx Developmental Delay, Hx Headaches, Hx Migraine, Hx Nerve Disease, Hx Seizures, Hx Spinal Cord Injury, Other Neuro Impairments/ Disorders Psychiatric History: Reports: Hx Anxiety, Hx Depression, Other Psychiatric Issues/Disorders - claustrophobia Denies: Hx Panic Disorder - Cancer History Hx Chemotherapy: No Hx Radiation Therapy: No - Surgical History Surgery Procedure, Year, and Place: R knee replacement 2010, L3/L4 laminectomy. left knee replacement 2012. L ankle ORIF 01/10/16 Hx Anesthesia Reactions: No - Immunization History Date of Tetanus Vaccine: 2010 Date of Influenza Vaccine: Fall 2011 Infectious Disease History: No Infectious Disease History: Reports: Hx Shingles - pt states about 6 months ago , ON HER BACK Denies: Hx Clostridium Difficile, Hx Hepatitis, Hx Human Immunodeficiency Virus (HIV), Hx of Known/Suspected MRSA, Hx Tuberculosis, History Other Infectious Disease, Traveled Outside the [place] in Last 30 Days - Family History Known Family History: Positive: Hypertension, Other - lung cancer (father), brain cancer (brother) Negative: Cardiac Disease, Diabetes - Social History Lives: [place] Alcohol Use: None Hx Substance Use: No - [facility] Substance Use Type: Reports: None Hx Tobacco Use: Yes Smoking Status (MU): Former Smoker Type: Cigarettes Have You Smoked in the Last Year: No Review of Systems Negative: Fever, Chills Negative: Erythema Negative: Sore Throat Negative: Chest Pain Negative: Shortness Of Breath, Cough Negative: Abdominal Pain, Vomiting, Nausea Negative: dysuria, hematuria Positive: Other - L ankle deformity, L calf pain with palpation, Swelling around the L ankle. . Negative: Myalgia, Edema Negative: Rash All Other Systems Reviewed And Are Negative: Yes Physical Exam - Summary Physical Exam Summary: Constitutional: Well-developed, Well-nourished, Alert. (-) Distressed Skin: Warm, Dry HENT: Normocephalic; Atraumatic Eyes: Conjunctiva normal Neck: Musculoskeletal ROM normal neck. (-) JVD, (-) Stridor, (-) Tracheal deviation Cardio: Rhythm regular, rate normal, Heart sounds normal; Intact distal pulses; The pedal pulses are 2+ and symmetric. Radial pulses are 2+ and symmetric. (-) Murmur, good dorsalis pedal pulses, toes are cold to the touch, Pulmonary/Chest wall: Effort normal. (-) Respiratory distress, (-) Wheezes, (-) Rales Abd: Soft, (-) tenderness, (-) Distension, (-) Guarding, (-) Rebound Musculoskeletal: (-) Edema, L ankle is angulated inward, tender over the tibia and fibula Lymph: (-) Cervical adenopathy Neuro: Alert, Oriented x3 Psych: Mood and affect Normal Triage Information Reviewed: Yes Vital Signs On Initial Exam: Initial Vitals Temp Pulse Resp BP Pulse Ox 97.2 F 48 18 167/56 95 11/25/18 13:23 11/25/18 13:23 11/25/18 13:23 11/25/18 13:23 11/25/18 13:23 Vital Signs Reviewed: Yes Diagnostics - Vital Signs Vital Signs Temp Pulse Resp BP Pulse Ox 11/25/18 13:23 97.2 F 48 18 167/56 95 - Laboratory Lab Statement: Any lab studies that have been ordered have been reviewed, and results considered in the medical decision making process. - Radiology Knee X-Ray Radiology Interpretation Completed By: Radiologist Summary of Radiographic Findings: Anteromedial soft tissue swelling. Negative for fracture or stigmata of prosthesis loosening. ED Physician has reviewed this report. Ankle X-Ray Radiology Interpretation Completed By: Radiologist Summary of Radiographic Findings: 1. CHRONIC DISPLACED UNUNITED FRACTURE OF THE MEDIAL MALLEOLUS, UNCHANGED. 2. CHRONIC MEDIAL SUBLUXATION OF THE TALUS RELATIVE TO THE TIBIA AND FIBULA, UNCHANGED. 3. STATUS POST OPERATIVE REDUCTION INTERNAL FIXATION OF THE DISTAL TIBIA. THE 2 DISTAL MOST SURGICAL SCREWS ERODE INTO THE SUPERIOR PORTION OF THE TALUS WHICH IS UNCHANGED. ED Physician has reviewed this report. Re-Evaluation - Re-Evaluation First Eval Re-Evaluation Time: 14:05 Change: Unchanged Comment: No hardware appears to be protruding from the L ankle. Lower Extremity Course/Dx - Course Course Of Treatment: he patient is a 73 year old F brought in by EMS from [facility] to [facility] for her L ankle which is deformed. She stated that she has had past surgeries on her L ankle but the staff at [facility] has been re- injuring her ankle since her surgery. Last night she had pain in her L ankle, and today when the staff checked on her they found that the ankle had deviated inward. Upon her PE it is found that her La ankle is angulated inward, she is tender over the tibia and fibula, her toes are cold to the touch, and she has good dorsalis pedal pulses. Pt's Knee X-Ray shows: Anteromedial soft tissue swelling. Negative for fracture or stigmata of prosthesis loosening. Her Ankle X-Ray shows: 1. CHRONIC DISPLACED UNUNITED FRACTURE OF THE MEDIAL MALLEOLUS, UNCHANGED. 2. CHRONIC MEDIAL SUBLUXATION OF THE TALUS RELATIVE TO THE TIBIA AND FIBULA, UNCHANGED. 3. STATUS POST OPERATIVE REDUCTION INTERNAL FIXATION OF THE DISTAL TIBIA. THE 2 DISTAL. MOST SURGICAL SCREWS ERODE INTO THE SUPERIOR PORTION OF THE TALUS WHICH IS UNCHANGED. Pt will be Dx with Charcot ankle and chronic ankle fractures. She is in no acute distress, no signs of infection or redness, and no significant pain. She will be instructed to follow up with Dr. Tim in 2-3 days. - Diagnoses Provider Diagnoses: Charcot ankle, Ankle fracture, left Discharge - Sign-Out/Discharge Documenting (check all that apply): Patient Departure - discharge Patient Received Moderate/Deep Sedation with Procedure: No - Discharge Plan Condition: Stable Disposition: HOME Patient Education Materials: Ankle Fracture (ED), Foot Care for People with Diabetes (ED) Referrals: Rio Tim MD [Medical Doctor] - 2 Days Additional Instructions: Please follow up with Dr. Tim, Orthopedics, in 2-3 days and return to the emergency room for any new or worsening symptoms. Please review the attached education materials. - Billing Disposition and Condition Condition: STABLE Disposition: Home - Attestation Statements Document Initiated by Scribe: Yes Documenting Scribe: Herb Villalobos Provider For Whom Scribe is Documenting (Include Credential): Kem Carpenter MD Scribe Attestation: I, Herb Villalobos, scribed for Kem Carpenter MD on 11/27/18 at 1037. Scribe Documentation Reviewed: Yes Provider Attestation: The documentation as recorded by the blankibHerb guan accurately reflects the service I personally performed and the decisions made by me, Kem Carpenter MD Status of Scribe Document: Viewed Consult Consult: Spoke with the nursing staff at [facility] at 1404 who stated that the pt was complaining of pain this morning when she woke up. According to the staff the pt 's ankle has been deformed but appeared more deformed to day. She is non- ambulatory.
[2018-11-25 15:57] VITALS: BP 151/54
== END 2018-11-25 15:56 | disposition home or self-care (01) ==
LOC: ED 13:19
DX: A52.16 Charcot's arthropathy (tabetic) (principal); M84.472A Pathological fracture, left ankle, initial encounter for fracture; E11.9 Type 2 diabetes mellitus without complications; E03.9 Hypothyroidism, unspecified; I48.91 Unspecified atrial fibrillation; I25.10 Atherosclerotic heart disease of native coronary artery without angina pectoris; I10 Essential (primary) hypertension; Z87.891 Personal history of nicotine dependence
CPT/HCPCS: 99282

== ENCOUNTER 2019-04-28 11:48 | Inpatient (IN) | payer MEDICARE, MEDICAID ==
--- NOTE | 2019-04-28 11:59 | ED ---
Altered Mental Status - HPI Summary HPI Summary: This patient is a 73 year old F BIBA via EMS to ED with a chief complaint of AMS since unknown onset. Patient is a patient at [facility], who found her unresponsive except to pain this morning. Patient is accompanied by her daughter , who states that the patient is completely alert and oriented at baseline. Per daughter, patient was confused yesterday (unable to take a straw to the lip) and she did not recognize her brother. Her daughter states that the patient usually gets disoriented when she has a UTI. Patients blood sugar per EMS was 174. Patient is taking Eliquis and she started Baclofen two days ago. Medications reviewed. Allergies noted. LEVEL 5 CAVEAT: COMPLETE HPI UNATTAINABLE DUE TO PATIENT AMS. - History Of Current Complaint Stated Complaint: UNRESPONSIVE PER EMS Hx Obtained From: Family/News Clipping Cutter - Daughter, EMS Hx From Patient Unobtainable Due To: Altered Mental Status Onset/Duration: Unknown, Still Present Severity Initially: Mild Severity Currently: Mild Character: Responsiveness Aggravating Factor(s): Nothing Alleviating Factor(s): Nothing - Allergies/Home Medications Allergies/Adverse Reactions: Allergies Allergy/AdvReac Type Severity Reaction Status Date / Time hydromorphone Allergy Altered Verified 11/25/18 13:33 Mental Status rivaroxaban [From Xarelto] Allergy Bleeding Verified 11/25/18 13:33 Home Medications: Home Medications Amiodarone TAB* [Cordarone TAB*] 200 mg PO DAILY 04/28/19 [History Confirmed ] Apixaban* [Eliquis*] 5 mg PO BID 04/28/19 [History Confirmed 04/28/19] Bisacodyl SUPP* [Dulcolax Supp*] 10 mg OR Q24HR 04/28/19 [History Confirmed ] Calazime Cream 1 applic TOPICAL Q6H 04/28/19 [History Confirmed 04/28/19] Diclofenac 1% GEL (NF) [Voltaren 1% GEL (NF)] 2 gm TOPICAL QID 04/28/19 [ History Confirmed 04/28/19] guaiFENesin [Diabetic Tussin Ex] 5 ml PO Q6H PRN 04/28/19 [History Confirmed ] traMADol TAB* [Ultram*] 50 mg PO Q6HR PRN 04/28/19 [History Confirmed 04/28/19] PMH/Surg Hx/FS Hx/Imm Hx Previously Healthy: No - LEVEL 5 CAVEAT: COMPLETE PMH UNATTAINABLE DUE TO PATIENT AMS. Endocrine/Hematology History: Reports: Hx Diabetes - IDDM, Hx Thyroid Disease - hypothyroid, Hx Anemia Cardiovascular History: Reports: Hx Atrial Fibrillation, Hx Coronary Artery Disease, Hx Hypercholesterolemia, Hx Hypertension, Other Cardiovascular Problems /Disorders - A Fib, myocardial stenosis Denies: Hx Pacemaker/ICD Respiratory History: Reports: Hx Asthma, Hx Sleep Apnea GI History: Reports: Hx Gastroesophageal Reflux Disease, Hx Gastrointestinal Bleed, Other GI Disorders - GI BLEED History: Reports: Hx Kidney Infection Denies: Hx Dialysis, Hx Renal Disease Musculoskeletal History: Reports: Hx Arthritis, Other Musculoskeletal History - CHRONIC BACK PAIN, bilat knee replacements, recent L ankle fracture Sensory History: Reports: Hx Cataracts - Implant surgery L eye 2007, Hx Contacts or Glasses Denies: Hx Hearing Aid, Hx Hearing Problem Opthamlomology History: Reports: Hx Cataracts - Implant surgery L eye 2007, Hx Contacts or Glasses Neurological History: Reports: Hx CVA - with right-sided sequela, Hx Transient Ischemic Attacks (TIA) - "Mini-strokes" 20 yrs ago Denies: Hx Dementia, Hx Developmental Delay, Hx Headaches, Hx Migraine, Hx Nerve Disease, Hx Seizures, Hx Spinal Cord Injury, Other Neuro Impairments/ Disorders Psychiatric History: Reports: Hx Anxiety, Hx Depression, Other Psychiatric Issues/Disorders - claustrophobia Denies: Hx Panic Disorder - Cancer History Hx Chemotherapy: No Hx Radiation Therapy: No - Surgical History Surgery Procedure, Year, and Place: R knee replacement 2010, L3/L4 laminectomy. left knee replacement 2012. L ankle ORIF 01/10/16 Hx Anesthesia Reactions: No - Immunization History Date of Tetanus Vaccine: 2010 Date of Influenza Vaccine: Fall 2011 Infectious Disease History: Reports: Hx Shingles - pt states about 6 months ago , ON HER BACK Denies: Hx Clostridium Difficile, Hx Hepatitis, Hx Human Immunodeficiency Virus (HIV), Hx of Known/Suspected MRSA, Hx Tuberculosis, History Other Infectious Disease - Family History Known Family History: Positive: Hypertension, Other - lung cancer (father), brain cancer (brother) Negative: Cardiac Disease, Diabetes - Social History Alcohol Use: None Hx Substance Use: No - [facility] Substance Use Type: Reports: None Hx Tobacco Use: Yes Smoking Status (MU): Former Smoker Type: Cigarettes Have You Smoked in the Last Year: No Review of Systems - ROS Summary Review of Systems Summary: LEVEL 5 CAVEAT: COMPLETE ROS UNATTAINABLE DUE TO PATIENT AMS. Positive: Cough Neurological: Other - Confusion, AMS All Other Systems Reviewed And Are Negative: No Physical Exam - Summary Physical Exam Summary: LEVEL 5 CAVEAT: COMPLETE PE UNATTAINABLE DUE TO PATIENT AMS. Constitutional: Well-developed, Well-nourished, Alert. (-) Distressed Skin: Warm, Dry HENT: Normocephalic; Atraumatic Eyes: Pupils are 3mm and reactive to light Neck: Musculoskeletal ROM normal neck. (-) JVD, (-) Stridor, (-) Tracheal deviation Cardio: Rhythm regular, rate normal, Heart sounds normal; Intact distal pulses; Radial pulses are 2+ and symmetric. (-) Murmur Pulmonary/Chest wall: Effort normal. (-) Respiratory distress, (-) Wheezes, (-) Rales Abd: Soft, (-) tenderness, (-) Distension, (-) Guarding, (-) Rebound Musculoskeletal: (-) Edema Lymph: (-) Cervical adenopathy Neuro: sonorous respirations, does open her eyes to name, nonverbal, is spontaneous to moving all four extremities GCS: 9 Psych: Mood and affect Normal Triage Information Reviewed: Yes Vital Signs On Initial Exam: Initial Vitals Temp Pulse Resp BP Pulse Ox 98.7 F 47 16 215/82 98 04/28/19 12:01 04/28/19 12:01 04/28/19 12:01 04/28/19 12:01 04/28/19 12:01 Vital Signs Reviewed: Yes - Jeane Coma Scale Best Eye Response: 3 - To Speech Best Motor Response: 4 - Withdraws Best Verbal Response: 2 - Incomprehensible Words Coma Scale Total: 9 Procedures - Sedation Patient Received Moderate/Deep Sedation with Procedure: No Diagnostics - Laboratory Result Diagrams: 04/28/19 12:35 04/28/19 12:35 Lab Statement: Any lab studies that have been ordered have been reviewed, and results considered in the medical decision making process. - Radiology CXR Radiology Interpretation Completed By: Radiologist Summary of Radiographic Findings: LOW LUNG VOLUMES. NO ACTIVE CARDIOPULMONARY DISEASE. Dr. Ji has reviewed this radiology report. - CT Brain CT Interpretation Completed By: Radiologist Summary of CT Findings: Wedge-shaped defect in the left posterior parietal lobe suggestive of evolving infarct. Chronic ischemic White matter change is noted. Dr. Ji has reviewed this radiology report. - EKG 1248 Cardiac Rate: Bradycardia - 44 BPM EKG Rhythm: Sinus Bradycardia Summary of EKG Findings: Sinus bradycardia at 44 BPM, T-wave inversion in aVR and V1. No other abnormality. Re-Evaluation - Re-Evaluation First Eval Re-Evaluation Time: 13:35 Comment: Patient is feeling slightly better but reports new pain in the bilateral arms, legs, chest, and abdomen (all over the place). She is able to respond to questions. Discussed results with patient and her family. Patient has UTI so I will give abx. Patient agrees to be admitted to [facility]. Altered Mental Statu Course/Dx - Course Course Of Treatment: Patient is here with altered mental status. Patient arrives breathing on her own with a GCS of 9. Patient had a negative CT head for intracranial hemorrhage. Patient was bradycardic and hypertensive with bradycardia being her baseline per family. Patient had a negative EKG for any ischemic change. Patient had a negative chest x-ray. Patient had a UA which showed UTI. Patient had her mentation improve while she was in the ED. Patient is likely suffering from a UTI and had altered mental status compounded with her recent baclofen use. Patient does have an elevated troponin but I do not believe this represents a dissection. - Diagnoses Provider Diagnoses: Altered mental status, Drug reaction, Urinary tract infection - Provider Notifications Discussed Care Of Patient With: Renny Lazar Time Discussed With Above Provider: 13:47 Instructed by Provider To: Admit As Inpatient - Discussed patient case with Dr. Lazar, hospitalist, who accepted the patient for admission to [facility]. - Critical Care Time Critical Care Time: 30-74 min - 35 minutes Discharge ED - Sign-Out/Discharge Documenting (check all that apply): Patient Departure - Admit - Discharge Plan Condition: Stable Disposition: ADMITTED TO [facility] Referrals: Sunny Baltazar MD [Primary Care Provider] - - Billing Disposition and Condition Condition: STABLE Disposition: Admitted to [facility] - Attestation Statements Document Initiated by Scribe: Yes Documenting Scribe: Santiago Vang Provider For Whom Scribe is Documenting (Include Credential): Devon Ji MD Scribe Attestation: I, Santiago Vang, scribed for Devon Ji MD on 04/28/19 at 1522. Scribe Documentation Reviewed: Yes Provider Attestation: The documentation as recorded by the scribe, Santiago Vang accurately reflects the service I personally performed and the decisions made by me, Devon Ji MD Status of Scribe Document: Viewed
[2019-04-28 12:45] LABS: ABS Basophils 0.1 10^3/ul (0-0.2); ABS Eosinophils 0.2 10^3/ul (0-0.6); ABS Monocytes 0.6 10^3/ul (0-0.8); ABS Neutrophils 7.1 10^3/ul (1.5-7.7); Eosinophil % 1.9 %; Hematocrit 37 % (35-47); Lymphocyte % 11.6 %; Mean Corpuscular HGB Conc 32 g/dL (31-36); Mean Corpuscular Hemoglobin 29 pg (27-31); Mean Corpuscular Volume 91 fL (80-97); Mean Platelet Volume 8.4 fL (7.4-10.4); Nucleated Red Blood Cells % 0.1; Platelet Count 228 10^3/uL (150-450); Red Cell Distribution Width 14 % (10-15)
[2019-04-28 13:10] LABS: ALT 10 U/L (7-52); AST 15 U/L (13-39); Albumin 3.5 g/dL (3.2-5.2); Alkaline Phosphatase 85 U/L (34-104); Anion Gap 5 mmol/L (2-11); Blood Urea Nitrogen 36 mg/dL (6-24); CO2 Carbon Dioxide 25 mmol/L (22-32); Calcium 9.7 mg/dL (8.6-10.3); Chloride 110 mmol/L (101-111); EGFR African American 42.9 (>60); EGFR Non-African American 35.5 (>60); Globulin 3.6 g/dL (2-4); Glucose 136 mg/dL (70-100); Potassium 4.8 mmol/L (3.5-5.0); Sodium 140 mmol/L (135-145); Total Protein 7.1 g/dL (6.4-8.9)
[2019-04-28 13:18] LABS: Troponin I 0.08 ng/mL (<0.03)
[2019-04-28 13:28] LABS: Urine Appearance Cloudy; Urine Bilirubin Negative (Negative); Urine Blood 1+ (Negative); Urine Color Yellow; Urine Glucose Negative (Negative); Urine Ketones Negative (Negative); Urine Nitrite Negative (Negative); Urine Protein 2+(100 mg/dL) (Negative); Urine Specific Gravity 1.011 (1.010-1.030); Urine Urobilinogen Negative (Negative)
[2019-04-28 13:33] LABS: Urine Bacteria 3+ (Absent); Urine Red Blood Cell 2+(6-10/hpf) (Absent); Urine White Blood Cell 3+(>20/hpf) (Absent)
[2019-04-28] MEDS ORDERED: cefTRIAXone(*) 1 GM in NS 0.9% 50 ML* 50 ML IVPB ONE (13:41)
[2019-04-28 13:53] LABS: Urine Benzodiazepine Screen None Detected (None Detect); Urine Opiates Screen None Detected (None Detect)
[2019-04-28 13:57] LABS: TSH (Thyroid Stimulating Horm) 7.87 mcIU/mL (0.34-5.60)
[2019-04-28 13:58] LABS: Free T4 1.49 ng/dL (0.61-1.12)
[2019-04-28 13:59] LABS: Alcohol < 10 mg/dL (<10)
[2019-04-28] MEDS ORDERED: Dextrose 50% VIAL 50 ml IV PUSH PRN (15:35)
[2019-04-28 16:28] LABS: Troponin I 0.06 ng/mL (<0.03)
[2019-04-28] MEDS ORDERED: Iodixanol* (CONTRAST) 320 MG/ML 100 ML SDV IV ONE (16:51)
--- NOTE | 2019-04-28 18:02 | CONS ---
CONSULTATION REPORT: DATE OF CONSULT: 04/28/19 PATIENT OF: ANN Retana. HISTORY OF PRESENT ILLNESS: This is a 73-year-old woman who had new onset of confusion yesterday and did not recognize her brother. Today, she was found to be unresponsive except to pain and therefore was brought to the emergency room. Of note, the patient has sleep apnea. PAST MEDICAL HISTORY: Significant for paroxysmal atrial fibrillation, and she has had an expressive aphasia due to cardioembolic stroke in 2016. She has diabetes, hypertension, and history of GI bleed, on Xarelto. She also has a history of small bowel AVMs. She has had a cardioembolic stroke in 2016 with residual mild aphasia and right-sided weakness, hyperlipidemia, obesity, chronic back pain, hypothyroidism, obstructive sleep apnea. PAST SURGICAL HISTORY: Status post total knee replacement bilaterally and a laminectomy at L3-4. MEDICATIONS: Include at home: 1. Amiodarone 200 mg daily. 2. Baclofen 10 mg p.r.n., recently stopped. 3. Guaifenesin 5 mL p.r.n. 4. Dulcolax. 5. Eliquis 5 mg b.i.d. 6. Insulin 4 units q.a.m. 7. Furosemide 20 mg daily. 8. Lantus insulin 28 units q.p.m. 9. Synthroid 175 mcg daily. 10. Lipitor 20 mg daily. 11. Metoprolol 25 mg daily. 12. Tramadol 50 mg q.6 hours p.r.n. ALLERGIES: She is allergic to HYDROMORPHONE and RIVAROXABAN causing bleeding. SOCIAL HISTORY: She has 30 plus year history of smoking, but does not abuse any other substances. REVIEW OF SYSTEMS: Unobtainable from the patient. The daughter says that she has been in her usual state of health. PHYSICAL EXAM: Temperature 98.7, pulse 42, respirations 13, blood pressure 156/ 73. She had her eyes closed, but would arouse easily. She had a dense aphasia. She was unable to say her name, but when I said is your name Joselin, she could recognize it easily out of multiple choices. She was able to say simple phrases such as hi and thank you, but could not name any objects. Cranial nerves II through XII were nonfocal other than she had right facial weakness. It was difficult to assess whether she had a visual field deficit. She did not have any obvious ones to threat. She had as best I can tell close to 5/5 strength on the left and I think on the right at least 4/5 in the arm and hand. She moved her left leg when I said wiggle toes, but did not move her right leg. DIAGNOSTIC STUDIES/LAB DATA: I reviewed her CT scan, which showed some white matter disease and a hypodensity in the left posterior parietal lobe consistent with a probable recent stroke. It was not compared to prior studies by the radiologist. I looked at a CT scan from January 2016. There was stroke in this area of the brain, but it was not perhaps as pronounced. She had an EEG, which did not show any seizure activity. There was some diffuse slowing as well as some apparent worsening of hypolucency. She had a normal CBC. Normal CMP other than a creatinine of 1.44, BUN 36. Troponin 0.06. TSH 7.87. UA had 2+ protein, leuk esterase 2+, bacteria 3+. Urine tox screen was negative. IMPRESSION AND PLAN: When I was called about the patient, it was told that the patient was globally encephalopathic. I think that the primary finding here is a worse aphasia possibly from extension of stroke. It seems like there was mild worsening yesterday and worse today. We had recommended getting a CTA to make sure that there was no brainstem infarct. I think that this is less likely , but it is hard to know whether there was a global encephalopathy. In addition , I also think that she is unlikely to be a good candidate for clot retrieval since this may have been present since yesterday, but it is unclear in the setting of significant worsening. The patient is off at CTA now and I had a call in to the medical care providers to see if they wanted to go through with the CTA. The daughter who was here thought it was reasonable to do until we checked with the medical care providers. MRI scan would be useful in assessing whether there is further stroke in the area. She also has evidence for possible urinary tract infection that may have exacerbated her underlying confusion and aphasia, and I will discuss this with the hospitalist but defer to them in terms of optimum treatment for this. Thank you for sharing her case. [id number]/[facility] #: [id number] VALE
--- NOTE | 2019-04-28 18:19 | HP ---
CC: Dr. Shruti Clarke [facility] * HISTORY AND PHYSICAL: DATE OF ADMISSION: 04/28/19 PRIMARY CARE PROVIDER: Dr. Shruti Clarke [facility]. ATTENDING PHYSICIAN: Dr. Renny Lazar * (dictated by ANN Retana). CHIEF COMPLAINT: Unresponsiveness. HISTORY OF PRESENT ILLNESS: Ms. Abernathy is a 73-year-old female with past medical history of diabetes mellitus, insulin dependent; atrial fibrillation, on anticoagulation; hypertension; hyperlipidemia; history of CVA, who presented to the ER today unresponsive. Family is at the bedside and relay most of her history. The patient is a resident of [facility]. She was found to be responsive only to pain this morning and was sent to the emergency room. The patient's daughter who is at bedside states that the patient is typically alert and oriented and was noted to be somewhat confused yesterday. This morning, she was unresponsive except to pain stimulus. The patient had recently been started on baclofen for muscle spasms approximately 2 days ago. She has been congested with wheezing and cold symptoms for approximately 1 week. Again yesterday, she became confused. Her daughter notes that she could not use a straw properly. This morning, she was unresponsive and was sent to the ER. In the ER, the patient received a full workup which revealed a creatinine of 1.44 which is within her baseline. A troponin was elevated to 0.08. TSH and free T4 are both elevated. Urinalysis was performed and revealed 2+ leukocyte esterase, 3+ bacteria. The patient was given 1 g ceftriaxone for this. Urine drug screen and blood alcohol were negative. Chest x-ray was negative for cardiopulmonary disease. EKG revealed sinus bradycardia with a rate of 44 and an elevated IA interval. A brain CT was performed and revealed a wedge shaped defect in the left posterior parietal lobe suggestive of evolving infarct. The hospitalist team was asked to further evaluate the patient for admission. PAST MEDICAL HISTORY: 1. Diabetes mellitus, insulin dependent. 2. Hypertension. 3. Hyperlipidemia. 4. Atrial fibrillation, on anticoagulation. 5. Coronary artery disease. 6. Hypothyroidism. 7. Chronic kidney disease. 8. Anemia. 9. Asthma. 10. Obstructive sleep apnea. 11. GERD. 12. Chronic back pain. 13. Arthritis. 14. History of CVA with right-sided sequelae and aphasia. 15. Anxiety, depression. PAST SURGICAL HISTORY: Right knee, L3-L4 laminectomy, left total knee arthroplasty, left ankle ORIF. HOME MEDICATIONS: 1. Amiodarone 200 mg p.o. daily. 2. Apixaban 5 mg p.o. b.i.d. 3. Ascorbic acid 500 mg p.o. b.i.d. 4. Atorvastatin 20 mg p.o. at bedtime. 5. Baclofen 10 mg p.o. t.i.d. p.r.n. muscle spasm. 6. Dulcolax suppository 10 mg IA q.24 hours. 7. Calazime cream 1 application topically q.6 hours. 8. Cholecalciferol 50,000 units p.o. monthly. 9. Diclofenac 1% gel 2 g topically q.i.d. 10. Ferrous sulfate 325 mg p.o. daily. 11. Furosemide 20 mg p.o. daily. 12. Guaifenesin 5 mL p.o. q.6 hours p.r.n. 13. Insulin glargine 28 units subcu q.p.m. 14. Insulin lispro 4 units subcu q.a.m., 6 units a.c. breakfast, a.c. dinner. 15. Levothyroxine 175 mcg p.o. daily. 16. Magnesium hydroxide 30 mL p.o. q.6 hours p.r.n. constipation. 17. Metoprolol succinate 25 mg p.o. daily. 18. Polyethylene glycol 17 g p.o. every other day p.r.n. 19. Tramadol 50 mg p.o. q.6 hours p.r.n. DRUG ALLERGIES: RIVAROXABAN, bleeding; HYDROMORPHONE, altered mental status. FAMILY HISTORY: Obtained from chart. Father had lung cancer. Brother had brain cancer. Positive family history for hypertension. SOCIAL HISTORY: The patient quit using tobacco in 2002. Prior to that, she has a 25-[id number]-urlz history. She rarely drinks alcohol. 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 She lives at [facility]. In the event that she is unable to make her own medical decisions, she has appointed her brother and healthcare proxy, Nelson Browne, to be her surrogate decision maker. Phone number , . REVIEW OF SYSTEMS: Unable to obtain review of systems as the patient is unresponsive to questions, only responsive to pain stimulus. PHYSICAL EXAMINATION GENERAL: Ms. Abernathy is a well-developed, well-nourished, obese older white woman who is lying in bed. She is asleep. She responds only to pain stimulus, but does not wake or open her eyes. HEENT: PERRL. Nonicteric sclerae. Oral mucous membranes are mildly dry. There are no lesions. The pharynx is clear. PULMONARY: Breath sounds clear to auscultation bilaterally anteriorly. The patient unable to follow instructions for deep breathing. No noted wheeze, rhonchi, or rales. CARDIOVASCULAR: Sinus bradycardia. S1, S2 present. No murmurs, rubs, clicks, or gallops. There is no peripheral edema. ABDOMEN: Obese. Bowel sounds in all quadrants. Soft. There appears to be no tenderness to palpation. NEUROLOGIC: The patient is responsive only to pain. She does not answer orientation questions. Unable to evaluate cranial nerves. Pupils are equally round and responsive to light. DIAGNOSTIC STUDIES/LAB DATA: 1. EKG, sinus bradycardia, rate 44 with prolonged IA interval. 2. Chest x-ray, impression: Low lung volumes, no active cardiopulmonary disease. 3. CT brain without, impression: Wedge shaped defect in the left posterior parietal lobe suggestive of evolving infarct. Chronic ischemic white matter changes noted. CBC within normal limits. BUN 36, creatinine 1.44, glucose 136. Troponin 0.08. TSH 7.87, free T4 of 1.49. ASSESSMENT AND PLAN: Ms. Abernathy is a 73-year-old female with past medical history of diabetes mellitus, insulin dependent; atrial fibrillation, on anticoagulation; hypertension; hyperlipidemia; history of cerebrovascular accident, who presented to the ER today unresponsive and was found to have a possible evolving infarct on CT of the brain. She will be admitted for: 1. Unresponsive episode. The patient was noted to be confused yesterday and unresponsive this morning. She continues to be unresponsive except to pain stimulus. A CT of the brain reveals wedge shaped defect suggestive of evolving infarct. Neurology has been consulted and recommended CTA of the head and neck and EEG which have all been ordered. The patient recently started baclofen which will be discontinued. Urinalysis is suggestive of urinary tract infection , which will continue to be treated. We will await imaging for further management. 2. Urinary tract infection. The patient has UA with 2+ LE, 3+ bacteria, negative nitrites. She has been given 1 dose of ceftriaxone 1 g in the ER, this will be continued at admission. 3. Diabetes mellitus. The patient uses glargine insulin 28 units q.p.m., will decrease to 10 units tonight in the setting of unresponsiveness and not eating. She will be placed on lispro sliding scale with fingersticks a.c. and h.s. 4. Hypertension. Continue home furosemide, metoprolol succinate. 5. Atrial fibrillation. Continue metoprolol, amiodarone, apixaban. 6. Hyperlipidemia. Continue statin. 7. Anemia. Continue ferrous sulfate. 8. Hypothyroidism. Continue levothyroxine. 9. Asthma. The patient does not appear to be on any inhalers. She does not appear to be in acute exacerbation. We will continue to monitor. 10. DVT prophylaxis: Continue home apixaban. 11. Code status: DNR/DNI. MOLST has been updated. TIME SPENT: Approximately 60 minutes was spent on this admission, greater than half that time was spent [id number] with the patient, her brother and her daughter obtaining history, performing physical, and reviewing the plan of care. The case has been reviewed with my attending Dr. Lazar, who is in agreement with the plan of care. ANN GONZALES [id number]/CPS #: [id number] VALE
[2019-04-28] MEDS: Insulin LISPRO* 1 UNITS UNIT SUBCUT SCH ×2 (18:58→22:41)
[2019-04-28] MEDS: Insulin GLARGINE(*) 1 UNITS UNIT SUBCUT SCH (18:58)
[2019-04-28] MEDS ORDERED: Apixaban* 5 MG TAB PO SCH (21:00)
[2019-04-28] MEDS: Atorvastatin* 20 MG TAB PO SCH (22:41)
[2019-04-28] MEDS ORDERED: Acetaminophen IV 1GM/100ML * 100 ML IVPB ONE (23:45)
[2019-04-29] MEDS ORDERED: Levothyroxine TAB* 175 MCG TAB PO SCH (06:00)
[2019-04-29 07:05] LABS: ABS Basophils 0.1 10^3/ul (0-0.2); ABS Eosinophils 0.2 10^3/ul (0-0.6); ABS Lymphocytes 1.1 10^3/ul (1.0-4.8); ABS Monocytes 0.7 10^3/ul (0-0.8); ABS Neutrophils 7.2 10^3/ul (1.5-7.7); Hematocrit 33 % (35-47); Hemoglobin 11.1 g/dL (12.0-16.0); Lymphocyte % 11.7 %; Mean Corpuscular HGB Conc 34 g/dL (31-36); Mean Corpuscular Hemoglobin 30 pg (27-31); Mean Corpuscular Volume 90 fL (80-97); Mean Platelet Volume 8.9 fL (7.4-10.4); Platelet Count 204 10^3/uL (150-450); Red Blood Count 3.69 10^6 /uL (3.70-4.87); Red Cell Distribution Width 15 % (10-15); White Blood Count 9.1 10^3/uL (3.5-10.8)
[2019-04-29 07:19] LABS: BUN/Creatinine Ratio 21.3 (8-20); EGFR Non-African American 32.6 (>60); Potassium 4.6 mmol/L (3.5-5.0)
[2019-04-29 07:20] LABS: Calcium 8.8 mg/dL (8.6-10.3); EGFR African American 39.4 (>60)
[2019-04-29] MEDS ORDERED: Ferrous Sulfate TAB* 325 MG PO SCH (09:00)
[2019-04-29] MEDS ORDERED: Enoxaparin(*) 150 MG/ML 1 ML SYRINGE SUBCUT SCH (09:00)
[2019-04-29] MEDS: Furosemide TAB* 20 MG PO SCH (09:12)
[2019-04-29] MEDS: Metoprolol Succinate XL TAB* 25 MG PO SCH (09:12)
[2019-04-29] MEDS: Insulin LISPRO* 1 UNITS UNIT SUBCUT SCH ×4 (09:12→22:02)
[2019-04-29] MEDS: Amiodarone TAB* 200 MG PO SCH ×2 (09:12→12:23)
[2019-04-29] MEDS: cefTRIAXone(*) 1 GM in NS 0.9% 50 ML* 50 ML IVPB SCH (13:28)
--- NOTE | 2019-04-29 13:36 | PN ---
NEUROLOGICAL FOLLOWUP NOTE: DATE OF SERVICE: 04/29/19 HISTORY: This is a neurological followup of this 73-year-old woman who had worsening stroke-like symptoms yesterday. She is much better today, but will fluctuate from her baseline, which is mild aphasia and right-sided weakness to being having slightly worse aphasia. She also has lability of mood. MEDICATIONS: Include: 1. Eliquis. 2. Amiodarone. 3. Lipitor. 4. Ceftriaxone. 5. Lasix. 6. Lantus. 7. Synthroid. 8. Metoprolol. REVIEW OF SYSTEMS: She has no complaints, although she gets depressed at times and has had some depression before. PHYSICAL EXAMINATION: Temperature 98.2, pulse 51, respirations 24, blood pressure 125/109 and currently 134/30. She is alert and oriented, has some mild aphasia, but clearly better than yesterday. She can say short sentences and has difficulty naming objects. She has 4/5 strength in her right arm and hand, which is apparently similar to what she has had in the past. She has emotional lability. Chest: Clear. Cardiovascular: Irregular rate and rhythm. Abdomen is soft with positive bowel sounds. DIAGNOSTIC STUDIES/LAB DATA: I reviewed her MRI scan, which showed her old stroke, but no new findings. Her MRI was not helpful. White count 9 today, hematocrit 33. BUN 13, creatinine 1.55. IMPRESSION AND PLAN: I discussed with the family in length that most likely she has had worsening neurological status due to systemic reasons such as her presumed urinary tract infection and most likely she will make progress if this is treated. I would not change her anticoagulation at this point. It would be reasonable to check an LDL and make sure that LDL is below 70 given her prior stroke, but not for anything current. I discussed with family that I will be glad to see as need arises. We also discussed with her and the family whether she would want clot retrieval in the future if she had a large vessel occlusion and it is clinically appropriate. They have discussed this with her and she has indicated that she would want that done if it was thought it was clearly medically indicated. I will be glad to see her back as need arises and I have a call in to the hospitalist about her blood pressures. Thank you for sharing her case. [id number]/[facility] #: [id number] VALE
--- NOTE | 2019-04-29 14:18 | PN ---
Subjective Date of Service: 04/29/19 Interval History: Ms. Abernathy is feeling okay today. She offers no complaints, though is moderately aphasic, so conversation is difficult. She denies CP, SOB, abdominal pain. Unclear if she knows where she is as speech was incoherent. Nursing reported patient was essentially unresponsive this morning, but woke later in the day and was oriented. Since that time mood and neuro deficits have waxed and waned. Family History: Unchanged from Admission Social History: Unchanged from Admission Past Medical History: Unchanged from Admission Objective Active Medications: Amiodarone HCl (Cordarone Tab*) 200 mg PO DAILY NORMAN Apixaban (Eliquis*) 5 mg PO BID NORMAN Atorvastatin Calcium (Lipitor*) 20 mg PO BEDTIME NORMAN Dextrose (Dextrose 50% Vial 50 Ml*) 25 ml IV PUSH .FOR FS < 60 - SS PRN FS < 60 Furosemide (Lasix Tab*) 20 mg PO DAILY NORMAN Ceftriaxone Sodium 1 gm/ (Sodium Chloride) 50 mls @ 100 mls/hr IVPB Q24H NORMAN Insulin Glargine (Lantus(*)) 10 units SUBCUT QPM NORMAN Insulin Human Lispro (Humalog*) 0 units SUBCUT ACHS NORMAN; Protocol Levothyroxine Sodium (Synthroid Tab*) 175 mcg PO 0600 NORMAN Metoprolol Succinate (Toprol Xl Tab*) 25 mg PO DAILY [facility] Vital Signs - 8 hr 04/29/19 07:15 Temperature 98.2 F Pulse Rate 51 Respiratory 24 Rate Blood Pressure 134/30 (mmHg) O2 Sat by Pulse 95 Oximetry Oxygen Devices in Use Now: None Appearance: Elderly female lying in bed in NAD Ears/Nose/Mouth/Throat: Mucous Membranes Moist Neck: NL Appearance and Movements; NL JVP, Trachea Midline Respiratory: Symmetrical Chest Expansion and Respiratory Effort, Clear to Auscultation Cardiovascular: NL Sounds; No Murmurs; No JVD Abdominal: NL Sounds; No Tenderness; No Distention Extremities: No Edema Neurological: - - Wakes to voice, orientation unclear, expressive aphasia Lines/Tubes/Other Access: Clean, Dry and Intact Peripheral IV Nutrition: Taking PO's Result Diagrams: 04/29/19 06:23 04/29/19 06:23 Assess/Plan/Problems-Billing Assessment: Ms. Abernathy is a 73 yo F with PMH of DM, HTN, HLD, afib on AC, CAD, CKD, hypothyroidism, asthma, JASMINE, chronic pain, CVA with residual R sided hemiparesis and aphasia; who presented to the ED d/t unresponsiveness and was found to have a UTI. - Patient Problems (1) Encephalopathy Code(s): G93.40 - ENCEPHALOPATHY, UNSPECIFIED Comment: - With recrudescence of stroke symptoms, suspected secondary to UTI - Appreciate Neuro consult - Supportive care - Plan as above (2) UTI (urinary tract infection) Comment: - Culture pending - Continue ceftriaxone (3) History of CVA (cerebrovascular accident) Code(s): Z86.73 - PRSNL HX OF TIA (TIA), AND CEREB INFRC W/O RESID DEFICITS Comment: - Residual right sided hemiparesis and aphasia - Continue Eliquis, atorvastatin (4) Afib Code(s): I48.91 - UNSPECIFIED ATRIAL FIBRILLATION Comment: - Continue amiodarone, Eliquis, metoprolol (5) Diabetes Code(s): E11.9 - TYPE 2 DIABETES MELLITUS WITHOUT COMPLICATIONS Comment: - Continue Lantus, Lispro SS (6) Hypertension Code(s): I10 - ESSENTIAL (PRIMARY) HYPERTENSION Comment: - Normotensive - Continue metoprolol, furosemide (7) Hypothyroidism Code(s): E03.9 - HYPOTHYROIDISM, UNSPECIFIED Comment: - TSH elevated, but it is unclear if dosing was recently changed or if patient is compliant with medication - Continue levothyroxine (8) DVT prophylaxis Comment: - Eliquis (9) DNR (do not resuscitate) Comment: Status and Disposition: Observation. Anticipate d/c home when medically stable. Attending: Andrew Mims
--- NOTE | 2019-04-29 14:27 | EEG ---
ELECTROENCEPHALOGRAPHY: DATE OF STUDY: 04/29/19- ROOM #[id number] DATE OF DICTATION: 04/29/19 PATIENT OF: ANN Retana CLINICAL PROBLEM: This is a 73-year-old woman being evaluated for either encephalopathy or an aphasia. This study was done to evaluate for seizures versus encephalopathy. MEDICATIONS: Include Rocephin. REPORT: With the patient in bed encephalopathic and aphasic, background consists of admixed delta and theta activity with left hemispheric slowing more pronounced than on the right. There is some sharp wave activity seen at times bilaterally, but more noted in the left temporal head region. No subclinical seizures are noted. CLINICAL IMPRESSION: This EEG is abnormal because of diffuse slowing of background with a major asymmetry with left hemispheric slowing as well as sharp activity suggesting underlying structural lesion such as the past stroke, but also suggesting a predisposition to a seizure disorder. [id number]/CPS #: [id number] MTDD
[2019-04-29] MEDS: NS 0.9% 1000 ML** 1,000 ML IV SCH (17:02)
[2019-04-29] MEDS: Insulin GLARGINE(*) 1 UNITS UNIT SUBCUT SCH (17:02)
[2019-04-29] MEDS: Apixaban* 5 MG TAB PO SCH (22:02)
[2019-04-29] MEDS: Atorvastatin* 20 MG TAB PO SCH (22:03)
[2019-04-30] MEDS: Levothyroxine TAB* 175 MCG TAB PO SCH (05:38)
[2019-04-30] MEDS: NS 0.9% 1000 ML** 1,000 ML IV SCH (05:39)
[2019-04-30] MEDS ORDERED: Levothyroxine INJ* 100 MCG/5 ML VIAL IV SCH (08:16)
[2019-04-30] MEDS: Insulin LISPRO* 1 UNITS UNIT SUBCUT SCH ×4 (08:19→20:36)
[2019-04-30] MEDS: Furosemide TAB* 20 MG PO SCH (08:26)
[2019-04-30] MEDS: Amiodarone TAB* 200 MG PO SCH (08:26)
[2019-04-30] MEDS: Apixaban* 5 MG TAB PO SCH ×2 (08:28→20:37)
[2019-04-30] MEDS: Metoprolol Succinate XL TAB* 25 MG PO SCH (08:28)
[2019-04-30] MEDS: cefTRIAXone(*) 1 GM in NS 0.9% 50 ML* 50 ML IVPB SCH (13:19)
[2019-04-30] MEDS ORDERED: hydrALAZINE IV* 20 MG/ML VIAL IV SLOW PU PRN (15:28)
--- NOTE | 2019-04-30 15:28 | PN ---
Subjective Date of Service: 04/30/19 Interval History: Ms. Abernathy is feeling better today. She does not feel confused, but her brother at bedside believes she is still slightly confused, though generally improved. She can state that she does have a history of aphasia, but does remember having episode of worsening aphasia yesterday. Denies CP, SOB, N/V, neuro deficits. No concerns from nursing. Family History: Unchanged from Admission Social History: Unchanged from Admission Past Medical History: Unchanged from Admission Objective Active Medications: Amiodarone HCl (Cordarone Tab*) 200 mg PO DAILY NORMAN Apixaban (Eliquis*) 5 mg PO BID NORMAN Atorvastatin Calcium (Lipitor*) 20 mg PO BEDTIME NORMAN Dextrose (Dextrose 50% Vial 50 Ml*) 25 ml IV PUSH .FOR FS < 60 - SS PRN FS < 60 Furosemide (Lasix Tab*) 20 mg PO DAILY [facility]CLUD[facility] Ceftriaxone Sodium 1 gm/ (Sodium Chloride) 50 mls @ 100 mls/hr IVPB Q24H COUNT INCLUDES THE [facility] Sodium Chloride (Ns 0.9% 1000 Ml) 1,000 mls @ 100 mls/hr IV PER RATE COUNT INCLUDES THE [facility] Insulin Glargine (Lantus(*)) 10 units SUBCUT QPM NORMAN Insulin Human Lispro (Humalog*) 0 units SUBCUT ACHS NORMAN; Protocol Levothyroxine Sodium (Synthroid Tab*) 175 mcg PO 0600 NORMAN Metoprolol Succinate (Toprol Xl Tab*) 25 mg PO DAILY COUNT INCLUDES THE [facility] Vital Signs - 8 hr 04/30/19 04/30/19 08:23 12:01 Temperature 98.9 F 99 F Pulse Rate 69 56 Respiratory 17 20 Rate Blood Pressure 152/47 165/52 (mmHg) O2 Sat by Pulse 95 94 Oximetry Oxygen Devices in Use Now: None Appearance: Elderly female sitting in bed in NAD Ears/Nose/Mouth/Throat: Mucous Membranes Moist Neck: NL Appearance and Movements; NL JVP, Trachea Midline Respiratory: Symmetrical Chest Expansion and Respiratory Effort, Clear to Auscultation Cardiovascular: NL Sounds; No Murmurs; No JVD, - - Irregular Abdominal: NL Sounds; No Tenderness; No Distention Neurological: - - Oriented to self and place; occasional expressive aphasia Lines/Tubes/Other Access: Clean, Dry and Intact Peripheral IV Nutrition: Taking PO's Result Diagrams: 04/29/19 06:23 11/20/19 06:23 Assess/Plan/Problems-Billing Assessment: Ms. Abernathy is a 73 yo F with PMH of DM, HTN, HLD, afib on AC, CAD, CKD, hypothyroidism, asthma, JASMINE, chronic pain, CVA with residual R sided hemiparesis and aphasia; who presented to the ED d/t unresponsiveness and was found to have a UTI. - Patient Problems (1) UTI (urinary tract infection) Comment: - Culture growing >100k colonies E. coli - Continue ceftriaxone (day 3/7) (2) Encephalopathy Code(s): G93.40 - ENCEPHALOPATHY, UNSPECIFIED Comment: - With recrudescence of stroke symptoms, suspected secondary to UTI - Significantly improved from yesterday, almost at baseline - Appreciate Neuro consult; EEG unremarkable for seizure activity, but shows likely predisposition to seizures d/t prior CVA - Supportive care (3) History of CVA (cerebrovascular accident) Code(s): Z86.73 - PRSNL HX OF TIA (TIA), AND CEREB INFRC W/O RESID DEFICITS Comment: - Residual right sided hemiparesis and aphasia - Continue Eliquis, atorvastatin (4) Afib Code(s): I48.91 - UNSPECIFIED ATRIAL FIBRILLATION Comment: - Continue amiodarone, Eliquis, metoprolol (5) Diabetes Code(s): E11.9 - TYPE 2 DIABETES MELLITUS WITHOUT COMPLICATIONS Comment: - Continue Lantus, Lispro SS (6) Hypertension Code(s): I10 - ESSENTIAL (PRIMARY) HYPERTENSION Comment: - Mostly normotensive - Continue metoprolol, furosemide (7) Hypothyroidism Code(s): E03.9 - HYPOTHYROIDISM, UNSPECIFIED Comment: - TSH elevated, but it is unclear if dosing was recently changed; will defer to PCP at [facility] - Continue levothyroxine (8) DVT prophylaxis Comment: - Eliquis (9) DNR (do not resuscitate) Comment: Status and Disposition: Observation. Anticipate d/c back to [facility] when medically stable. Attending: Andrew Mims
[2019-04-30] MEDS: Insulin GLARGINE(*) 1 UNITS UNIT SUBCUT SCH (17:30)
[2019-04-30] MEDS: Atorvastatin* 20 MG TAB PO SCH (20:37)
[2019-05-01] MEDS: Levothyroxine TAB* 175 MCG TAB PO SCH (06:01)
[2019-05-01 09:18] VITALS: BP 111/85
[2019-05-01] MEDS: Insulin LISPRO* 1 UNITS UNIT SUBCUT SCH ×2 (09:22→14:41)
[2019-05-01] MEDS: Amiodarone TAB* 200 MG PO SCH (09:24)
[2019-05-01] MEDS: Furosemide TAB* 20 MG PO SCH (09:25)
[2019-05-01] MEDS: Apixaban* 5 MG TAB PO SCH (09:25)
[2019-05-01] MEDS: Metoprolol Succinate XL TAB* 25 MG PO SCH (09:25)
[2019-05-01 10:20] LABS: HDL Cholesterol 38.2 mg/dL
--- NOTE | 2019-05-01 10:42 | DS ---
CC: Dr. Shruti Clarke, [facility] * DATE OF ADMISSION: 04/28/2019. DATE OF DISCHARGE: 05/01/2019. PRIMARY CARE PHYSICIAN: Dr. Shruti Clarke. ATTENDING PHYSICIAN: Dr. Andrew Mims * (dictated by Juany Page NP). PRIMARY DIAGNOSES: 1. Urinary tract infection, E. coli. 2. Metabolic encephalopathy causing recrudescence of stroke symptoms. SECONDARY DIAGNOSES: 1. Atrial fibrillation. 2. Diabetes mellitus type 2. 3. Hypertension. 4. Hyperthyroidism. STUDIES WHILE IN THE HOSPITAL: 1. Chest x-ray on 04/28/2019, reads as: Low lung volumes. No active cardiopulmonary disease. 2. EKG on 04/28/2019 shows sinus bradycardia with a rate of 44, QTC 458. This EKG appears consistent with previous EKG on file from earlier this year. 3. Brain CT on 04/28/2019, reads as: Wedge-shaped defect in the left posterior parietal lobe suggestive of evolving infarct. Chronic ischemic white matter change is noted. 4. Head CTA on 04/28/2019, reads as: Limited study. Consider repeat CT angiogram imaging, MRA imaging, or carotid ultrasound for further evaluation. Limited evaluation of the proximal internal carotid arteries as noted in the body of the report. The possibility of bilateral high-grade stenoses cannot be excluded. Hypodense area in the left posterior parietal lobe suggestive of a subacute less likely chronic infarct. 5. Brain MRI on 04/28/2019, reads as: No acute intracranial abnormality. Moderate chronic microvascular ischemic changes. 6. Neck MRA on 04/28/2019, reads as: Suboptimal examination secondary to motion artifact. No obvious acute abnormality. 7. EEG on 04/29/2019, reads as: This EEG is abnormal because of diffuse slowing of background with a major asymmetry with left hemispheric slowing as well as sharp activity suggesting underlying structural lesion such as the past stroke, but also suggesting a predisposition to a seizure disorder. CONSULTATIONS WHILE IN THE HOSPITAL: Dr. Brown from Neurology on 04/28/2019. HISTORY OF PRESENT ILLNESS/HOSPITAL COURSE: Ms. 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 Please see the history and physical by ANN Retana for a complete summary of the events leading up to this hospitalization. In short, the patient resides at [facility]. In the morning on the day of admission, she was found to be responsive only to painful stimuli and so was brought to the emergency room. In the emergency room, she was noted to have an elevated creatinine consistent with her baseline. She was noted to have an elevated troponin, although no EKG changes or obvious chest pain. TSH was noted to be elevated. Urinalysis was indicative of a urinary tract infection. Because of her mental status, Neurology consulted in the emergency room. At that time, it was felt as though her mental status was potentially secondary to UTI symptoms. She was admitted by the Hospitalist Service. The day after admission, on 04/29/2019, the patient's mental status waxed and waned. She had labile moods, though was generally somewhat improved. As noted on imaging above, there is no evidence of a new CVA, so it was felt that her encephalopathy was secondary to UTI and recrudescence of previous stroke symptoms. Dr. Brown saw the patient again and also felt as though this was likely secondary to UTI. Of note, the patient was also recently started on Baclofen approximately two days prior to admission to the hospital. She was treated with Ceftriaxone for her urinary tract infection and continued on her usual medications. She was additionally noted to have an elevated TSH on admission at 7.87 and is currently taking Levothyroxine. The next day, the patient's mental status eventually returned to baseline. Her brother was at the bedside and did feel as though she was mostly at baseline, although was still slightly somewhat confused. Of note, she does still have some expressive aphasia at baseline, though as of yesterday this was not any worse than usual. Urine culture did ultimately grow greater than 100,000 colonies of E. coli resistant only to penicillin. As of this morning, the patient reports feeling well. She offers no complaints. She was seen sitting in bed eating breakfast and is able to carry on a conversation with some mild aphasia. On exam, she is alert and oriented to self, place, and situation. Neurologically, she does have right-sided hemiparesis which is at her baseline as well as some right-sided numbness which is also at her baseline. Her heart has a regular rhythm and she remains bradycardic. There are no murmurs, rubs, or gallops. Lungs are clear to auscultation with rhonchi, wheezes, or rubs. There is mild to moderate nonpitting edema in the lower extremities. Abdomen is soft, nontender. Ms. Abernathy is stable for discharge today. Most recent vitals are as follows: Temperature 98.2, heart rate 49, respiratory rate 20, oxygen saturation 97 percent on room air, blood pressure 111/85. DISCHARGE MEDICATIONS: New medications: 1. Cephalexin 500 mg p.o. b.i.d. times 4 days. Changed medications: 2. Glargine 20 units subcu every night (previously was 28 units). Continued medications: 1. Amiodarone 200 mg p.o. daily. 2. Atorvastatin 20 mg p.o. at bedtime. 3. Furosemide 20 mg p.o. daily. 4. Metoprolol Succinate 25 mg p.o. daily. 5. Acetaminophen 650 mg p.o. q.6 hours prn fever or pain. 6. Eliquis 5 mg p.o. b.i.d. 7. Ascorbic acid 500 mg p.o. b.i.d. 8. Dulcolax suppository 10 mg p.r. q.24 hours prn constipation. 9. Cholecalciferol 50,000 units monthly. 10. Diclofenac 1% gel one application topically q.i.d. 11. Ferrous Sulfate 325 mg p.o. daily. 12. Guaifenesin 5 ml p.o. q.6 hours prn cough. 13. Humalog 4 units subcu every morning. 14. Humalog 6 units subcu in the afternoon and evening. 15. Levothyroxine 155 mcg p.o. daily. 16. Milk of Magnesia 30 ml p.o. q.6 hours prn constipation. 17. MiraLax 17 gm p.o. every other day prn constipation. 18. Tramadol 50 mg p.o. q.6 hours prn pain. Discontinued medications: Baclofen. DISCHARGE PLAN: Ms. Abernathy will be discharged back to [facility]. ACTIVITY: As tolerated. The patient is a Tyron at baseline. She can resume her usual physical therapy, occupational therapy, and speech therapy. DIET: Diabetic and heart healthy. MEDICATIONS: Medications are noted above. The patient will need to complete four days of Cephalexin to complete a total of seven days of antibiotic therapy for her urinary tract infection. I have discontinued the Baclofen as it is unclear if this did contribute at all to her symptoms on arrival. She has not been on this while in the hospital and has improved, but that is also likely secondary to urinary tract infection, though at this point I think it is rothman to hold this medication. She can continue her other usual medications as noted above with the exception of her Glargine. I have decreased the dose of this slightly, as blood sugars have been well-controlled here in the hospital, a dose lower than her home dose. The patient will need to follow-up with a provider at [facility] in the next four to seven days. She should return to the emergency room or nearest hospital for any worsening of symptoms, shortness of breath, lightheadedness, dizziness, chest discomfort, high fevers, chills, night sweats, loss of consciousness, or any other worrisome signs or symptoms. CONDITION ON DISCHARGE: Stable. DISCHARGE DISPOSITION: detention facility, [facility]. This is a summarized report of a complex medical history and hospital stay. For further details, please see the entire medical record. TIME SPENT: Approximately 50 minutes were spent on this discharge. JUANY PAGE NP [id number]/[facility] #: [id number] [place]
== END 2019-05-01 13:44 | DRG 689 ==
LOC: ED 11:48 → MEDTELE 15:19 → OBSVTOIN 04-30 16:00
PROVIDERS: ADMIT Internal Medicine; ATTEND Internal Medicine
PROC: 4A10X4Z Monitoring of Central Nervous Electrical Activity, External Approach (ICD-10-PCS; principal; 2019-04-29)
DX: N39.0 Urinary tract infection, site not specified (principal); G93.41 Metabolic encephalopathy; R40.2342 Coma scale, best motor response, flexion withdrawal, at arrival to emergency department; R40.2222 Coma scale, best verbal response, incomprehensible words, at arrival to emergency department; Z16.11 Resistance to penicillins; Z68.43 Body mass index [BMI] 50.0-59.9, adult; I69.351 Hemiplegia and hemiparesis following cerebral infarction affecting right dominant side; B96.20 Unspecified Escherichia coli [E. coli] as the cause of diseases classified elsewhere; Z66 Do not resuscitate; I48.91 Unspecified atrial fibrillation; I65.23 Occlusion and stenosis of bilateral carotid arteries; I25.10 Atherosclerotic heart disease of native coronary artery without angina pectoris; I12.9 Hypertensive chronic kidney disease with stage 1 through stage 4 chronic kidney disease, or unspecified chronic kidney disease; E11.22 Type 2 diabetes mellitus with diabetic chronic kidney disease; N18.9 Chronic kidney disease, unspecified; J45.909 Unspecified asthma, uncomplicated; G47.33 Obstructive sleep apnea (adult) (pediatric); K21.9 Gastro-esophageal reflux disease without esophagitis; G89.29 Other chronic pain; R79.89 Other specified abnormal findings of blood chemistry; R20.0 Anesthesia of skin; E78.00 Pure hypercholesterolemia, unspecified; M54.9 Dorsalgia, unspecified; F40.240 Claustrophobia; H26.9 Unspecified cataract; F41.9 Anxiety disorder, unspecified; E66.9 Obesity, unspecified; F32.9 Major depressive disorder, single episode, unspecified; R40.2132 Coma scale, eyes open, to sound, at arrival to emergency department; E03.9 Hypothyroidism, unspecified; E78.5 Hyperlipidemia, unspecified; I69.320 Aphasia following cerebral infarction; Z79.01 Long term (current) use of anticoagulants; Z79.890 Hormone replacement therapy; Z79.4 Long term (current) use of insulin; Z88.5 Allergy status to narcotic agent; Z88.8 Allergy status to other drugs, medicaments and biological substances; Z96.653 Presence of artificial knee joint, bilateral; Z98.42 Cataract extraction status, left eye; Z87.891 Personal history of nicotine dependence; Z72.89 Other problems related to lifestyle
CPT/HCPCS: 36415; 70450; 70496; 70498; 70547; 70551; 71045; 80048; 80053; 80061; 80307; 80320; 81003; 81015; 83605; 84439; 84443; 84484; 85025; 87040; 87077; 87086; 87186; 87641; 93005; 95816; 96374; 99284; A9270-GY; G0378; G0480; J0696; J1650; Q9967